=== PATIENT | male | born 1950 | race Caucasian/White ===

== ENCOUNTER → 2019-03-08 11:33 | Outpatient (CLI) | payer MEDICARE, OTHER, SELFPAY | PROVIDERS: Family Provider Family Medicine; PCP Family Medicine; Referring Provider Specialist; Visit Provider Specialist | DX: M79.652 Pain in left thigh (principal); Z96.642 Presence of left artificial hip joint | CPT/HCPCS: 87070; 87075; 87205 ==

== ENCOUNTER → 2019-03-22 08:00 | Outpatient (CLI) | payer MEDICARE, OTHER, SELFPAY ==
[2019-03-15 13:36] VITALS: BMI 29.6
== END ==
PROVIDERS: PCP Family Medicine; Referring Provider Surgery; Visit Provider Surgery
DX: Z01.89 Encounter for other specified special examinations (principal); E11.9 Type 2 diabetes mellitus without complications
CPT/HCPCS: 97802

== ENCOUNTER 2019-04-16 06:55 | Inpatient (IN) | payer MEDICARE, OTHER, SELFPAY ==
[2019-03-15 13:36] VITALS: BMI 29.6
[2019-03-26 11:20] VITALS: BP 140/66; PULSE 63; RESP 16; TEMP 36.3; O2SAT 98; BMI 30.1
[2019-03-26 12:17] LABS: Absolute Lymphocyte Count 2.73 X10^3/uL (0.83-4.51); Absolute Neutrophil Count 5.8 X10^3/uL (2.0-7.7); Basophil# 0.03 X10^3/uL; Basophil% 0.3 % (0-1); Eosinophil# 0.27 X10^3/uL; Eosinophils% 2.8 % (0-5); Hematocrit 40.7 % (40-54); Hemoglobin 13.1 g/dL (13.0-16.5); Lymphocyte # 2.73 X10^3/ul (4.0); Lymphocyte % 28.1 % (19-41); Mean Corp Hgb Conc 32.2 g/dL (32-36); Mean Corpuscular Hgb 28.2 pg (27.0-32.0); Mean Corpuscular Volume 87.7 fL (80-94); Monocyte# 0.83 X10^3/uL; Monocyte% 8.5 % (0-10); NRBC Flagged by Analyzer 0 % (0-5); Neutrophil # 5.83 X10^3/uL (2.7-7.7); Neutrophil % 59.9 % (47-70); Platelet Count 203 K/mm3 (150-450); RBC Distribution Width SD 41.2 fl (35.1-43.9); Red Blood Count 4.64 M/mm3 (4.6-6.2); White Blood Count 9.7 K/mm3 (4.4-11.0)
[2019-03-26 12:26] LABS: Hemoglobin A1c 7.7 % (4.2-6.3)
[2019-03-26 12:38] LABS: Anion Gap 7 (5-15); BUN 13 mg/dL (7-18); BUN/Creat Ratio 15.3 RATIO (10-20); Calcium,Total 9.8 mg/dL (8.5-10.1); Chloride 102 mmol/L (98-107); Creatinine, Serum 0.85 mg/dL (0.70-1.30); EST Glomerular Filtration Rate 95 mL/min (>60); Est Glom Filt Rate - Afr Amer 114 mL/min (>60); Estimated Creatinine Clearance 79.35 ml/min; Glucose 81 mg/dL (74-106); Potassium 3.8 mmol/L (3.5-5.1); Sodium Level 135 mmol/L (136-145)
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
[2019-04-16] VITALS (12 sets, daily range): BP systolic 87–153; BP diastolic 45–77; PULSE 54–90; RESP 16–18; TEMP 36.3–37.5; O2SAT 95–100; BMI 30.1
[2019-04-16 07:51] LABS: Bedside Glucose 301 mg/dL (70-110)
[2019-04-16] MEDS: Scopolamine 1mg/72hr Patch 1 PATCH TRANSDERM. (08:03)
[2019-04-16] MEDS: Acetaminophen 500 MG Tablet 1000 MG PO ×3 (08:03→21:44)
[2019-04-16] MEDS: Gabapentin 600 MG Tablet PO (08:04)
[2019-04-16] MEDS: Insulin Lispro 100 UNIT/ML INSULN.PEN SC (08:05)
[2019-04-16] MEDS: Vancomycin IV 1,000 MG/20 ML Vial 6000 MG OPERA.SITE (12:09)
--- NOTE | 2019-04-16 12:13 | PCM.OPRPT ---
Report of Operation Date of Procedure: 04/16/19 Pre-Operative Diagnosis: Infected left total hip replacement Post-Operative Diagnosis: Left total hip periprosthetic infection Surgery/Procedure Performed:: Posterior hip explant and placement of left antibiotic spacer Description of Surgical Findings:: Stable hip, appropriate leg lengths prosthetics technician: Chi Schneider Type of Anesthesia:: General Anesthesiologist: Denilson Lunsford Special Medications: Clindamycin, vancomycin and tobramycin in cement Specimen's removed: 3 separate specimens were sent to microbiology Estimated Blood Loss (mL): 300 mL Fluids Replaced: 2 L crystalloid Description of Procedure: Findings: Adequate reduction with stability of the hip and equal leg lengths measured intraoperatively. Components used: 1. Edin [place] 37.5, size 2 2. Edin X3 polyethylene liner, alpha code E 4. Edin double chromium 40 mm, +8 mm neck femoral head Brief history operative indications: 68-year-old male who presented with a sinus tract on his medial thigh. This was treated by the wound center which eventually healed. However he had subsequent developed hip pain. Infection work-up was consistent with a hip joint infection including fluid around the joint on imaging. At this time we elected to proceed with a antibiotic spacer. Risks and benefits were discussed with the patient which included but were not limited to blood loss, DVTs, PEs, infection, neurovascular damage, and dislocation. Procedure: On the date of procedure the patient's l hip was marked in the preoperative area. Patient was then taken back to the operating room where anesthesia assumed control of the C-spine and airway and administered anesthetic. Patient was transferred to the operating table and placed in the lateral decubitus position with the affected hip up. The patient was secured in the bed with the lateral positioners and leg lengths were checked. The l lower extremity was then prepped out in a sterile fashion using chlorhexidine while the surgeon scrubbed. Upon reentering the room the l lower extremity was draped in the standard orthopedic fashion and the incision was marked. A timeout was called and everyone agreed upon the side, the site, the procedure be performed, antibiotics given, and patient's identity. At this time incision was made through skin, subcutaneous tissue, and fat down to fascia. The fascia was then incised and a Charley retractor was placed. The soft tissue was then cleared from the posterior external rotators and the piriformis was identified. Posterior hip structures were taken down in a sleevelike fashion. At this time once we identified the joint a complete synovectomy was performed. Some of the synovium was sent for culture. We were able to then dislocate the joint. After dislocating the joint a bone tamp was used to dissociate the femoral head from the femur. Attention was then turned to the femur where the proximal femur was appropriately exposed using a vazquez retractor. At this time we used a bur as well as a flexible osteotome to break up the bone ingrowth interface. Once we are able to do this a extractor was placed on the femoral trunnion and it was backslapped out of the wound. This came out without significant bone loss. Membrane was removed from the canal and sent for culture. The canal was reamed and then broached to a size 2, 37.5 mm Benham stem. Our attention was then directed to the acetabulum and the anterior retractor was placed and a zelpi was used to retract the posterior capsule superiorly. All soft tissue debris was removed from around the acetabular rim. A 52 mm cup tome extractor system was used to break up the bone cement interface. Once this was done the acetabular component was removed from the wound. Membrane was removed from the acetabulum and sent for culture. At this time we touch the acetabulum with a 53 mm reamer to debride the interface. At this time the wound was copiously irrigated out with 6 L of normal saline under low-pressure lavage. Once this was done the trial femur was put into place. The trial acetabular component was selected. A millimeter acetabular shell size E. After this was done we trialed to get rough estimation of our leg length and stability. Once we had an idea of where we wanted to cement our stem the cement was mixed with the antibiotics on the back table. Once the cement was ready we pressurized the acetabulum and cemented the cup into place. We then turned our attention to the femur and cemented the femur into place around the proximal stem. Once the cemented cured we reduced the hip trialing with a +8 mm stem. This gave us adequate leg lengths and stable hip. Trial components were again dislocated with the help of my high school assistant football coach trunnion was cleared and the final implant was impacted into place. Finally the hip was reduced. Chlorhexidine solution was used to irrigate out the wound followed by copious amounts of normal saline. Posterior structures were not repairable. At this time the remainder the wound was closed in a layer aguillon fashion. Closure was then done using #1 Vicryl to close the fascia. A 2-0 Vicryl interrupted sutures were used to close the subcutaneous skin. Skin eh were used for final skin closure. A sterile dressing was placed. Patient was awakened by anesthesia and transferred to the [place]. Patient was then transferred to the PACU for recovery. Postoperative plan: Infectious disease will be consulted. Patient will be started on IV antibiotics for 6 weeks. He will be partial touchdown weightbearing for 2 weeks followed by partial weightbearing until the implants are removed and final hip replacement is placed. During the course of the procedure the physician high school assistant football coach played a vital role. His intimate knowledge of my steps in the procedure aided in safe and expedient completion of the procedure. The PA played a vital rolls in positioning particularly in obtaining the appropriate lateral decubitus positioning. The PA was also vital in the retraction of soft tissues during the exposure and especially the femoral work as this is a vital part of the procedure to prevent complications and fractures. The PA was also vital and protecting soft tissues during times of bony cuts and reaming. He also played a vital role in closure with my direct supervision. The PA was also important during reduction and dislocation of the joint and trials intraoperatively. - Complications No intraoperative complications - Admit VTE Documentation VTE Present on Admission: No VTE Mechan Device Prophylaxis: SCD's, Thigh High ALEXANDRA Hose VTE Pharm Prophylaxis ordered?: Yes
[2019-04-16] MEDS: Lactated Ringers 1,000 ML 125 ML IV ×4 (12:51→16:33)
[2019-04-16] MEDS: Lactated Ringers 1,000 ML 999 ML IV (12:52)
--- NOTE | 2019-04-16 12:56 | RAD_ITS ---
STUDY: X-RAY - PELVIS AND LEFT HIP REASON FOR EXAM: Male, 68 years old. Post op TECHNIQUE: 2 views of the pelvis and hip. COMPARISON: None. FINDINGS: The patient is status post left hip replacement. There is good alignment. Postoperative soft tissue changes. RAD/Hip Min 2 Views (Portable) IMPRESSION: Status post left hip replacement. The alignment. Postoperative soft tissue changes. Electronically Signed: Ryan Leonardo, at 13:28 EST , Service support ,
[2019-04-16 13:26] LABS: Bedside Glucose 122 mg/dL (70-110)
[2019-04-16 13:40] LABS: Bedside Glucose 117 mg/dL (70-110)
--- NOTE | 2019-04-16 14:31 | PCM.HP.ID ---
Reason for Consult: L hip PJI Consulted by: Dr. Raphael History of Present Illness: The patient is a 68 year old M with L hip replacement, presented with worsening pain, redness, swelling. At [facility] had CT done 03/05/19 which showed 6.5x4x3 abscess and likely joint involvement. Wound cx (+) group G strep. Referred to Dr. Raphael and Dr. Alcala as well as myself. Was started on duricef as an outpt while surgery was pending. Tolerated it well with no fever, no rash, no itching. L hip with increasing pain, taken to OR today 04/[address] Raphael for spacer placement. Feeling ok, in PACU now. Full ROS Performed and neg except as noted above. 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 PATIENT UNAWARE OF ANY OTHER ALLERGY. WASP STINGS Allergy (Severe, Uncoded 03/22/19 08:14) Anaphylaxis USES EPI PEN Home Medications: Ambulatory Orders Medication Instructions Recorded ascorbic acid (vitamin C) 1,000 mg 1 g PO BID tab 03/15/19 tablet atorvastatin 20 mg tablet 20 mg PO QHS 03/15/19 docusate sodium 100 mg capsule 100 mg PO PRN PRN cap 03/15/19 ibuprofen 200 mg capsule 200 mg PO Q6H PRN 03/15/19 metformin 500 mg tablet 500 mg PO BID tab 03/15/19 niacin 500 mg tablet 500 mg PO BID 03/15/19 tizanidine 4 mg capsule 4 mg PO PRN PRN cap 03/15/19 L.acidoph,Paracasei, B.lactis 1 ea PO DAILY 03/22/19 [Probiotic] Meloxicam 15 mg PO DAILY 03/22/19 Multivit-Min/FA/Lycopen/Lutein 1 ea PO DAILY 03/22/19 [Centrum Silver Men Tablet] [place]-3 Fatty Acids/Fish Oil [Fish 2 ea PO DAILY 03/22/19 Oil 1,000 mg Capsule] Ceftriaxone 2 gm IV Q24 41 Days #41 vial 04/16/19 Valsartan [Diovan] 160 mg PO DAILY 04/16/19 - Social History SMOKING STATUS:: Former smoker Vital Signs Temp Pulse Resp BP Pulse Ox 97.5 F L 82 18 138/68 H 100 04/16/19 14:18 04/16/19 14:18 04/16/19 14:18 04/16/19 14:18 04/16/19 14:18 Oxygen Flow Rate (L/min) 6 Oxygen Delivery Method Simple Mask Weight: 89.8 kg Body Mass Index (BMI) 30.1 Finger Stick Blood Glucose 120 reviewed. Wbc 10, Cr 0.8 - Other Studies Radiology: [] reviewed Other Studies: [] Route of nutrition/ use of supplements: [] Nutritional Intake: [] IV Site: [] Quiros Catheter: [] - Physical Exam General: Alert, Oriented x3, Cooperative, No apparent distress HEENT: Atraumatic, PERRLA, EOMI Neck: Supple, No Nodes Lungs: Clear to auscultation, Normal air movement Cardiovascular: Regular rate, Regular Rhythm Abdomen: Soft, Non Tender, Non-Distended Extremities: No edema Skin: Incision - L hip bandaged IV Site: Peripheral, without redness Neurological: Cranial nerves II-XII grossly intact - Assessment/Plan Antibiotics: [] Assessment/Plan: [] Group G strep L hip PJI - now s/p spacer placement 04/16/[address] Raphael. Reviewed [facility] labs and imaging. Wound cx 03/05/19 with group G strep. Will order picc, plan on 6 week course of ceftriaxone, stop date 05/28/19 with weekly bmp, cbc, and esr. Plan may change if other organisms are seen in surg cxs. Wrote rx for labs and abx. PCN allergy, but tolerated duricef without issue as an outpt. Will follow, thank you, d/w classification case manager.
[2019-04-16] MEDS: Morphine 2 MG/ML Syringe IV (16:36)
--- NOTE | 2019-04-16 16:44 | PCM.CONS.GEN ---
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 History of Present Illness: The patient is a 68 year old M with history of diabetes mellitus, hypertension and degenerative joint disease with history of multiple orthopedic surgeries is admitted after elective posterior hip explant and placement of left antibiotic spacer for infective left total hip replacement with an abscess and sinus tract. Patient had left hip replacement in 2008 in [facility] and then had left hip drainage of abscess in 07/01/2018 and 01/13/2019. At [facility], patient had CT in March 05, 2019 which showed 6.5 x 4 x 3 abscess with sinus tract. Patient seen by ID. Wound culture grew group G Streptococcus Patient on cefadroxil as an outpatient. [] Usually the blood pressure is 138/68- 1 =45/75 but was hypotensive 87/45 at 1452, low probably secondary to anesthetic effect. Patient had Ringer lactate 1 L bolus given in recovery room. 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 PATIENT UNAWARE OF ANY OTHER ALLERGY. WASP STINGS Allergy (Severe, Uncoded 03/22/19 08:14) Anaphylaxis USES EPI PEN Home Medications: Ambulatory Orders Medication Instructions Recorded ascorbic acid (vitamin C) 1,000 mg 1 g PO BID tab 03/15/19 tablet atorvastatin 20 mg tablet 20 mg PO QHS 03/15/19 docusate sodium 100 mg capsule 100 mg PO PRN PRN cap 03/15/19 ibuprofen 200 mg capsule 200 mg PO Q6H PRN 03/15/19 metformin 500 mg tablet 500 mg PO BID tab 03/15/19 niacin 500 mg tablet 500 mg PO BID 03/15/19 tizanidine 4 mg capsule 4 mg PO PRN PRN cap 03/15/19 L.acidoph,Paracasei, B.lactis 1 ea PO DAILY 03/22/19 [Probiotic] Meloxicam 15 mg PO DAILY 03/22/19 Multivit-Min/FA/Lycopen/Lutein 1 ea PO DAILY 03/22/19 [Centrum Silver Men Tablet] [place]-3 Fatty Acids/Fish Oil [Fish 2 ea PO DAILY 03/22/19 Oil 1,000 mg Capsule] Ceftriaxone 2 gm IV Q24 41 Days #41 vial 04/16/19 Valsartan [Diovan] 160 mg PO DAILY 04/16/19 Surgical History: Surgical History (Last Reviewed 03/17/19 @ 18:13 by Chavo Alcala MD) History of carpal tunnel surgery Z98.890 History of elbow surgery Z98.890 History of epidermal inclusion cyst excision Z98.890, Z87.2 2 CLEAN OUTS OF CYST ON LEFT LEG History of shoulder replacement Z96.619 History of total left hip replacement Z96.642 Smoking Status: Former smoker Tobacco Use: Non-smoker - *Family History Paternal Family History: Family History (Last Reviewed 03/17/19 @ 18:13 by Chavo Alcala MD) Other Arthritis High cholesterol Hypertension Thyroid disorder History Items: - - Degenerative arthritis and had hip surgeries. Review of Systems Constitutional: Reports: - - Lethargic. Denies: Chills, Fever, Weight Change HEENT: Denies: Head Aches, Sinus Congestion, Sinus Drainage Cardiovascular: Denies: Chest Pain, Palpitations Respiratory: Denies: Cough, Shortness of breath at rest, Sputum production Gastrointestinal: Denies: Abdominal Pain, Nausea, Vomiting Genitourinary: Denies: Dysuria Musculoskeletal: Reports: Joint Pain, Joint Tenderness, Muscle pain Skin: Denies: Rash, Wounds Neurological: Reports: Balance problems. Denies: Focal weakness, Numbness, Tingling Psychiatric: Denies: Anxiety, Depression, Homicidal Ideations, Suicidal Ideations Hematologic/ Lymphatic: Denies: Easy Bruising, Easy Bleeding - Physical Exam Vitals/I&O's: Vital Signs Temp Pulse Resp BP Pulse Ox 98.1 F 73 16 87/45 L 95 04/16/19 14:52 04/16/19 14:52 04/16/19 14:52 04/16/19 14:52 04/16/19 14:52 Oxygen Flow Rate (L/min) 6 Oxygen Delivery Method Room Air Weight: 197 lb 15.602 oz Body Mass Index (BMI) 30.1 Finger Stick Blood Glucose 120 Intake and Output for Last 24 Hours 04/14/19 04/15/19 04/16/19 23:59 23:59 23:59 Intake Total 3497.08 / 3497.08 Balance 3497.08 / 3497.08 General: Alert, Oriented x3, Cooperative HEENT: Atraumatic, PERRLA, EOMI, Normocephalic Oral: No Gingival or Mucosal Lesions/ Ulcerations, Dry Mucosa Neck: Supple, No JVD, Negative Carotid Bruits Lungs: Clear to auscultation, No rhonchi, No wheeze, No rales, Diminished Cardiovascular: Regular rate, Regular Rhythm, Normal S1, Normal S2, No murmurs Abdomen: Bowel Sounds Present, Soft, Non Tender Extremities: No edema, Capillary Refill Less than 3 Seconds Skin: No rashes, No breakdown Musculoskeletal: No Tenderness to Palpation of Joints or Extremities, Arthritic Changes, - - Left hip dressing is dry. Neurological: Cranial nerves II-XII grossly intact, Deep Tendon Reflexes 2+/4 and Symmetrical, Neuro grossly intact Psych/Mental Status: Normal Affect, Appropriate Microbiology Past 72 Hours 04/16/19 Unknown Tissue - Other Gram Stain - Final 04/16/19 Unknown Tissue - Other Gram Stain - Final Laboratory Results 04/16/19 07:37: POC Glucose 301 H 04/16/19 10:59: POC Glucose 117 H 04/16/19 13:04: POC Glucose 122 H Current Medications Acetaminophen (Tylenol) 1,000 mg PO Q8 [facility] Ascorbic Acid (Vitamin C) 1,000 mg PO BIDCM [facility] Aspirin (Aspirin, Baby) 81 mg PO BID [facility] Atorvastatin Calcium (Lipitor) 20 mg PO QHS [facility] Docusate Sodium (Colace) 100 mg PO BID PRN PRN PRN Reason: Constipation Enteral Nutritional Formula (Ensure Surgery) 237 ml PO TIDCM [facility] Famotidine (Pepcid) 20 mg PO DAILY [facility] Lactated Ringer's () 1,000 mls @ 125 mls/hr IV .Q8H [facility] Last Infusion: 04/16/19 16:20 Dose: Infused Documented by: Lactated Ringer's () 1,000 mls @ 125 mls/hr IV .Q8H [facility] Last Admin: 04/16/19 16:33 Dose: 125 mls/hr Documented by: Clindamycin Phosphate 600 mg/ (Dextrose) 54 mls @ 100 mls/hr IV Q6H [facility] Stop: 04/17/19 03:18 Ceftriaxone Sodium 2 gm/ (Sodium Chloride) 50 mls @ 100 mls/hr IV Q24 [facility] Last Admin: 04/16/19 16:30 Dose: 100 mls/hr Documented by: Insulin Human Lispro (Humalog Jeffreyikpen (Bk)) 1 - 6 unit SC Q4H PRN PRN; Protocol PRN Reason: BG>/= 180, SEE PROTOCOL Last Admin: 04/16/19 08:05 Dose: 4 units Documented by: Ketorolac Tromethamine (Toradol (Bkc)) 15 mg IV Q6H PRN PRN PRN Reason: Pain Score 1-5/10 Lactobacillus Acidophilus (Acidophilus) 1 tablet PO DAILY [facility] Meloxicam (Mobic) 7.5 mg PO BID [facility] Metformin HCl (Glucophage) 500 mg PO BIDCM [facility] Morphine Sulfate () 2 - 4 mg IV Q2H PRN PRN PRN Reason: Pain Score 4-10/10 Last Admin: 04/16/19 16:36 Dose: 2 mg Documented by: Niacin (Niaspan) 500 mg PO BID [facility] Mjact-3-Ryau Ethyl Esters (Lovaza) 2 gm PO DAILY [facility] Ondansetron HCl (Zofran) 4 mg IV Q8H PRN PRN PRN Reason: NAUSEA Oxycodone HCl (Oxyir) 5 - 10 mg PO Q4H PRN PRN PRN Reason: Pain Score 4-10/10 Promethazine HCl (Phenergan) 12.5 mg IM Q6H PRN PRN; Protocol PRN Reason: NAUSEA/VOMITING Senna/Docusate Sodium (Senokot-S, Cynthia-Colace) 2 tablet PO BID [facility] Sodium Chloride () 10 - 40 ml IV UD PRN PRN Reason: SALINE FLUSH Tizanidine HCl (Zanaflex) 4 mg PO TID PRN PRN PRN Reason: MUSCLE RELAXATION Valsartan (Diovan) 160 mg PO DAILY [facility] Assessment/Plan This is a 68-year-old gentleman with history of degenerative arthritis, admitted after elective posterior hip explant and placement of left antibiotic spacer for infective left total hip replacement with an abscess and sinus tract. 1. Infected left total hip replacement with abscess and sinus tract status post left hip antibiotic spacer and explant: [facility] ceft[facility]ax[facility] as per ID recommendation. Patient grew group G Streptococcus wound culture before. Tissue culture from surgery are sent and pending. Will follow the tissue culture. PICC line ordered. Plan for 6 weeks course of ceftriaxone, stop date 05/28/2019 as per ID. Pain control. On tizanidine. 2. Hypertension: Blood pressure has recovered 110/62. Hold valsartan today and resume from tomorrow with holding parameters. 3. Diabetes mellitus type 2: Patient is on metformin. Glucose is controlled 122, maximum 177. Continue Accu-Cheks AC measures and cover with blood sliding scale. 4. Dyslipidemia: Patient is on atorvastatin, niacin and omega-3 fatty acid at home. Continue. 5. Other comorbidities include history of degenerative arthritis, multiple orthopedic surgeries: Stable. PT and OT ordered. DVT prophylaxis: On aspirin 81 mg twice daily as per orthopedic surgery recommendation. Code Visit Inpatient E&M: 47756 Init Hosp L2
[2019-04-16] MEDS: Ascorbic Acid 500 MG Tablet 1000 MG PO (16:50)
[2019-04-16] MEDS: metFORMIN HCl 500 MG Tablet PO (16:51)
[2019-04-16] MEDS: Ensure Surgery 237 ML LIQUID PO (16:57)
[2019-04-16 17:00] LABS: Bedside Glucose 177 mg/dL (70-110)
[2019-04-16] MEDS: Ketorolac 15 MG/ML Vial IV (17:19)
[2019-04-16] MEDS: 0.9% Saline Lock 10 ML Syringe IV ×2 (17:19→21:46)
[2019-04-16 21:03] LABS: Hematocrit 28.4 % (40-54); Hemoglobin 9.3 g/dL (13.0-16.5)
[2019-04-16] MEDS: Aspirin 81 MG TAB.CHEW PO (21:44)
[2019-04-16] MEDS: Niacin SA 500 MG Tablet PO (21:44)
[2019-04-16] MEDS: Senna/Docusate Sodium 1 Tablet 2 TABLET PO (21:45)
[2019-04-16] MEDS: Atorvastatin Calcium 20 MG Tablet PO (21:45)
[2019-04-16] MEDS: oxyCODONE 5 MG Tablet PO (21:48)
[2019-04-17] MEDS: Lactated Ringers 1,000 ML 125 ML IV ×2 (01:57→11:00)
[2019-04-17 02:00] VITALS: BP 140/67; PULSE 73; RESP 16; TEMP 36.8; O2SAT 98
[2019-04-17] MEDS: oxyCODONE 5 MG Tablet PO ×4 (02:02→21:15)
[2019-04-17] MEDS: Acetaminophen 500 MG Tablet 1000 MG PO ×3 (06:45→21:15)
[2019-04-17 07:23] LABS: Hematocrit 29.2 % (40-54); Hemoglobin 9.5 g/dL (13.0-16.5); Mean Corp Hgb Conc 32.5 g/dL (32-36); Mean Corpuscular Hgb 29.1 pg (27.0-32.0); Mean Corpuscular Volume 89.6 fL (80-94); Mean Platelet Vol. 10.5 fl (6.2-12.0); Platelet Count 139 K/mm3 (150-450); RBC Distribution Width CV 12.8 % (11.6-14.6); Red Blood Count 3.26 M/mm3 (4.6-6.2); White Blood Count 8.2 K/mm3 (4.4-11.0)
[2019-04-17 08:11] LABS: Anion Gap 6 (5-15); BUN 15 mg/dL (7-18); BUN/Creat Ratio 15.3 RATIO (10-20); Calcium,Total 8.4 mg/dL (8.5-10.1); Chloride 100 mmol/L (98-107); Creatinine, Serum 0.98 mg/dL (0.70-1.30); EST Glomerular Filtration Rate 80 mL/min (>60); Est Glom Filt Rate - Afr Amer 97 mL/min (>60); Estimated Creatinine Clearance 68.83 ml/min; Glucose 150 mg/dL (74-106); Potassium 4.2 mmol/L (3.5-5.1); Sodium Level 135 mmol/L (136-145)
[2019-04-17] MEDS: Aspirin 81 MG TAB.CHEW PO ×2 (08:35→21:16)
[2019-04-17] MEDS: Ascorbic Acid 500 MG Tablet 1000 MG PO ×2 (08:35→17:10)
[2019-04-17] MEDS: metFORMIN HCl 500 MG Tablet PO ×2 (08:36→17:10)
[2019-04-17] MEDS: Omega-3 Acid Ethyl Esters 1 GM Capsule 2 GM PO (08:36)
[2019-04-17] MEDS: Famotidine 20 MG Tablet PO (08:37)
[2019-04-17] MEDS: Senna/Docusate Sodium 1 Tablet 2 TABLET PO ×2 (08:37→21:16)
[2019-04-17] MEDS: Ensure Surgery 237 ML LIQUID PO ×3 (08:39→17:09)
[2019-04-17 08:45] VITALS: BP 88/43; PULSE 74; RESP 18; TEMP 37.2; O2SAT 94
[2019-04-17] MEDS: Lactated Ringers 1,000 ML 999 ML IV (09:15)
--- NOTE | 2019-04-17 09:16 | PN.ORTHO_ITS ---
Subjective: Patient is doing well, no acute events overnight. He did have some fluctuations in blood pressure and blood pressure this morning was systolic of 88. His hemoglobin is stable from yesterday. He did experience some lightheadedness when getting up this morning. No fevers chills or night sweats otherwise. No chest pain or shortness of breath. Hip feels good. PICC line is been placed. Objective: Postop x-rays show appropriately placed antibiotic spacer in the left hip. - Physical Exam Vitals/I&O's: Vital Signs Temp Pulse Resp BP Pulse Ox 98.9 F 74 18 88/43 L 94 04/17/19 08:45 04/17/19 08:45 04/17/19 08:45 04/17/19 08:45 04/17/19 08:45 Oxygen Flow Rate (L/min) 6 Oxygen Delivery Method Room Air Weight: 197 lb 15.602 oz Body Mass Index (BMI) 30.1 Finger Stick Blood Glucose 120 Intake and Output for Last 24 Hours 04/15/19 04/16/19 04/17/19 23:59 23:59 23:59 Intake Total 4785.08 / 4785.08 1806.08 / 1806.08 Output Total 100 / 100 1750 / 1750 Balance 4685.08 / 4685.08 56.08 / 56.08 General: Alert, Oriented x3, Cooperative Extremities: - - Left lower extremity: Dressing is clean dry and intact Sensations intact to light touch saphenous, sural, superficial peroneal, deep peroneal, and tibial distributions Motors intact EHL, DF, PF calves are soft and supple Microbiology Past 72 Hours 04/16/19 Unknown Tissue - Other Gram Stain - Final 04/16/19 Unknown Tissue - Other Gram Stain - Final Laboratory Results 04/16/19 10:59: POC Glucose 117 H 04/16/19 13:04: POC Glucose 122 H 04/16/19 16:48: POC Glucose 177 H 04/16/19 20:42: Hgb 9.3 L, Hct 28.4 L 04/17/19 05:55: WBC 8.2, RBC 3.26 L, Hgb 9.5 L, Hct 29.2 L, MCV 89.6, MCH 29.1, MCHC 32.5, RDW Std Deviation 42.0, RDW Coeff of Kwame 12.8, Plt Count 139 L, MPV 10.5 04/17/19 05:55: Sodium 135 L, Potassium 4.2, Chloride 100, Carbon Dioxide 29.0, Anion Gap 6, BUN 15, Creatinine 0.98, Estim Creat Clear Calc 68.83, Est GFR (MDRD) Af Amer 97, Est GFR (MDRD) Non-Af 80, BUN/Creatinine Ratio 15.3, Glucose 150 H, Calcium 8.4 L Current Medications Acetaminophen (Tylenol) 1,000 mg PO Q8 [facility] Last Admin: 04/17/19 06:45 Dose: 1,000 mg Documented by: Ascorbic Acid (Vitamin C) 1,000 mg PO BIDCM [facility] Last Admin: 04/17/19 08:35 Dose: 1,000 mg Documented by: Aspirin (Aspirin, Baby) 81 mg PO BID [facility] Last Admin: 04/17/19 08:35 Dose: 81 mg Documented by: Atorvastatin Calcium (Lipitor) 20 mg PO QHS [facility] Last Admin: 04/16/19 21:45 Dose: 20 mg Documented by: Docusate Sodium (Colace) 100 mg PO BID PRN PRN PRN Reason: Constipation Enteral Nutritional Formula (Ensure Surgery) 237 ml PO TIDCM [facility] Last Admin: 04/17/19 08:39 Dose: 237 ml Documented by: Famotidine (Pepcid) 20 mg PO DAILY [facility] Last Admin: 04/17/19 08:37 Dose: 20 mg Documented by: Lactated Ringer's () 1,000 mls @ 125 mls/hr IV .Q8H [facility] Last Infusion: 04/17/19 02:30 Dose: 125 mls/hr Documented by: Ceftriaxone Sodium 2 gm/ (Sodium Chloride) 50 mls @ 100 mls/hr IV Q24 [facility] Last Infusion: 04/16/19 17:00 Dose: Infused Documented by: Lactated Ringer's () 1,000 mls @ 999 mls/hr IV .Q1H1M [facility] Stop: 04/17/19 09:55 Last Admin: 04/17/19 09:15 Dose: 999 mls/hr Documented by: Insulin Human Lispro (Humalog Kwikpen (Bkc)) 1 - 6 unit SC Q4H PRN PRN; Protocol PRN Reason: BG>/= 180, SEE PROTOCOL Last Admin: 04/16/19 08:05 Dose: 4 units Documented by: Ketorolac Tromethamine (Toradol (Bkc)) 15 mg IV Q6H PRN PRN PRN Reason: Pain Score 1-5/10 Last Admin: 04/16/19 17:19 Dose: 15 mg Documented by: Lactobacillus Acidophilus (Acidophilus) 1 tablet PO DAILY [facility] Last Admin: 04/17/19 08:36 Dose: 1 tablet Documented by: Losartan Potassium (Cozaar) 50 mg PO DAILY [facility] Last Admin: 04/17/19 08:44 Dose: Not Given Documented by: Meloxicam (Mobic) 7.5 mg PO BID [facility] ([facility]) [facility] Last Admin: 04/17/19 08:36 Dose: 500 mg Documented by: Morphine Sulfate () 2 - 4 mg IV Q2H PRN PRN PRN Reason: Pain Score 4-10/10 Last Admin: 04/16/19 16:36 Dose: 2 mg Documented by: Niacin (Niaspan) 500 mg PO BID [facility] Last Admin: 04/16/19 21:44 Dose: 500 mg Documented by: Tmpdx-0-Viul Ethyl Esters (Lovaza) 2 gm PO DAILY [facility] Last Admin: 04/17/19 08:36 Dose: 2 gm Documented by: Ondansetron HCl (Zofran) 4 mg IV Q8H PRN PRN PRN Reason: NAUSEA Oxycodone HCl (Oxyir) 5 - 10 mg PO Q4H PRN PRN PRN Reason: Pain Score 4-10/10 Last Admin: 04/17/19 06:45 Dose: 10 mg Documented by: Promethazine HCl (Phenergan) 12.5 mg IM Q6H PRN PRN; Protocol PRN Reason: NAUSEA/VOMITING Senna/Docusate Sodium (Senokot-S, Cynthia-Colace) 2 tablet PO BID [facility] Last Admin: 04/17/19 08:37 Dose: 2 tablet Documented by: Sodium Chloride () 10 - 40 ml IV UD PRN PRN Reason: SALINE FLUSH Last Admin: 04/16/19 21:46 Dose: 10 ml Documented by: Tizanidine HCl (Zanaflex) 4 mg PO TID PRN PRN PRN Reason: MUSCLE RELAXATION Medical Necessity - Tobacco Use Smoking Status: Former smoker Tobacco Use: Non-smoker Assessment/Plan Postop day 1 removal of left total hip replacement placement of antibiotic spacer 1. Pain control: Pain currently under control continue with current regimen 2. PJI: Previous cultures of leg wound or for group G strep. Patient is done well on cephalosporins. Plan is to continue on cephalosporins as long as there are no additional organisms noted on cultures. 3. DVT prophylaxis: Aspirin 4. Therapy: Toe-touch weightbearing. Hip precautions. 5. Wound: Medial thigh wound remained stable. No drainage. Well-healed at this time. 6. Encourage incentive spirometry 7. Hypotension: At this point patient's hemoglobin is stable and should not require transfusion. Going to bolus the patient. Recheck hemoglobin hematocrit tomorrow. Monitor symptoms throughout the day. 8. Anemia: Hemoglobin 9.5 this morning. Stable from yesterday. Will monitor symptoms. At this point should not require transfusion. Due to intraoperative blood loss. 9. Disposition: This will be dependent on patient's mobility and ant ibiotics/antifungal regimens. Anticipated discharge will be early in the week. Patient is concerned about ability to administer antibiotics at home as well as his mobility. At this time will need to consider potential discharge to alf facility or transitional care unit. [facility] Office:
--- NOTE | 2019-04-17 09:26 | PN_ITS ---
Reason for Visit: Left hip explant and antibiotic spacer, postop day 1 Objective: Patient blood pressure in the morning dropped to 88/43. On IV fluid Ringer lactate 1 L bolus ordered by Dr. Raphael. H&H is stable. Hemoglobin 9.3/28.4 yesterday night and today 9.5/29.2. Vitals/I&O's: Vital Signs Temp Pulse Resp BP Pulse Ox 98.9 F 74 18 88/43 L 94 04/17/19 08:45 04/17/19 08:45 04/17/19 08:45 04/17/19 08:45 04/17/19 08:45 Oxygen Flow Rate (L/min) 6 Oxygen Delivery Method Room Air Weight: 197 lb 15.602 oz Body Mass Index (BMI) 30.1 Finger Stick Blood Glucose 120 Intake and Output for Last 24 Hours 04/15/19 04/16/19 04/17/19 23:59 23:59 23:59 Intake Total 4785.08 / 4785.08 2651.91 / 2651.91 Output Total 100 / 100 1750 / 1750 Balance 4685.08 / 4685.08 901.91 / 901.91 General: Alert, Oriented x3, Cooperative HEENT: Atraumatic, PERRLA, EOMI, Normocephalic Neck: Supple, No JVD, Negative Carotid Bruits Lungs: Clear to auscultation, Normal air movement, No rhonchi, No wheeze, No rales, Diminished Cardiovascular: Regular rate, Regular Rhythm, Normal S1, Normal S2, No murmurs Abdomen: Bowel Sounds Present, Soft, Non Tender, Non-Distended Extremities: Capillary Refill Less than 3 Seconds, Edema Skin: No rashes, No breakdown Musculoskeletal: Arthritic Changes, Tenderness - Mild tenderness over operative site, - - Dressing is dry over left hip Neurological: Cranial nerves II-XII grossly intact, Deep Tendon Reflexes 2+/4 and Symmetrical, Neuro grossly intact Psych/Mental Status: Normal Affect, Appropriate Microbiology Past 72 Hours 04/16/19 Unknown Tissue - Other Gram Stain - Final 04/16/19 Unknown Tissue - Other Gram Stain - Final Laboratory Results 04/16/19 10:59: POC Glucose 117 H 04/16/19 13:04: POC Glucose 122 H 04/16/19 16:48: POC Glucose 177 H 04/16/19 20:42: Hgb 9.3 L, Hct 28.4 L 04/17/19 05:55: WBC 8.2, RBC 3.26 L, Hgb 9.5 L, Hct 29.2 L, MCV 89.6, MCH 29.1, MCHC 32.5, RDW Std Deviation 42.0, RDW Coeff of Kwame 12.8, Plt Count 139 L, MPV 10.5 04/17/19 05:55: Sodium 135 L, Potassium 4.2, Chloride 100, Carbon Dioxide 29.0, Anion Gap 6, BUN 15, Creatinine 0.98, Estim Creat Clear Calc 68.83, Est GFR (MDRD) Af Amer 97, Est GFR (MDRD) Non-Af 80, BUN/Creatinine Ratio 15.3, Glucose 150 H, Calcium 8.4 L Current Medications Acetaminophen (Tylenol) 1,000 mg PO Q8 [facility] Last Admin: 04/17/19 06:45 Dose: 1,000 mg Documented by: Ascorbic Acid (Vitamin C) 1,000 mg PO BIDCM [facility] Last Admin: 04/17/19 08:35 Dose: 1,000 mg Documented by: Aspirin (Aspirin, Baby) 81 mg PO BID [facility] Last Admin: 04/17/19 08:35 Dose: 81 mg Documented by: Atorvastatin Calcium (Lipitor) 20 mg PO QHS [facility] Last Admin: 04/16/19 21:45 Dose: 20 mg Documented by: Docusate Sodium (Colace) 100 mg PO BID PRN PRN PRN Reason: Constipation Enteral Nutritional Formula (Ensure Surgery) 237 ml PO TIDCM [facility] Last Admin: 04/17/19 08:39 Dose: 237 ml Documented by: Famotidine (Pepcid) 20 mg PO DAILY [facility] Last Admin: 04/17/19 08:37 Dose: 20 mg Documented by: Lactated Ringer's () 1,000 mls @ 125 mls/hr IV .Q8H [facility] Last Infusion: 04/17/19 09:16 Dose: 0 mls/hr Documented by: Ceftriaxone Sodium 2 gm/ (Sodium Chloride) 50 mls @ 100 mls/hr IV Q24 [facility] Last Infusion: 04/16/19 17:00 Dose: Infused Documented by: Lactated Ringer's () 1,000 mls @ 999 mls/hr IV .Q1H1M [facility] Stop: 04/17/19 09:55 Last Admin: 04/17/19 09:15 Dose: 999 mls/hr Documented by: Insulin Human Lispro (Humalog Kwikpen ([facility])) 1 - 6 unit SC Q4H PRN PRN; Protocol PRN Reason: BG>/= 180, SEE PROTOCOL Last Admin: 04/16/19 08:05 Dose: 4 units Documented by: Ketorolac Tromethamine (Toradol ([facility])) 15 mg IV Q6H PRN PRN PRN Reason: Pain Score 1-5/10 Last Admin: 04/16/19 17:19 Dose: 15 mg Documented by: Lactobacillus Acidophilus (Acidophilus) 1 tablet PO DAILY [facility] Last Admin: 04/17/19 08:36 Dose: 1 tablet Documented by: Losartan Potassium (Cozaar) 50 mg PO DAILY [facility] Last Admin: 04/17/19 08:44 Dose: Not Given Documented by: Meloxicam (Mobic) 7.5 mg PO BID [facility]) [facility] Last Admin: 04/17/19 08:36 Dose: 500 mg Documented by: Morphine Sulfate () 2 - 4 mg IV Q2H PRN PRN PRN Reason: Pain Score 4-10/10 Last Admin: 04/16/19 16:36 Dose: 2 mg Documented by: Niacin (Niaspan) 500 mg PO BID [facility] Last Admin: 04/16/19 21:44 Dose: 500 mg Documented by: [id number] Ethyl Esters (Lovaza) 2 gm PO DAILY [facility] Last Admin: 04/17/19 08:36 Dose: 2 gm Documented by: Ondansetron HCl (Zofran) 4 mg IV Q8H PRN PRN PRN Reason: NAUSEA Oxycodone HCl (Oxyir) 5 - 10 mg PO Q4H PRN PRN PRN Reason: Pain Score 4-10/10 Last Admin: 04/17/19 06:45 Dose: 10 mg Documented by: Promethazine HCl (Phenergan) 12.5 mg IM Q6H PRN PRN; Protocol PRN Reason: NAUSEA/VOMITING Senna/Docusate Sodium (Senokot-S, Cynthia-Colace) 2 tablet PO BID [facility] Last Admin: 04/17/19 08:37 Dose: 2 tablet Documented by: Sodium Chloride () 10 - 40 ml IV UD PRN PRN Reason: SALINE FLUSH Last Admin: 04/16/19 21:46 Dose: 10 ml Documented by: Tizanidine HCl (Zanaflex) 4 mg PO TID PRN PRN PRN Reason: MUSCLE RELAXATION STROKE Vital Signs/Narrative: Vital Signs Temp Pulse Resp BP Pulse Ox 04/17/19 08:45 98.9 F 74 18 88/43 L 94 Medical Necessity - Tobacco Use Smoking Status: Former smoker Tobacco Use: Non-smoker Assessment/Plan This is a 68-year-old gentleman with history of degenerative arthritis, admitted after elective posterior hip explant and placement of left antibiotic spacer for infective left total hip replacement with an abscess and sinus tract. 1. Infected left total hip replacement with abscess and sinus tract status post left hip antibiotic spacer and explant: Patient is being in [facility]. On IV ceftriaxone as per ID recommendation. Patient grew group G Streptococcus wound culture before. Tissue culture from surgery are sent and pending. Will follow the tissue culture. PICC line ordered. Plan for 6 weeks course of ceftriaxone, stop date 05/28/2019 as per ID. Pain control. On tizanidine. 04/17/2019: Gram stain of tissue culture from 04/16 shows no growth. Follow the culture. No fever or chills. Continue IV ceftriaxone. 2. Hypotension with history of hypertension: Blood pressure was low in the morning. 1 L of Ringer lactate was given. Blood pressure recovered. Orthostatic blood pressure was done and is stable, paradoxically blood pressure went up from 107/54 in sitting to 129/64 in standing probably wrong reading Hold valsartan. 3. Diabetes mellitus type 2: Patient is on metformin. Glucose is controlled 122, maximum 177. Continue Accu-Cheks AC measures and cover with blood sliding scale. Accu-Cheks are controlled. 4. Dyslipidemia: Patient is on atorvastatin, niacin and omega-3 fatty acid at home. Hold niacin as it can cause vasodilatation, flushing and mild hypotension 5. Other comorbidities include history of degenerative arthritis, multiple orthopedic surgeries: Stable. PT and OT ordered. DVT prophylaxis: On aspirin 81 mg twice daily as per orthopedic surgery recommendation. Code Visit Inpatient E&M: 30274 Subs Hosp L2
[2019-04-17 11:05] VITALS: BP 97/50; PULSE 73
[2019-04-17 11:44] VITALS: BP 107/54; BP 109/61; BP 129/64; PULSE 70; PULSE 76; PULSE 88
[2019-04-17] MEDS: Docusate Sodium 100 MG Capsule PO (14:13)
[2019-04-17 15:40] VITALS: BP 124/65; PULSE 88; RESP 18; TEMP 37.4; O2SAT 96
[2019-04-17] MEDS: 0.9% Saline Lock 10 ML Syringe IV (15:44)
[2019-04-17] MEDS: Ketorolac 15 MG/ML Vial IV (15:44)
--- NOTE | 2019-04-17 17:09 | CM.UR ---
Went to meet with patient to give SNF list. Patient is undecided and wants to discuss with . States he does have concerns about getting into his home as he has 4-5 steps to get in home. Does have a railing. Home is 1 floor otherwise. [place] Prior to Hip problems patient was independent with all ADLs. He is a mckay. DME: Walker, SBC, iceman, and grab bars. Mentioned that the grab bars are the suction cup ones. Instructed on the safety issues with the suction cup ones. States he is aware as they have come off in the past and he landed on his butt. Never been in a SNF before but did have [facility]HC. [facility] and [facility] doing his wound vac before. Vet is agreeable to home with HHC, if he is mobile enough. He thinks he may need a week or two in SNF then can go home and finish IVAB at home. but wants to discuss with the boss. Accepted list of facilities. States [facility] would be his first choice. LVM alerting them to possible referral. Chucky Engle, KANG, CCM.
[2019-04-17 21:00] VITALS: BP 141/81; PULSE 78; RESP 18; TEMP 36.9; O2SAT 98
[2019-04-17] MEDS: Niacin SA 500 MG Tablet PO (21:16)
[2019-04-17] MEDS: Atorvastatin Calcium 20 MG Tablet PO (21:16)
[2019-04-17] MEDS: MELATONIN 3 MG TABLET PO (23:33)
[2019-04-18 03:47] VITALS: BP 139/72; PULSE 68; RESP 18; TEMP 36.6; O2SAT 97
[2019-04-18] MEDS: Acetaminophen 500 MG Tablet 1000 MG PO ×3 (05:38→21:52)
[2019-04-18 06:42] LABS: Hematocrit 28.2 % (40-54); Hemoglobin 9.2 g/dL (13.0-16.5); Mean Corp Hgb Conc 32.6 g/dL (32-36); Mean Corpuscular Hgb 29.5 pg (27.0-32.0); Mean Corpuscular Volume 90.4 fL (80-94); Mean Platelet Vol. 10.9 fl (6.2-12.0); Platelet Count 133 K/mm3 (150-450); RBC Distribution Width SD 42.3 fl (35.1-43.9); Red Blood Count 3.12 M/mm3 (4.6-6.2); White Blood Count 7.4 K/mm3 (4.4-11.0)
[2019-04-18 09:27] VITALS: BP 135/70; PULSE 81; RESP 18; TEMP 37.1; O2SAT 99
[2019-04-18] MEDS: Aspirin 81 MG TAB.CHEW PO ×2 (09:32→21:52)
[2019-04-18] MEDS: metFORMIN HCl 500 MG Tablet PO ×2 (09:32→18:13)
[2019-04-18] MEDS: Losartan Potassium 50 MG Tablet PO (09:32)
[2019-04-18] MEDS: Ascorbic Acid 500 MG Tablet 1000 MG PO ×2 (09:32→18:13)
[2019-04-18] MEDS: oxyCODONE 5 MG Tablet PO (09:32)
[2019-04-18] MEDS: Docusate Sodium 100 MG Capsule PO (09:32)
[2019-04-18] MEDS: Omega-3 Acid Ethyl Esters 1 GM Capsule 2 GM PO (09:33)
[2019-04-18] MEDS: Famotidine 20 MG Tablet PO (09:33)
[2019-04-18] MEDS: Senna/Docusate Sodium 1 Tablet 2 TABLET PO ×2 (09:33→21:52)
[2019-04-18] MEDS: Ensure Surgery 237 ML LIQUID PO ×3 (09:34→18:13)
[2019-04-18] MEDS: Niacin SA 500 MG Tablet PO ×2 (09:34→21:52)
[2019-04-18] MEDS: 0.9% Saline Lock 10 ML Syringe IV ×2 (09:35→10:40)
[2019-04-18 10:41] VITALS: BP 119/60; PULSE 76
--- NOTE | 2019-04-18 12:19 | PN_ITS ---
Reason for Visit: Infected left total hip replacement. Status post explant and placement of antibiotic spacer Objective: Patient blood pressure is good. 139/72, 119/60. Yesterday orthostatic was not positive for hypotension. Does not have dizziness, near-syncope or syncope. No chest pain or pressure no shortness of breath. Vitals/I&O's: Vital Signs Temp Pulse Resp BP Pulse Ox 98.7 F 76 18 119/60 99 04/18/19 09:27 04/18/19 10:41 04/18/19 09:27 04/18/19 10:41 04/18/19 09:27 Oxygen Flow Rate (L/min) 6 Oxygen Delivery Method Room Air Weight: 197 lb 15.602 oz Body Mass Index (BMI) 30.1 Finger Stick Blood Glucose 120 Intake and Output for Last 24 Hours 04/16/19 04/17/19 04/18/19 23:59 23:59 23:59 Intake Total 4785.08 / 4785.08 5818.57 / 5818.57 1247.75 / 1247.75 Output Total 100 / 100 5275 / 5275 2250 / 2250 Balance 4685.08 / 4685.08 543.57 / 543.57 -1002.25 / -1002.25 General: Alert, Oriented x3, Cooperative HEENT: Atraumatic, PERRLA, EOMI, Normocephalic Neck: Supple, No JVD, Negative Carotid Bruits Lungs: Clear to auscultation, No rhonchi, No wheeze, No rales, Diminished Cardiovascular: Regular rate, Regular Rhythm, Normal S1, Normal S2, No murmurs Abdomen: Bowel Sounds Present, Soft, Non Tender, Non-Distended Extremities: No edema, Capillary Refill Less than 3 Seconds Skin: Ulcer/ Wound - Left hip surgical incision wound. Musculoskeletal: Arthritic Changes, Tenderness - Mild tenderness over operative area, left hip joint. Dressing is dry. Neurological: Cranial nerves II-XII grossly intact, Deep Tendon Reflexes 2+/4 and Symmetrical, Neuro grossly intact Psych/Mental Status: Normal Affect, Appropriate Microbiology Past 72 Hours 04/16/19 Unknown Tissue - Other Gram Stain - Final 04/16/19 Unknown Tissue - Other Wound Culture - Preliminary No growth-Final to follow 04/16/19 Unknown Tissue - Other Gram Stain - Final 04/16/19 Unknown Tissue - Other Wound Culture - Preliminary No growth-Final to follow 04/16/19 Unknown Tissue - Other Gram Stain - Final 04/16/19 Unknown Tissue - Other Wound Culture - Preliminary No growth-Final to follow Laboratory Results 04/18/19 05:31: WBC 7.4, RBC 3.12 L, Hgb 9.2 L, Hct 28.2 L, MCV 90.4, MCH 29.5, MCHC 32.6, RDW Std Deviation 42.3, RDW Coeff of Kwame 13.0, Plt Count 133 L, MPV 10.9 Current Medications Acetaminophen (Tylenol) 1,000 mg PO Q8 [facility] Last Admin: 04/18/19 05:38 Dose: 1,000 mg Documented by: Ascorbic Acid (Vitamin C) 1,000 mg PO BIDCM [facility] Last Admin: 04/18/19 09:32 Dose: 1,000 mg Documented by: Aspirin (Aspirin, Baby) 81 mg PO BID [facility] Last Admin: 04/18/19 09:32 Dose: 81 mg Documented by: Atorvastatin Calcium (Lipitor) 20 mg PO QHS [facility] Last Admin: 04/17/19 21:16 Dose: 20 mg Documented by: Docusate Sodium (Colace) 100 mg PO BID PRN PRN PRN Reason: Constipation Last Admin: 04/18/19 09:32 Dose: 100 mg Documented by: Enteral Nutritional Formula (Ensure Surgery) 237 ml PO TIDCM [facility] Last Admin: 04/18/19 12:18 Dose: 237 ml Documented by: Famotidine (Pepcid) 20 mg PO DAILY [facility] Last Admin: 04/18/19 09:33 Dose: 20 mg Documented by: Lactated Ringer's () 1,000 mls @ 125 mls/hr IV .Q8H [facility] Last Admin: 04/18/19 11:49 Dose: Not Given Documented by: Ceftriaxone Sodium 2 gm/ (Sodium Chloride) 50 mls @ 100 mls/hr IV Q24 [facility] Last Infusion: 04/18/19 10:10 Dose: Infused Documented by: Sodium Chloride () 250 mls @ 15 mls/hr IV .[id number] PRN PRN Reason: Saline Flush Last Infusion: 04/18/19 10:40 Dose: 0 mls/hr Documented by: Sodium Chloride () 250 mls @ 15 mls/hr IV .[id number] PRN PRN Reason: Additional IVPB Infusion Insulin Human Lispro (Humalog Kwikpen ([facility])) 1 - 6 unit SC Q4H PRN PRN; Protocol PRN Reason: BG>/= 180, SEE PROTOCOL Last Admin: 04/16/19 08:05 Dose: 4 units Documented by: Ketorolac Tromethamine (Toradol ([facility])) 15 mg IV Q6H PRN PRN PRN Reason: Pain Score 1-5/10 Last Admin: 04/17/19 15:44 Dose: 15 mg Documented by: Lactobacillus Acidophilus (Acidophilus) 1 tablet PO DAILY [facility] Last Admin: 04/18/19 09:33 Dose: 1 tablet Documented by: Losartan Potassium (Cozaar) 50 mg PO DAILY [facility] Last Admin: 04/18/19 09:32 Dose: 50 mg Documented by: Melatonin (Melatonin) 3 mg PO QHS [facility] Last Admin: 04/17/19 23:33 Dose: 3 mg Documented by: Meloxicam (Mobic) 7.5 mg PO BID [facility] Last Admin: 04/18/19 09:41 Dose: Not Given Documented by: [facility]) [facility] Last Admin: 04/18/19 09:32 Dose: 500 mg Documented by: Morphine Sulfate () 2 - 4 mg IV Q2H PRN PRN PRN Reason: Pain Score 4-10/10 Last Admin: 04/16/19 16:36 Dose: 2 mg Documented by: Niacin (Niaspan) 500 mg PO BID [facility] Last Admin: 04/18/19 09:34 Dose: 500 mg Documented by: Uterf-1-Lgep Ethyl Esters (Lovaza) 2 gm PO DAILY [facility] Last Admin: 04/18/19 09:33 Dose: 2 gm Documented by: Ondansetron HCl (Zofran) 4 mg IV Q8H PRN PRN PRN Reason: NAUSEA Oxycodone HCl (Oxyir) 5 mg PO Q4H PRN PRN PRN Reason: Pain Score 1-10/10 Last Admin: 04/18/19 09:32 Dose: 5 mg Documented by: Promethazine HCl (Phenergan) 12.5 mg IM Q6H PRN PRN; Protocol PRN Reason: NAUSEA/VOMITING Senna/Docusate Sodium (Senokot-S, Cynthia-Colace) 2 tablet PO BID [facility] Last Admin: 04/18/19 09:33 Dose: 2 tablet Documented by: Sodium Chloride () 10 - 40 ml IV UD PRN PRN Reason: SALINE FLUSH Last Admin: 04/18/19 10:40 Dose: 10 ml Documented by: Tizanidine HCl (Zanaflex) 4 mg PO TID PRN PRN PRN Reason: MUSCLE RELAXATION STROKE Vital Signs/Narrative: Vital Signs Temp Pulse Resp BP Pulse Ox 04/18/19 10:41 76 119/60 04/18/19 09:27 98.7 F 81 18 135/70 H 99 Medical Necessity - Tobacco Use Smoking Status: Former smoker Tobacco Use: Non-smoker Assessment/Plan This is a 68-year-old gentleman with history of degenerative arthritis, admitted after elective posterior hip explant and placement of left antibiotic spacer for infective left total hip replacement with an abscess and s inus tract. 1. 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 On IV ceftriaxone as per ID recommendation. Patient grew group G Streptococcus wound culture before. Tissue culture from surgery are sent and pending. Will follow the tissue culture. PICC line ordered. Plan for 6 weeks course of ceftriaxone, stop date 05/28/2019 as per ID. Pain control. On tizanidine. 04/17/2019: Gram stain of tissue culture from 04/16 shows no growth. Follow the culture. No fever or chills. Continue IV ceftriaxone. 04/18/2019: Wound culture does not show growth. Continue IV ceftriaxone. 2. Hypotension with history of hypertension: Blood pressure was low in the morning. 1 L of Ringer lactate was given. Blood pressure recovered. Orthostatic blood pressure was done and is stable, paradoxically blood pressure went up from 107/54 in sitting to 129/64 in standing probably wrong reading : Hypotension is resolved. Losartan 50 mg daily resumed with holding parameters. 3. Diabetes mellitus type 2: Patient is on metformin. Glucose is controlled 122, maximum 177. Continue Accu-Cheks AC measures and cover with blood sliding scale. Accu-Cheks are controlled. Glucose in BMP 150. 4. Dyslipidemia: Patient is on atorvastatin, niacin and omega-3 fatty acid at home. Hold niacin as it can cause vasodilatation, flushing and mild hypotension 5. Other comorbidities include history of degenerative arthritis, multiple orthopedic surgeries: Stable. PT and OT ordered. DVT prophylaxis: On aspirin 81 mg twice daily as per orthopedic surgery recommendation. Discharge planning. Will discuss with vocational case manager. Possible acute inpatient rehab Code Visit Inpatient E&M: 56648 Subs Hosp L2
--- NOTE | 2019-04-18 12:23 | PCM.PN.ORT ---
Subjective: Patient doing well no acute events overnight. Still some lightheadedness otherwise no chest pain or shortness of breath. Hip is comfortable. - Physical Exam Vitals/I&O's: Vital Signs Temp Pulse Resp BP Pulse Ox 98.7 F 76 18 119/60 99 04/18/19 09:27 04/18/19 10:41 04/18/19 09:27 04/18/19 10:41 04/18/19 09:27 Oxygen Flow Rate (L/min) 6 Oxygen Delivery Method Room Air Weight: 197 lb 15.602 oz Body Mass Index (BMI) 30.1 Finger Stick Blood Glucose 120 Intake and Output for Last 24 Hours 04/16/19 04/17/19 04/18/19 23:59 23:59 23:59 Intake Total 4785.08 / 4785.08 5818.57 / 5818.57 1247.75 / 1247.75 Output Total 100 / 100 5275 / 5275 2250 / 2250 Balance 4685.08 / 4685.08 543.57 / 543.57 -1002.25 / -1002.25 General: Alert, Oriented x3, Cooperative Extremities: - - Left lower extremity: Dressing is clean dry and intact Sensations intact to light touch saphenous, sural, superficial peroneal, deep peroneal, and tibial distributions Motors intact EHL, DF, PF calves are soft and supple Medial wound remains adequately healed. Microbiology Past 72 Hours 04/16/19 Unknown Tissue - Other Gram Stain - Final 04/16/19 Unknown Tissue - Other Wound Culture - Preliminary No growth-Final to follow 04/16/19 Unknown Tissue - Other Gram Stain - Final 04/16/19 Unknown Tissue - Other Wound Culture - Preliminary No growth-Final to follow 04/16/19 Unknown Tissue - Other Gram Stain - Final 04/16/19 Unknown Tissue - Other Wound Culture - Preliminary No growth-Final to follow Laboratory Results 04/18/19 05:31: WBC 7.4, RBC 3.12 L, Hgb 9.2 L, Hct 28.2 L, MCV 90.4, MCH 29.5, MCHC 32.6, RDW Std Deviation 42.3, RDW Coeff of Kwame 13.0, Plt Count 133 L, MPV 10.9 Current Medications Acetaminophen (Tylenol) 1,000 mg PO Q8 [facility] Last Admin: 04/18/19 05:38 Dose: 1,000 mg Documented by: Ascorbic Acid (Vitamin C) 1,[facility] Last Admin: 04/18/19 09:32 Dose: 1,000 mg Documented by: Aspirin (Aspirin, Baby) 81 mg PO BID [facility] Last Admin: 04/18/19 09:32 Dose: 81 mg Documented by: Atorvastatin Calcium (Lipitor) 20 mg PO QHS [facility] Last Admin: 04/17/19 21:16 Dose: 20 mg Documented by: Docusate Sodium (Colace) 100 mg PO BID PRN PRN PRN Reason: Constipation Last Admin: 04/18/19 09:32 Dose: 100 mg Documented by: Enteral Nutritional Formula (Ensure Surgery) 237 ml PO TIDCM [facility] Last Admin: 04/18/19 12:18 Dose: 237 ml Documented by: Famotidine (Pepcid) 20 mg PO DAILY [facility] Last Admin: 04/18/19 09:33 Dose: 20 mg Documented by: Lactated Ringer's () 1,000 mls @ 125 mls/hr IV .Q8H [facility] Last Admin: 04/18/19 11:49 Dose: Not Given Documented by: Ceftriaxone Sodium 2 gm/ (Sodium Chloride) 50 mls @ 100 mls/hr IV Q24 [facility] Last Infusion: 04/18/19 10:10 Dose: Infused Documented by: Sodium Chloride () 250 mls @ 15 mls/hr IV .[id number] PRN PRN Reason: Saline Flush Last Infusion: 04/18/19 10:40 Dose: 0 mls/hr Documented by: Sodium Chloride () 250 mls @ 15 mls/hr IV .[id number] PRN PRN Reason: Additional IVPB Infusion Insulin Human Lispro (Humalog Kwikpen ([facility])) 1 - 6 unit SC Q4H PRN PRN; Protocol PRN Reason: BG>/= 180, SEE PROTOCOL Last Admin: 04/16/19 08:05 Dose: 4 units Documented by: Ketorolac Tromethamine (Toradol ([facility])) 15 mg IV Q6H PRN PRN PRN Reason: Pain Score 1-5/10 Last Admin: 04/17/19 15:44 Dose: 15 mg Documented by: Lactobacillus Acidophilus (Acidophilus) 1 tablet PO DAILY [facility] Last Admin: 04/18/19 09:33 Dose: 1 tablet Documented by: Losartan Potassium (Cozaar) 50 mg PO DAILY [facility] Last Admin: 04/18/19 09:32 Dose: 50 mg Documented by: Melatonin (Melatonin) 3 mg PO QHS [facility] Last Admin: 04/17/19 23:33 Dose: 3 mg Documented by: Meloxicam (Mobic) 7.5 mg PO BID [facility] Last Admin: 04/18/19 09:41 Dose: Not Given Documented by: Metformin HCl (Glucophage) 500 mg [facility] Last Admin: 04/18/19 09:32 Dose: 500 mg Documented by: Morphine Sulfate () 2 - 4 mg IV Q2H PRN PRN PRN Reason: Pain Score 4-10/10 Last Admin: 04/16/19 16:36 Dose: 2 mg Documented by: Niacin (Niaspan) 500 mg PO BID [facility] Last Admin: 04/18/19 09:34 Dose: 500 mg Documented by: [id number] Ethyl Esters (Lovaza) 2 gm PO DAILY [facility] Last Admin: 04/18/19 09:33 Dose: 2 gm Documented by: Ondansetron HCl (Zofran) 4 mg IV Q8H PRN PRN PRN Reason: NAUSEA Oxycodone HCl (Oxyir) 5 mg PO Q4H PRN PRN PRN Reason: Pain Score 1-10/10 Last Admin: 04/18/19 09:32 Dose: 5 mg Documented by: Promethazine HCl (Phenergan) 12.5 mg IM Q6H PRN PRN; Protocol PRN Reason: NAUSEA/VOMITING Senna/Docusate Sodium (Senokot-S, Cynthia-Colace) 2 tablet PO BID [facility] Last Admin: 04/18/19 09:33 Dose: 2 tablet Documented by: Sodium Chloride () 10 - 40 ml IV UD PRN PRN Reason: SALINE FLUSH Last Admin: 04/18/19 10:40 Dose: 10 ml Documented by: Tizanidine HCl (Zanaflex) 4 mg PO TID PRN PRN PRN Reason: MUSCLE RELAXATION Medical Necessity - Tobacco Use Smoking Status: Former smoker Tobacco Use: Non-smoker Assessment/Plan Postop day 2 removal of left total hip replacement placement of antibiotic spacer 1. Pain control: Pain currently under control continue with current regimen. Pain medications may be adding to some of his lightheadedness. We discussed this today. We want to minimize use of these. 2. PJI: Previous cultures of leg wound or for group G strep. Patient is done well on cephalosporins. Plan is to continue on cephalosporins as long as there are no additional organisms noted on cultures. 3. DVT prophylaxis: Aspirin 4. Therapy: Toe-touch weightbearing. Hip precautions. 5. Wound: Medial thigh wound remained stable. No drainage. Well-healed at this time. 6. Encourage incentive spirometry 7. Hypotension: Stabilized. Scopolamine patch discontinued. 8. Anemia: Hemoglobin 9.2. Stable due to intraoperative blood loss 9. Disposition: This will be dependent on patient's mobility and antibiotics regimens. Anticipated discharge will be early in the week. Patient is concerned about ability to administer antibiotics at home as well as his mobility. At this time will need to consider potential discharge to fpc facility or transitional care unit. [facility] Office:
--- NOTE | 2019-04-18 12:27 | NURSING ---
scolpalamine patch removed from behind left ear- okay per Dr. Raphael
[2019-04-18 15:41] VITALS: BP 138/75; PULSE 76; RESP 18; TEMP 37.3; O2SAT 98
[2019-04-18] MEDS: tiZANidine HCl 2 MG Tablet 4 MG PO (18:15)
[2019-04-18 20:15] VITALS: BP 103/58; PULSE 74; RESP 18; TEMP 37.2; O2SAT 96
[2019-04-18] MEDS: Atorvastatin Calcium 20 MG Tablet PO (21:51)
[2019-04-18] MEDS: Meloxicam 7.5 MG Tablet PO (21:51)
[2019-04-18] MEDS: MELATONIN 3 MG TABLET PO (21:58)
[2019-04-19 02:15] VITALS: BP 134/72; PULSE 69; RESP 16; TEMP 36.8; O2SAT 97
[2019-04-19] MEDS: Acetaminophen 500 MG Tablet 1000 MG PO (05:38)
--- NOTE | 2019-04-19 07:01 | PN.ORTHO_ITS ---
Subjective: The patient was sitting in bedside chair upon examination. Patient denies any chest pain, shortness of breath, dizziness, lightheadedness, nausea or vomiting, or calf pain. Pain is controlled on medications. No adverse overnight events. Overall patient is doing well. We are currently waiting for placement to the transitional care unit or other prison facility. Case management is involved. Patient's pain is well controlled. Objective: Vital signs stable and afebrile. Patient is able to plantarflex and dorsiflex actively. Sensation is intact to light touch to saphenous, sural, superficial and deep peroneal, and tibial distribution. Dressing is clean dry and intact. Negative Homans bilaterally, negative signs and symptoms of DVT. - Physical Exam Vitals/I&O's: Vital Signs Temp Pulse Resp BP Pulse Ox 98.2 F 69 16 134/72 H 97 04/19/19 02:15 04/19/19 02:15 04/19/19 02:15 04/19/19 02:15 04/19/19 02:15 Oxygen Flow Rate (L/min) 6 Oxygen Delivery Method Room Air Weight: 89.8 kg Body Mass Index (BMI) 30.1 Finger Stick Blood Glucose 120 Intake and Output for Last 24 Hours 04/17/19 04/18/19 04/19/19 23:59 23:59 23:59 Intake Total 5818.57 / 5818.57 1247.75 / 1247.75 750 / 750 Output Total 5275 / 5275 4175 / 4175 1050 / 1050 Balance 543.57 / 543.57 -2927.25 / -2927.25 -300 / -300 General: Alert, Oriented x3, Cooperative, No apparent distress Microbiology Past 72 Hours 04/16/19 Unknown Tissue - Other Gram Stain - Final 04/16/19 Unknown Tissue - Other Wound Culture - Preliminary No growth-Final to follow 04/16/19 Unknown Tissue - Other Gram Stain - Final 04/16/19 Unknown Tissue - Other Wound Culture - Preliminary No growth-Final to follow 04/16/19 Unknown Tissue - Other Gram Stain - Final 04/16/19 Unknown Tissue - Other Wound Culture - Preliminary No growth-Final to follow Laboratory Results 04/19/19 05:40: WBC Pending, RBC Pending, Hgb Pending, Hct Pending, MCV Pending, MCH Pending, MCHC Pending, RDW Std Deviation Pending, RDW Coeff of Kwame Pending, Plt Count Pending Current Medications Acetaminophen (Tylenol) 1,000 mg PO Q8 [facility] Last Admin: 04/19/19 05:38 Dose: 1,000 mg Documented by: Ascorbic Acid (Vitamin C) 1,000 mg PO BIDCM [facility] Last Admin: 04/18/19 18:13 Dose: 1,000 mg Documented by: Aspirin (Aspirin, Baby) 81 mg PO BID [facility] Last Admin: 04/18/19 21:52 Dose: 81 mg Documented by: Atorvastatin Calcium (Lipitor) 20 mg PO QHS [facility] Last Admin: 04/18/19 21:51 Dose: 20 mg Documented by: Docusate Sodium (Colace) 100 mg PO BID PRN PRN PRN Reason: Constipation Last Admin: 04/18/19 09:32 Dose: 100 mg Documented by: Enteral Nutritional Formula (Ensure Surgery) 237 ml PO TIDCM [facility] Last Admin: 04/18/19 18:13 Dose: 237 ml Documented by: Famotidine (Pepcid) 20 mg PO DAILY [facility] Last Admin: 04/18/19 09:33 Dose: 20 mg Documented by: Lactated Ringer's () 1,000 mls @ 125 mls/hr IV .Q8H [facility] Last Admin: 04/19/19 05:37 Dose: Not Given Documented by: Ceftriaxone Sodium 2 gm/ (Sodium Chloride) 50 mls @ 100 mls/hr IV Q24 [facility] Last Infusion: 04/18/19 10:10 Dose: Infused Documented by: Sodium Chloride () 250 mls @ 15 mls/hr IV .[id number] PRN PRN Reason: Saline Flush Last Infusion: 04/18/19 10:40 Dose: 0 mls/hr Documented by: Sodium Chloride () 250 mls @ 15 mls/hr IV .[id number] PRN PRN Reason: Additional IVPB Infusion Insulin Human Lispro (Humalog Kwikpen ([facility])) 1 - 6 unit SC Q4H PRN PRN; Protocol PRN Reason: BG>/= 180, SEE PROTOCOL Last Admin: 04/16/19 08:05 Dose: 4 units Documented by: Ketorolac Tromethamine (Toradol ([facility])) 15 mg IV Q6H PRN PRN PRN Reason: Pain Score 1-5/10 Last Admin: 04/17/19 15:44 Dose: 15 mg Documented by: Lactobacillus Acidophilus (Acidophilus) 1 tablet PO DAILY [facility] Last Admin: 04/18/19 09:33 Dose: 1 tablet Documented by: Losartan Potassium (Cozaar) 50 mg PO DAILY [facility] Last Admin: 04/18/19 09:32 Dose: 50 mg Documented by: Melatonin (Melatonin) 3 mg PO QHS [facility] Last Admin: 04/18/19 21:58 Dose: 3 mg Documented by: Meloxicam (Mobic) 7.5 mg PO BID [facility] Last Admin: 04/18/19 21:51 Dose: 7.5 mg Documented by: [facility] Admin: 04/18/19 18:13 Dose: 500 mg Documented by: Morphine Sulfate () 2 - 4 mg IV Q2H PRN PRN PRN Reason: Pain Score 4-10/10 Last Admin: 04/16/19 16:36 Dose: 2 mg Documented by: Niacin (Niaspan) 500 mg PO BID [facility] Last Admin: 04/18/19 21:52 Dose: 500 mg Documented by: [id number]-8-Fdhd Ethyl Esters (Lovaza) 2 gm PO DAILY [facility] Last Admin: 04/18/19 09:33 Dose: 2 gm Documented by: Ondansetron HCl (Zofran) 4 mg IV Q8H PRN PRN PRN Reason: NAUSEA Oxycodone HCl (Oxyir) 5 mg PO Q4H PRN PRN PRN Reason: Pain Score 1-10/10 Last Admin: 04/18/19 09:32 Dose: 5 mg Documented by: Promethazine HCl (Phenergan) 12.5 mg IM Q6H PRN PRN; Protocol PRN Reason: NAUSEA/VOMITING Senna/Docusate Sodium (Senokot-S, Cynthia-Colace) 2 tablet PO BID [facility] Last Admin: 04/18/19 21:52 Dose: 2 tablet Documented by: Sodium Chloride () 10 - 40 ml IV UD PRN PRN Reason: SALINE FLUSH Last Admin: 04/18/19 10:40 Dose: 10 ml Documented by: Tizanidine HCl (Zanaflex) 4 mg PO TID PRN PRN PRN Reason: MUSCLE RELAXATION Last Admin: 04/18/19 18:15 Dose: 4 mg Documented by: Medical Necessity - Tobacco Use Smoking Status: Former smoker Tobacco Use: Non-smoker Assessment/Plan 1. S/P left hip explant and placement of antibiotic spacer posterior approach POD #3 2. Continue Pain Medications: Tylenol, meloxicam, and OxyIR. We are trying to limit the narcotics. 3. DVT Prophylaxis: Aspirin 81 mg twice daily for 4 weeks postoperatively 4. PT/OT: Toe-touch weightbearing, continue with posterior hip dislocation precautions 5. H & H: Currently pending, patient is asymptomatic and vitals are stable. 6. Encouraged Incentive Spirometry 7. Continue with antibiotics while following cultures: Infectious disease input is appreciated. Patient does have PICC line. Plan will be for 6 weeks IV antibiotics 8. Continue postoperative medical management per medicine 9. Disposition: Plan will be for possible discharge home today to the [facility] care unit at [facility]. This is dependent upon patient's mobility and antibiotic regimen. Patient is concerned about administering antibiotics at home as well as his mobility. Prescriptions will be attached to chart in case discharge is today. Referral is currently being worked on by case management for the TCU. Follow-up per postop instructions. I have reviewed the [place] Automated Rx Reporting System (OARRS) report for this patient for refill pattern and other prescriber involvement as part of the appropriate surveillance for the provision of acute and chronic controlled medications. The report was requested and reviewed on the date of this entry and was considered in the prescribing process.
[2019-04-19 07:05] LABS: Hematocrit 29.1 % (40-54); Hemoglobin 9.5 g/dL (13.0-16.5); Mean Corp Hgb Conc 32.6 g/dL (32-36); Mean Corpuscular Hgb 29.3 pg (27.0-32.0); Mean Corpuscular Volume 89.8 fL (80-94); Mean Platelet Vol. 10.8 fl (6.2-12.0); Platelet Count 146 K/mm3 (150-450); RBC Distribution Width CV 12.8 % (11.6-14.6); RBC Distribution Width SD 42.1 fl (35.1-43.9); Red Blood Count 3.24 M/mm3 (4.6-6.2); White Blood Count 6.8 K/mm3 (4.4-11.0)
--- NOTE | 2019-04-19 07:29 | DS.PCM_ITS ---
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 In December 2017 he was chipping wood when a piece of wood got into his inner thigh. He developed a hematoma with warmth and swelling. Over the year he noticed increased redness and swelling and was seen by his primary care physician. He initially had improvement with antibiotics but once antibiotics stopped the swelling returned as well as the pain. He was referred to a general surgeon in [place] in which he underwent an irrigation debridement of the inner thigh abscess. Patient has had 2 irrigation and debridements of the abscess. Patient was treated with a wound VAC after the irrigation and debridement. He was followed by the local infectious disease physician. Patient had a CT scan which did show a large collection of fluid around his femoral prosthesis in continuity with the draining sinus. After failing conser vative measures, the patient opted to proceed with a removal left total hip arthroplasty with placement of antibiotic spacer. The patient underwent the above-stated procedure on April 16, 2019. Patient did receive perioperative antibiotics. Intraoperatively was uneventful. For details please see dictated operative note. The patient was placed in thigh-high teds, bilateral SCDs, remained stable in recovery. Patient was admitted to the 3rd floor at [facility]. The patient's pain was managed with the use of IV and p.o. pain medications. Infectious disease was consulted for management of the antibiotics. Patient did receive a PICC line to get 6 weeks IV antibiotics. Patient participated in physical therapy. Patient has been toe-touch weightbearing on the left lower extremity with walker as well as following posterior hip dislocation precautions. Patient was discharged on postoperative day #3 to Transitional Care Unit. Patient was given medications stated below. Patient will follow up with [facility] per postop instructions for reassessment. Patient will also be followed by infectious disease for monitoring of the antibiotics. - Physical Exam Vitals/I&O's: Vital Signs Temp Pulse Resp BP Pulse Ox 98.2 F 69 16 134/72 H 97 04/19/19 02:15 04/19/19 02:15 04/19/19 02:15 04/19/19 02:15 04/19/19 02:15 Oxygen Flow Rate (L/min) 6 Oxygen Delivery Method Room Air Weight: 89.8 kg Body Mass Index (BMI) 30.1 Finger Stick Blood Glucose 120 Intake and Output for Last 24 Hours 04/17/19 04/18/19 04/19/19 23:59 23:59 23:59 Intake Total 5818.57 / 5818.57 1247.75 / 1247.75 750 / 750 Output Total 5275 / 5275 4175 / 4175 1050 / 1050 Balance 543.57 / 543.57 -2927.25 / -2927.25 -300 / -300 General: Alert, Oriented x3, Cooperative, No apparent distress Microbiology Past 72 Hours 04/16/19 Unknown Tissue - Other Gram Stain - Final 04/16/19 Unknown Tissue - Other Wound Culture - Preliminary No growth-Final to follow 04/16/19 Unknown Tissue - Other Gram Stain - Final 04/16/19 Unknown Tissue - Other Wound Culture - Preliminary No growth-Final to follow 04/16/19 Unknown Tissue - Other Gram Stain - Final 04/16/19 Unknown Tissue - Other Wound Culture - Preliminary No growth-Final to follow Laboratory Results 04/19/19 05:40: WBC 6.8, RBC 3.24 L, Hgb 9.5 L, Hct 29.1 L, MCV 89.8, MCH 29.3, MCHC 32.6, RDW Std Deviation 42.1, RDW Coeff of Kwame 12.8, Plt Count 146 L, MPV 10.8 Current Medications Acetaminophen (Tylenol) 1,000 mg PO Q8 [facility] Last Admin: 04/19/19 05:38 Dose: 1,000 mg Documented by: Ascorbic Acid (Vitamin C) 1,000 mg PO BIDCM [facility] Last Admin: 04/18/19 18:13 Dose: 1,000 mg Documented by: Aspirin (Aspirin, Baby) 81 mg PO BID [facility] Last Admin: 04/18/19 21:52 Dose: 81 mg Documented by: Atorvastatin Calcium (Lipitor) 20 mg PO QHS [facility] Last Admin: 04/18/19 21:51 Dose: 20 mg Documented by: Docusate Sodium (Colace) 100 mg PO BID PRN PRN PRN Reason: Constipation Last Admin: 04/18/19 09:32 Dose: 100 mg Documented by: Enteral Nutritional Formula (Ensure Surgery) 237 ml PO TIDCM [facility] Last Admin: 04/18/19 18:13 Dose: 237 ml Documented by: Famotidine (Pepcid) 20 mg PO DAILY [facility] Last Admin: 04/18/19 09:33 Dose: 20 mg Documented by: Lactated Ringer's () 1,000 mls @ 125 mls/hr IV .Q8H [facility] Last Admin: 04/19/19 05:37 Dose: Not Given Documented by: Ceftriaxone Sodium 2 gm/ (Sodium Chloride) 50 mls @ 100 mls/hr IV Q24 [facility] Last Infusion: 04/18/19 10:10 Dose: Infused Documented by: Sodium Chloride () 250 mls @ 15 mls/hr IV .[id number] PRN PRN Reason: Saline Flush Last Infusion: 04/18/19 10:40 Dose: 0 mls/hr Documented by: Sodium Chloride () 250 mls @ 15 mls/hr IV .[id number] PRN PRN Reason: Additional IVPB Infusion Insulin Human Lispro (Humalog Kwikpen ([facility])) 1 - 6 unit SC Q4H PRN PRN; Protocol PRN Reason: BG>/= 180, SEE PROTOCOL Last Admin: 04/16/19 08:05 Dose: 4 units Documented by: Ketorolac Tromethamine (Toradol ([facility])) 15 mg IV Q6H PRN PRN PRN Reason: Pain Score 1-5/10 Last Admin: 04/17/19 15:44 Dose: 15 mg Documented by: Lactobacillus Acidophilus (Acidophilus) 1 tablet PO DAILY [facility] Last Admin: 04/18/19 09:33 Dose: 1 tablet Documented by: Losartan Potassium (Cozaar) 50 mg PO DAILY [facility] Last Admin: 04/18/19 09:32 Dose: 50 mg Documented by: Melatonin (Melatonin) 3 mg PO QHS [facility] Last Admin: 04/18/19 21:58 Dose: 3 mg Documented by: Meloxicam (Mobic) 7.5 mg PO BID [facility] Last Admin: 04/18/19 21:51 Dose: 7.5 mg Documented by: [facility] Last Admin: 04/18/19 18:13 Dose: 500 mg Documented by: Morphine Sulfate () 2 - 4 mg IV Q2H PRN PRN PRN Reason: Pain Score 4-10/10 Last Admin: 04/16/19 16:36 Dose: 2 mg Documented by: Niacin (Niaspan) 500 mg PO BID [facility] Last Admin: 04/18/19 21:52 Dose: 500 mg Documented by: Lqivo-4-Ngrx Ethyl Esters (Lovaza) 2 gm PO DAILY [facility] Last Admin: 04/18/19 09:33 Dose: 2 gm Documented by: Ondansetron HCl (Zofran) 4 mg IV Q8H PRN PRN PRN Reason: NAUSEA Oxycodone HCl (Oxyir) 5 mg PO Q4H PRN PRN PRN Reason: Pain Score 1-10/10 Last Admin: 04/18/19 09:32 Dose: 5 mg Documented by: Promethazine HCl (Phenergan) 12.5 mg IM Q6H PRN PRN; Protocol PRN Reason: NAUSEA/VOMITING Senna/Docusate Sodium (Senokot-S, Cynthia-Colace) 2 tablet PO BID [facility] Last Admin: 04/18/19 21:52 Dose: 2 tablet Documented by: Sodium Chloride () 10 - 40 ml IV UD PRN PRN Reason: SALINE FLUSH Last Admin: 04/18/19 10:40 Dose: 10 ml Documented by: Tizanidine HCl (Zanaflex) 4 mg PO TID PRN PRN PRN Reason: MUSCLE RELAXATION Last Admin: 04/18/19 18:15 Dose: 4 mg Documented by: Home Medications: Medications to take at Discharge ascorbic acid (vitamin C) 1,000 mg tablet 1 g PO BID tab 03/15/19 atorvastatin 20 mg tablet 20 mg PO QHS 03/15/19 docusate sodium 100 mg capsule 100 mg PO PRN PRN cap 03/15/19 metformin 500 mg tablet 500 mg PO BID tab 03/15/19 niacin 500 mg tablet 500 mg PO BID 03/15/19 tizanidine 4 mg capsule 4 mg PO PRN PRN cap 03/15/19 L.acidoph,Paracasei, B.lactis [Probiotic] 1 ea PO DAILY 03/22/19 Multivit-Min/FA/Lycopen/Lutein [Centrum Silver Men Tablet] 1 ea PO DAILY 03/22/19 [place]-3 Fatty Acids/Fish Oil [Fish Oil 1,000 mg Capsule] 2 ea PO DAILY 03/22/19 Ceftriaxone 2 gm IV Q24 41 Days #41 vial 04/16/19 Valsartan [Diovan] 160 mg PO DAILY 04/16/19 Acetaminophen [Tylenol] 1,000 mg PO Q8 14 Days tab 04/19/19 Aspirin [Aspirin, Baby] 81 mg PO BID tab.chew 04/19/19 Ferrous Sulfate 325 mg PO DAILY@0800 #30 tab 04/19/19 Meloxicam [Mobic] 7.5 mg PO BID #60 tab 04/19/19 Oxycodone [Oxyir] 5 mg PO Q4H PRN PRN 5 Days #30 tab 04/19/19 Following Prescrptions Were Given to Patient: Ceftriaxone 2 gm IV Q24 41 Days #41 vial Prescription Printed Ferrous Sulfate 325 mg PO DAILY@0800 #30 tab Transmission Status: Received by [facility] [id number] Meloxicam [Mobic] 7.5 mg PO BID #60 tab Prescription Printed Oxycodone [Oxyir] 5 mg PO Q4H PRN PRN 5 Days #30 tab PRN Reason: Pain Score 1-10/10 Prescription Printed Primary Care Physician: Noel Rudd [Primary Care Provider] - Medical Necessity - Tobacco Use Smoking Status: Former smoker Tobacco Use: Non-smoker Meaningful Use Info Meaningful Use Diagnoses (Choose all that apply): None applicable
--- NOTE | 2019-04-19 07:33 | DCINST_ITS ---
Discharge Diet: 1800 Calorie Control Diet Discharge Activity: May Not Drive - while taking narcotic pain medications. May shower in (days): 1 - Dressing must be intact to skin, turn dressing away from water Ice area for (Minutes): 20 - Every 1-2 hours while awake Weight Bearing Status: Toe touch weight bearing - Left lower extremity with walker Elevate: Operative Extremity Additional Activity Instructions:: Wear elastic stockings for 2 weeks. DO NOT use alcohol with narcotic pain medication. DO NOT make important decisions while taking narcotic medication. If you have problems with taking your medication (rash, itching, nausea, etc.) call the office at once. Call your doctor if your incision/area has: Increased Pain/ Swelling, Increased Redness, Foul Smelling Discharge Call your doctor if you observe: Fever of 101 or Higher Remove Dressing in (days):: 2 - Okay to remove dressing on April 21, 2019 Additional Instructions: Follow orthopedic postop instructions Physical therapy: Toe-touch weightbearing with walker on the left lower extremity, continue with posterior hip dislocation precautions. Allergies/Adverse Reactions: Allergies Penicillins Allergy (Verified 04/16/19 07:44) CHILDHOOD ALLERGY PER PATIENT'S MOTHER. PATIENT UNAWARE OF ANY OTHER ALLERGY. WASP STINGS Allergy (Severe, Uncoded 03/22/19 08:14) Anaphylaxis USES EPI PEN Medications to take at Discharge ascorbic acid (vitamin C) 1,000 mg tablet 1 g PO BID tab 03/15/19 atorvastatin 20 mg tablet 20 mg PO QHS 03/15/19 docusate sodium 100 mg capsule 100 mg PO PRN PRN cap 03/15/19 metformin 500 mg tablet 500 mg PO BID tab 03/15/19 niacin 500 mg tablet 500 mg PO BID 03/15/19 tizanidine 4 mg capsule 4 mg PO PRN PRN cap 03/15/19 L.acidoph,Paracasei, B.lactis [Probiotic] 1 ea PO DAILY 03/22/19 Multivit-Min/FA/Lycopen/Lutein [Centrum Silver Men Tablet] 1 ea PO DAILY 03/22/19 [place]-3 Fatty Acids/Fish Oil [Fish Oil 1,000 mg Capsule] 2 ea PO DAILY 03/22/19 Ceftriaxone 2 gm IV Q24 41 Days #41 vial 04/16/19 Valsartan [Diovan] 160 mg PO DAILY 04/16/19 Acetaminophen [Tylenol] 1,000 mg PO Q8 14 Days tab 04/19/19 Aspirin [Aspirin, Baby] 81 mg PO BID tab.chew 04/19/19 Ferrous Sulfate 325 mg PO DAILY@0800 #30 tab 04/19/19 Meloxicam [Mobic] 7.5 mg PO BID #60 tab 04/19/19 Oxycodone [Oxyir] 5 mg PO Q4H PRN PRN 5 Days #30 tab 04/19/19 The following prescriptions were given: Ceftriaxone 2 gm IV Q24 41 Days #41 vial Prescription Printed Ferrous Sulfate 325 mg PO DAILY@0800 #30 tab Transmission Status: Received by [facility] [id number] Meloxicam [Mobic] 7.5 mg PO BID #60 tab Prescription Printed Oxycodone [Oxyir] 5 mg PO Q4H PRN PRN 5 Days #30 tab PRN Reason: Pain Score 1-10/10 Prescription Printed Primary Care Physician: Noel Rudd [Primary Care Provider] - Test Results: Test results from this visit will be discussed in further detail at your follow- up appointment, if applicable. Please Follow Up With: Mariano Estrella MD When: f/u 2 weeks Please Follow Up With: Mitesh Schneider PA-C When: 04/30/19 @ 9:00 am
[2019-04-19 08:45] VITALS: BP 134/72; PULSE 81; RESP 16; TEMP 36.7; O2SAT 99
[2019-04-19] MEDS: metFORMIN HCl 500 MG Tablet PO (09:02)
[2019-04-19] MEDS: Ensure Surgery 237 ML LIQUID PO ×2 (09:02→12:22)
[2019-04-19] MEDS: Aspirin 81 MG TAB.CHEW PO (09:03)
[2019-04-19] MEDS: Ascorbic Acid 500 MG Tablet 1000 MG PO (09:03)
[2019-04-19] MEDS: Losartan Potassium 50 MG Tablet PO (09:04)
[2019-04-19] MEDS: Omega-3 Acid Ethyl Esters 1 GM Capsule 2 GM PO (09:04)
[2019-04-19] MEDS: Senna/Docusate Sodium 1 Tablet 2 TABLET PO (09:05)
[2019-04-19] MEDS: Meloxicam 7.5 MG Tablet PO (09:05)
[2019-04-19] MEDS: Niacin SA 500 MG Tablet PO (09:05)
[2019-04-19] MEDS: Famotidine 20 MG Tablet PO (09:06)
--- NOTE | 2019-04-19 09:32 | CASEMGMT ---
Social Work Note SW received consult for possible TCU placement. SW received call from Marleny with TCU stating TCU is able to accept pt today. SW in to speak with pt. Pt's Rachael present in room. SW introduced self and role at [facility]. Pt is alert and orientated x3. Pt gave this worker permission to speak to him in front of his guest. Pt states I am a little spacey today. Pt confirms that his wishes to discharge to TCU. SW updated pt and Rachael that TCU is able to accept pt as long as pt is medically cleared. Pt states understanding. Plan: TCU today [facility] [employer] W[employer]ICER, [employer]
--- NOTE | 2019-04-19 10:09 | PCM.PN.HOSP ---
Reason for Visit: Left hip explant and antibiotic spacer placement Objective: Patient is hemodynamically stable to be discharged to TCU for subacute rehab. No chest pain or shortness of breath. Vitals/I&O's: Vital Signs Temp Pulse Resp BP Pulse Ox 98.1 F 81 16 134/72 H 99 04/19/19 08:45 04/19/19 08:45 04/19/19 08:45 04/19/19 08:45 04/19/19 08:45 Oxygen Flow Rate (L/min) 6 Oxygen Delivery Method Room Air Weight: 197 lb 15.602 oz Body Mass Index (BMI) 30.1 Finger Stick Blood Glucose 120 Intake and Output for Last 24 Hours 04/17/19 04/18/19 04/19/19 23:59 23:59 23:59 Intake Total 5818.57 / 5818.57 1247.75 / 1247.75 750 / 750 Output Total 5275 / 5275 4175 / 4175 1050 / 1050 Balance 543.57 / 543.57 -2927.25 / -2927.25 -300 / -300 General: Alert, Oriented x3, Cooperative HEENT: Atraumatic, PERRLA, EOMI, Normocephalic Neck: Supple, No JVD, Negative Carotid Bruits Lungs: Clear to auscultation, No rhonchi, No wheeze, No rales, Diminished Cardiovascular: Regular rate, Regular Rhythm, Normal S1, Normal S2, No murmurs Abdomen: Bowel Sounds Present, Soft, Non Tender Extremities: No edema, Capillary Refill Less than 3 Seconds Skin: No rashes, No breakdown Musculoskeletal: No Tenderness to Palpation of Joints or Extremities Neurological: Cranial nerves II-XII grossly intact Psych/Mental Status: Normal Affect, Appropriate Microbiology Past 72 Hours 04/16/19 Unknown Tissue - Other Gram Stain - Final 04/16/19 Unknown Tissue - Other Wound Culture - Preliminary No growth-Final to follow 04/16/19 Unknown Tissue - Other Gram Stain - Final 04/16/19 Unknown Tissue - Other Wound Culture - Preliminary No growth-Final to follow 04/16/19 Unknown Tissue - Other Gram Stain - Final 04/16/19 Unknown Tissue - Other Wound Culture - Preliminary No growth-Final to follow Laboratory Results 04/19/19 05:40: WBC 6.8, RBC 3.24 L, Hgb 9.5 L, Hct 29.1 L, MCV 89.8, MCH 29.3, MCHC 32.6, RDW Std Deviation 42.1, RDW Coeff of Kwame 12.8, Plt Count 146 L, MPV 10.8 Current Medications Acetaminophen (Tylenol) 1,000 mg PO Q8 [facility] Last Admin: 04/19/19 05:38 Dose: 1,000 mg Documented by: Ascorbic Acid (Vitamin C) 1,000 mg PO BIDCM [facility] Last Admin: 04/19/19 09:03 Dose: 1,000 mg Documented by: Aspirin (Aspirin, Baby) 81 mg PO BID [facility] Last Admin: 04/19/19 09:03 Dose: 81 mg Documented by: Atorvastatin Calcium (Lipitor) 20 mg PO QHS [facility] Last Admin: 04/18/19 21:51 Dose: 20 mg Documented by: Docusate Sodium (Colace) 100 mg PO BID PRN PRN PRN Reason: Constipation Last Admin: 04/18/19 09:32 Dose: 100 mg Documented by: Enteral Nutritional Formula (Ensure Surgery) 237 ml PO TIDCM [facility] Last Admin: 04/19/19 09:02 Dose: 237 ml Documented by: Famotidine (Pepcid) 20 mg PO DAILY [facility] Last Admin: 04/19/19 09:06 Dose: 20 mg Documented by: Lactated Ringer's () 1,000 mls @ 125 mls/hr IV .Q8H [facility] Last Admin: 04/19/19 05:37 Dose: Not Given Documented by: Ceftriaxone Sodium 2 gm/ (Sodium Chloride) 50 mls @ 100 mls/hr IV Q24 [facility] Last Infusion: 04/18/19 10:10 Dose: Infused Documented by: Sodium Chloride () 250 mls @ 15 mls/hr IV .[id number] PRN PRN Reason: Saline Flush Last Infusion: 04/18/19 10:40 Dose: 0 mls/hr Documented by: Sodium Chloride () 250 mls @ 15 mls/hr IV .[id number] PRN PRN Reason: Additional IVPB Infusion Insulin Human Lispro (Humalog Kwikpen (Bkc)) 1 - 6 unit SC Q4H PRN PRN; Protocol PRN Reason: BG>/= 180, SEE PROTOCOL Last Admin: 04/16/19 08:05 Dose: 4 units Documented by: Ketorolac Tromethamine (Toradol (Bkc)) 15 mg IV Q6H PRN PRN PRN Reason: Pain Score 1-5/10 Last Admin: 04/17/19 15:44 Dose: 15 mg Documented by: Lactobacillus Acidophilus (Acidophilus) 1 tablet PO DAILY [facility] Last Admin: 04/19/19 09:03 Dose: 1 tablet Documented by: Losartan Potassium (Cozaar) 50 mg PO DAILY [facility] Last Admin: 04/19/19 09:04 Dose: 50 mg Documented by: Melatonin (Melatonin) 3 mg PO QHS [facility] Last Admin: 04/18/19 21:58 Dose: 3 mg Documented by: Meloxicam (Mobic) 7.5 mg PO BID [facility] Last Admin: 04/19/19 09:05 Dose: 7.5 mg Documented by: [facility] Last Admin: 04/19/19 09:02 Dose: 500 mg Documented by: Morphine Sulfate () 2 - 4 mg IV Q2H PRN PRN PRN Reason: Pain Score 4-10/10 Last Admin: 04/16/19 16:36 Dose: 2 mg Documented by: Niacin (Niaspan) 500 mg PO BID [facility] Last Admin: 04/19/19 09:05 Dose: 500 mg Documented by: [id number] Ethyl Esters (Lovaza) 2 gm PO DAILY [facility] Last Admin: 04/19/19 09:04 Dose: 2 gm Documented by: Ondansetron HCl (Zofran) 4 mg IV Q8H PRN PRN PRN Reason: NAUSEA Oxycodone HCl (Oxyir) 5 mg PO Q4H PRN PRN PRN Reason: Pain Score 1-10/10 Last Admin: 04/18/19 09:32 Dose: 5 mg Documented by: Polyethylene Glycol (Miralax) 17 gm PO DAILY [facility] Promethazine HCl (Phenergan) 12.5 mg IM Q6H PRN PRN; Protocol PRN Reason: NAUSEA/VOMITING Senna/Docusate Sodium (Senokot-S, Cynthia-Colace) 2 tablet PO BID [facility] Last Admin: 04/19/19 09:05 Dose: 2 tablet Documented by: Sodium Chloride () 10 - 40 ml IV UD PRN PRN Reason: SALINE FLUSH Last Admin: 04/18/19 10:40 Dose: 10 ml Documented by: Tizanidine HCl (Zanaflex) 4 mg PO TID PRN PRN PRN Reason: MUSCLE RELAXATION Last Admin: 04/18/19 18:15 Dose: 4 mg Documented by: STROKE Vital Signs/Narrative: Vital Signs Temp Pulse Resp BP Pulse Ox 04/19/19 08:45 98.1 F 81 16 134/72 H 99 Medical Necessity - Tobacco Use Smoking Status: Former smoker Tobacco Use: Non-smoker Assessment/Plan This is a 68-year-old gentleman with history of degenerative arthritis, admitted after elective posterior hip explant and placement of left antibiotic spacer for infective left total hip replacement with an abscess and sinus tract. 1. Infected left total hip replacement with abscess and sinus tract status post left hip antibiotic spacer and explant: Patient is being in MedSurg. On IV ceftriaxone as per ID recommendation. Patient grew group G Streptococcus wound culture before. Tissue culture from surgery are sent and pending. Will follow the tissue culture. PICC line ordered. Plan for 6 weeks course of ceftriaxone, stop date 05/28/2019 as per ID. Pain control. On tizanidine. 04/17/2019: Gram stain of tissue culture from 04/16 shows no growth. Follow the culture. No fever or chills. Continue IV ceftriaxone. 04/18/2019: Wound culture does not show growth. Continue IV ceftriaxone. 04/19: Continue antibiotics. 2. Acute anemia secondary to postop blood loss with hypotension with history of hypertension: Blood pressure was low in the morning. 1 L of Ringer lactate was given. Blood pressure recovered. Orthostatic blood pressure was done and is stable, paradoxically blood pressure went up from 107/54 in sitting to 129/64 in standing probably wrong reading 04/18: Hypotension is resolved. Losartan 50 mg daily resumed with holding parameters. 04/19: Blood pressure is stable. H&H is stable between 9 to 10 g%. Patient did not require blood transfusion. Patient is being discharged on ferrous sulfate 325 mg daily. Resume valsartan 3. Diabetes mellitus type 2: Patient is on metformin. Glucose is controlled 122, maximum 177. Continue Accu-Cheks AC measures and cover with blood sliding scale. Accu-Cheks are controlled. Glucose in BMP 150. 4. Dyslipidemia: Patient is on atorvastatin, niacin and omega-3 fatty acid at home. Hold niacin as it can cause vasodilatation, flushing and mild hypotension 5. Other comorbidities include history of degenerative arthritis, multiple orthopedic surgeries: Stable. PT and OT ordered. DVT prophylaxis: On aspirin 81 mg twice daily as per orthopedic surgery recommendation. Discharge planning. Patient getting discharged to TCU. Orthopedics service placed on discharge instruction in summary. Hemodynamically stable to discharge. Microbiology Past 72 Hours 04/16/19 Unknown Tissue - Other Gram Stain - Final 04/16/19 Unknown Tissue - Other Wound Culture - Preliminary No growth-Final to follow 04/16/19 Unknown Tissue - Other Gram Stain - Final 04/16/19 Unknown Tissue - Other Wound Culture - Preliminary No growth-Final to follow 04/16/19 Unknown Tissue - Other Gram Stain - Final 04/16/19 Unknown Tissue - Other Wound Culture - Preliminary No growth-Final to follow Laboratory Results 04/19/19 05:40: WBC 6.8, RBC 3.24 L, Hgb 9.5 L, Hct 29.1 L, MCV 89.8, MCH 29.3, MCHC 32.6, RDW Std Deviation 42.1, RDW Coeff of Kwame 12.8, Plt Count 146 L, MPV 10.8 Code Visit Inpatient E&M: 68411 Subs Hosp L2
[2019-04-19] MEDS: 0.9% Saline Lock 10 ML Syringe IV (10:23)
[2019-04-19] MEDS: Polyethylene Glycol 3350 17 GM PACKET PO (10:23)
--- NOTE | 2019-04-19 11:32 | PCM.PN.ID ---
Subjective: Feeling well, hip sore, no fever, no n/v/d. - Physical Exam Vitals/I&O's: Vital Signs Temp Pulse Resp BP Pulse Ox 98.1 F 81 16 134/72 H 99 04/19/19 08:45 04/19/19 08:45 04/19/19 08:45 04/19/19 08:45 04/19/19 08:45 Oxygen Flow Rate (L/min) 6 Oxygen Delivery Method Room Air Weight: 89.8 kg Body Mass Index (BMI) 30.1 Finger Stick Blood Glucose 120 Intake and Output for Last 24 Hours 04/17/19 04/18/19 04/19/19 23:59 23:59 23:59 Intake Total 5818.57 / 5818.57 1247.75 / 1247.75 750 / 750 Output Total 5275 / 5275 4175 / 4175 1050 / 1050 Balance 543.57 / 543.57 -2927.25 / -2927.25 -300 / -300 General: Alert, No apparent distress Lungs: Clear to auscultation, Normal air movement Cardiovascular: Regular rate, Regular Rhythm Abdomen: Soft, Non Tender, Non-Distended Skin: Incision - L hip Microbiology Past 72 Hours 04/16/19 Unknown Tissue - Other Gram Stain - Final 04/16/19 Unknown Tissue - Other Wound Culture - Final No growth aerobically. 04/16/19 Unknown Tissue - Other Gram Stain - Final 04/16/19 Unknown Tissue - Other Wound Culture - Final No growth aerobically. 04/16/19 Unknown Tissue - Other Gram Stain - Final 04/16/19 Unknown Tissue - Other Wound Culture - Final No growth aerobically. Laboratory Results 04/19/19 05:40: WBC 6.8, RBC 3.24 L, Hgb 9.5 L, Hct 29.1 L, MCV 89.8, MCH 29.3, MCHC 32.6, RDW Std Deviation 42.1, RDW Coeff of Kwame 12.8, Plt Count 146 L, MPV 10.8 Current Medications Acetaminophen (Tylenol) 1,000 mg PO Q8 [facility] Last Admin: 04/19/19 05:38 Dose: 1,000 mg Documented by: Ascorbic Acid (Vitamin C) 1,000 mg PO BIDCM [facility] Last Admin: 04/19/19 09:03 Dose: 1,000 mg Documented by: Aspirin (Aspirin, Baby) 81 mg PO BID [facility] Last Admin: 04/19/19 09:03 Dose: 81 mg Documented by: Atorvastatin Calcium (Lipitor) 20 mg PO QHS [facility] Last Admin: 04/18/19 21:51 Dose: 20 mg Documented by: Docusate Sodium (Colace) 100 mg PO BID PRN PRN PRN Reason: Constipation Last Admin: 04/18/19 09:32 Dose: 100 mg Documented by: Enteral Nutritional Formula (Ensure Surgery) 237 ml PO TIDCM [facility] Last Admin: 04/19/19 09:02 Dose: 237 ml Documented by: Famotidine (Pepcid) 20 mg PO DAILY [facility] Last Admin: 04/19/19 09:06 Dose: 20 mg Documented by: Lactated Ringer's () 1,000 mls @ 125 mls/hr IV .Q8H [facility] Last Admin: 04/19/19 05:37 Dose: Not Given Documented by: Ceftriaxone Sodium 2 gm/ (Sodium Chloride) 50 mls @ 100 mls/hr IV Q24 [facility] Last Admin: 04/19/19 10:23 Dose: 100 mls/hr Documented by: Sodium Chloride () 250 mls @ 15 mls/hr IV .[id number] PRN PRN Reason: Saline Flush Last Infusion: 04/18/19 10:40 Dose: 0 mls/hr Documented by: Sodium Chloride () 250 mls @ 15 mls/hr IV .[id number] PRN PRN Reason: Additional IVPB Infusion Insulin Human Lispro (Humalog Kwikpen (Bk)) 1 - 6 unit SC Q4H PRN PRN; Protocol PRN Reason: BG>/= 180, SEE PROTOCOL Last Admin: 04/16/19 08:05 Dose: 4 units Documented by: Ketorolac Tromethamine (Toradol (Bkc)) 15 mg IV Q6H PRN PRN PRN Reason: Pain Score 1-5/10 Last Admin: 04/17/19 15:44 Dose: 15 mg Documented by: Lactobacillus Acidophilus (Acidophilus) 1 tablet PO DAILY [facility] Last Admin: 04/19/19 09:03 Dose: 1 tablet Documented by: Losartan Potassium (Cozaar) 50 mg PO DAILY [facility] Last Admin: 04/19/19 09:04 Dose: 50 mg Documented by: Melatonin (Melatonin) 3 mg PO QHS [facility] Last Admin: 04/18/19 21:58 Dose: 3 mg Documented by: Meloxicam (Mobic) 7.5 mg PO BID [facility] Last Admin: 04/19/19 09:05 Dose: 7.5 mg Documented by: [facility] Last Admin: 04/19/19 09:02 Dose: 500 mg Documented by: Morphine Sulfate () 2 - 4 mg IV Q2H PRN PRN PRN Reason: Pain Score 4-10/10 Last Admin: 04/16/19 16:36 Dose: 2 mg Documented by: Niacin (Niaspan) 500 mg PO BID [facility] Last Admin: 04/19/19 09:05 Dose: 500 mg Documented by: [id number] Ethyl Esters (Lovaza) 2 gm PO DAILY [facility] Last Admin: 04/19/19 09:04 Dose: 2 gm Documented by: Ondansetron HCl (Zofran) 4 mg IV Q8H PRN PRN PRN Reason: NAUSEA Oxycodone HCl (Oxyir) 5 mg PO Q4H PRN PRN PRN Reason: Pain Score 1-10/10 Last Admin: 04/18/19 09:32 Dose: 5 mg Documented by: Polyethylene Glycol (Miralax) 17 gm PO DAILY [facility] Last Admin: 04/19/19 10:23 Dose: 17 gm Documented by: Promethazine HCl (Phenergan) 12.5 mg IM Q6H PRN PRN; Protocol PRN Reason: NAUSEA/VOMITING Senna/Docusate Sodium (Senokot-S, Cynthia-Colace) 2 tablet PO BID [facility] Last Admin: 04/19/19 09:05 Dose: 2 tablet Documented by: Sodium Chloride () 10 - 40 ml IV UD PRN PRN Reason: SALINE FLUSH Last Admin: 04/19/19 10:23 Dose: 10 ml Documented by: Tizanidine HCl (Zanaflex) 4 mg PO TID PRN PRN PRN Reason: MUSCLE RELAXATION Last Admin: 04/18/19 18:15 Dose: 4 mg Documented by: Medical Necessity - Tobacco Use Smoking Status: Former smoker Tobacco Use: Non-smoker Route of nutrition/ use of supplements: [] Nutritional Intake: [] IV Site: [] Quiros Catheter: [] - Assessment/Plan Antibiotics: [] Assessment/Plan: [] Group G strep L hip PJI - now s/p spacer placement 04/16/[address] Raphael. Wound cx 03/05/19 with group G strep. Surg cx here are neg. Picc is in, plan on 6 week course of ceftriaxone, stop date 05/28/19 with weekly bmp, cbc, and esr. Will follow, d/w renal case manager.
== END 2019-04-19 13:40 | disposition skilled nursing facility (03) | DRG 482 ==
LOC: ACINP 06:56 → MS3 13:42
PROVIDERS: Internal Medicine; Admitting Provider Specialist; Family Provider Family Medicine; PCP Family Medicine; Referring Provider Specialist; Visit Provider Specialist
PROC: 0SRB0EZ Replacement of Left Hip Joint with Articulating Spacer, Open Approach (ICD-10-PCS; CPT 27134; principal; 2019-04-16 09:05)
DX: T84.52XA Infection and inflammatory reaction due to internal left hip prosthesis, initial encounter (principal); I10 Essential (primary) hypertension; E11.9 Type 2 diabetes mellitus without complications; E78.00 Pure hypercholesterolemia, unspecified; Z87.891 Personal history of nicotine dependence; Z79.84 Long term (current) use of oral hypoglycemic drugs; Z79.899 Other long term (current) drug therapy
CPT/HCPCS: 36415; 36569; 73502; 80048; 82962; 83036; 85014; 85018; 85025; 85027; 87015; 87070; 87075; 87081; 87102; 87116; 87205; 87206; 97116; 97163; 97167; 97530; 97535; 99251; C1776; J7050; J7120; A4216; G0463; J0696; J2405; J3260

== ENCOUNTER 2019-04-19 13:45 | Inpatient (IN) | payer MEDICARE, OTHER, SELFPAY ==
[2019-04-16 14:52] VITALS: BMI 30.1
[2019-04-19 14:04] VITALS: BP 146/72; PULSE 76; RESP 18; TEMP 37.3; O2SAT 92
[2019-04-19 14:05] VITALS: BMI 29.8
[2019-04-19 14:16] VITALS: BMI 29.9
[2019-04-19] MEDS: Ascorbic Acid 500 MG Tablet 1000 MG PO (17:19)
[2019-04-19] MEDS: metFORMIN HCl 500 MG Tablet PO (17:19)
[2019-04-19] MEDS: Meloxicam 7.5 MG Tablet PO (17:19)
[2019-04-19] MEDS: Aspirin 81 MG TAB.CHEW PO (17:19)
[2019-04-19] MEDS: Niacin SA 500 MG Tablet PO (17:19)
--- NOTE | 2019-04-19 19:48 | HP.PCM_ITS ---
Problem List (1) Debility Status: Acute (2) Infected prosthesis of left hip Status: Acute (3) Hyperlipidemia Status: Chronic (4) Muscle spasm Status: Chronic (5) Hypertension Status: Chronic (6) Diabetes mellitus type 2 Status: Chronic History of Present Illness Date of Admission: 04/19/19 Chief Complaint: Here for rehabilitation, strengthening, intravenous antibiotics, prior to discharge home with . The patient is a 68 year old Male with below past medical history with followin Left total hip replacement with Dr. Travis Palacios at [facility]. December 2017 Wood injury to left thigh, hematoma. 07/01/2018 Incision & Drainage left thigh abscess, followed by antibiotics. 01/03/2019 Incision & Drainage left thigh abscess, wound VAC. CT left hip showed fluid around femoral prosthesis with draining sinus. Patient with fevers, chills, malaise, left hip pain. Wound culture grew Group G strep. 04/16/2019 Dr. Raphael performed left posterior hip explant and placement left antibiotic spacer. PICC line left upper extremity. Surgical cultures negative to date. Dr. Estrella recommended 6 weeks of IV Ceftriaxone for Group G strep infection thru 05/28/2019. 04/19/2019 Admit to TCU with debility, here for rehabilitation, strengthening, intravenous antibiotics, prior to discharge home with . 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 PATIENT UNAWARE OF ANY OTHER ALLERGY. WASP STINGS Allergy (Severe, Uncoded 03/22/19 08:14) Anaphylaxis USES EPI PEN Home Medications: Ambulatory Orders Medication Instructions Recorded ascorbic acid (vitamin C) 1,000 mg 1 g PO BID tab 03/15/19 tablet atorvastatin 20 mg tablet 20 mg PO QHS 03/15/19 docusate sodium 100 mg capsule 100 mg PO PRN PRN cap 03/15/19 metformin 500 mg tablet 500 mg PO BID tab 03/15/19 niacin 500 mg tablet 500 mg PO BID 03/15/19 tizanidine 4 mg capsule 4 mg PO PRN PRN cap 03/15/19 L.acidoph,Paracasei, B.lactis 1 ea PO DAILY 03/22/19 [Probiotic] Multivit-Min/FA/Lycopen/Lutein 1 ea PO DAILY 03/22/19 [Centrum Silver Men Tablet] [place]-3 Fatty Acids/Fish Oil [Fish 2 ea PO DAILY 03/22/19 Oil 1,000 mg Capsule] Valsartan [Diovan] 160 mg PO DAILY 04/16/19 Acetaminophen [Tylenol] 1,000 mg PO Q8 04/19/19 Aspirin [Aspirin, Baby] 81 mg PO BID 04/19/19 Ceftriaxone 2 gm IV Q24 04/19/19 Ferrous Sulfate 325 mg PO DAILY@0800 04/19/19 Meloxicam [Mobic] 7.5 mg PO BID 04/19/19 Oxycodone [Oxyir] 5 mg PO Q4H PRN PRN 5 Days #30 tab 04/19/19 Surgical History: Surgical History (Last Reviewed 03/17/19 @ 18:13 by Chavo Alcala MD) History of carpal tunnel surgery Z98.890 History of elbow surgery Z98.890 History of epidermal inclusion cyst excision Z98.890, Z87.2 2 CLEAN OUTS OF CYST ON LEFT LEG History of shoulder replacement Z96.619 History of total left hip replacement Z96.642 Surgical History: adenoidectomy, total hip arthroplasty - Left., tonsillectomy, - - Left knee meniscus surgery, left elbow 1/2 Jose Chandra surgery, left total shoulder replacement, carpal tunnel surgery, left posterior hip explant with placement left hip antibiotic spacer. Psychiatric History: No pertinent psych hx Lives: Spouse/ Significant Other Smoking Status: Former smoker Tobacco Use: Cigarettes Alcohol: None Drugs: None - *Family History Paternal Family History: Family History (Last Reviewed 03/17/19 @ 18:13 by Chavo Alcala MD) Other Arthritis High cholesterol Hypertension Thyroid disorder History Items: - - Degenerative arthritis and had hip surgeries. Review of Systems Constitutional: Denies: Chills, Fever, Weight Change HEENT: Denies: Head Aches, Sinus Congestion, Sinus Drainage Cardiovascular: Denies: Chest Pain, Palpitations Respiratory: Denies: Cough, Shortness of breath at rest, Sputum production Gastrointestinal: Denies: Abdominal Pain, Nausea, Vomiting Genitourinary: Denies: Dysuria Musculoskeletal: Denies: Joint Pain, Joint Tenderness Skin: Denies: Rash, Wounds Neurological: Denies: Numbness, Tingling, Focal weakness Psychiatric: Denies: Anxiety, Depression, Homicidal Ideations, Suicidal Ideations Hematologic/ Lymphatic: Denies: Easy Bruising, Easy Bleeding VTE Information - Inpt Only VTE Present on Admission: No VTE Mechan Device Prophylaxis: Knee High ALEXANDRA Hose VTE Pharm Prophylaxis ordered?: Yes Patient Problems: Active and Suspected Problems (Last Reviewed 03/17/19 @ 18:13 by Chavo Alcala MD) Debility (Acute) Infected prosthesis of left hip (Acute) - Physical Exam Vitals/I&O's: Vital Signs Temp Pulse Resp BP Pulse Ox 99.2 F H 76 18 146/72 H 92 04/19/19 14:04 04/19/19 14:04 04/19/19 14:04 04/19/19 14:04 04/19/19 14:04 Oxygen Delivery Method Room Air Weight: 89.1 kg Body Mass Index (BMI) 29.8 Finger Stick Blood Glucose 120 Intake and Output for Last 24 Hours 04/17/19 04/18/19 04/19/19 23:59 23:59 23:59 Intake Total 240 / 240 Balance 240 / 240 General: Alert, Oriented x3, Cooperative HEENT: Atraumatic, PERRLA, EOMI, Normocephalic Neck: Supple, No JVD, Negative Carotid Bruits Lungs: Clear to auscultation, Normal air movement Cardiovascular: Regular rate, No murmurs Abdomen: Bowel Sounds Present, Soft, Non Tender Extremities: No edema, Capillary Refill Less than 3 Seconds, - - Left upper extremity PICC line. Skin: No rashes, No breakdown Musculoskeletal: No Tenderness to Palpation of Joints or Extremities Neurological: Cranial nerves II-XII grossly intact Psych/Mental Status: Normal Affect, Appropriate Current Medications Acetaminophen (Tylenol) 1,000 mg PO Q8 [facility] Ascorbic Acid (Vitamin C) 1,000 mg PO BID [facility] Last Admin: 04/19/19 17:19 Dose: 1,000 mg Documented by: Aspirin (Aspirin, Baby) [facility] Stop: 05/17/19 08:01 Last Admin: 04/19/19 17:19 Dose: 81 mg Documented by: Atorvastatin Calcium (Lipitor) 20 mg PO QHS [facility] Docusate Sodium (Colace) 100 mg PO BID PRN PRN PRN Reason: Constipation Ferrous Sulfate (Ferrous Sulfate) 325 mg PO DAILY@0800 [facility] Heparin Sodium (Beef Lung) () 50 units IV UD PRN PRN Reason: PICC Line Heparin Flush Heparin Sodium (Beef Lung) () 50 units IV UD PRN PRN Reason: PICC Line Heparin Flush Ceftriaxone Sodium 2 gm/ (Sodium Chloride) 50 mls @ 100 mls/hr IV Q24 [facility] Stop: 05/28/19 11:00 Lactobacillus Acidophilus (Acidophilus) 1 tablet PO DAILY [facility] Melatonin (Melatonin) 10 mg PO QHS [facility] Meloxicam (Mobic) 7.5 mg PO BID [facility] Last Admin: 04/19/19 17:19 Dose: 7.5 mg Documented by: Metformin HCl (Glucophage) [facility] Last Admin: 04/19/19 17:19 Dose: 500 mg Documented by: Multivitamins/Minerals (Multivitamin With Minerals (Bkc)) 1 [facility] Niacin (Niaspan) 500 mg PO BID [facility] Last Admin: 04/19/19 17:19 Dose: 500 mg Documented by: [id number] Ethyl Esters (Lovaza) 2 gm PO DAILY [facility] Oxycodone HCl (Oxyir) 5 mg PO Q4H PRN PRN PRN Reason: Pain Score 1-10/10 Sodium Chloride () 10 - 40 ml IV UD PRN PRN Reason: Open End PICC Flush Sodium Chloride (0.9% Nacl (Sterile) Posiflush) 10 - 40 ml IV UD PRN PRN Reason: Port access or dressing change Sodium Chloride () 10 - 40 ml IV UD PRN PRN Reason: Open End PICC Flush Sodium Chloride (0.9% Nacl (Sterile) Posiflush) 10 - 40 ml IV UD PRN PRN Reason: Port access or dressing change Tizanidine HCl (Zanaflex) 4 mg PO TID PRN PRN PRN Reason: MUSCLE RELAXATION Tuberculin PPD (Tubersol, Aplisol, Ppd) 5 tu ID X1 ONE Stop: 04/20/19 10:01 Tuberculin PPD (Tubersol, Aplisol, Ppd) 5 tu ID X1 ONE Stop: 04/27/19 10:01 Valsartan (Diovan) 160 mg PO DAILY [facility] Assessment/Plan All Active Problems (Last Reviewed 03/17/19 @ 18:13 by Chavo Alcala MD) Debility (Acute) Infected prosthesis of left hip (Acute) 68 year old male with below past medical history hospitalized for left prosthetic hip infection, underwent left posterior hip explant with placement of antibiotic spacer 04/16/[address] Raphael, admitted to TCU with debility, here for rehabilitation, strengthening, intravenous antibiotics, prior to discharge home with . * Debility - PT/OT. * Pain - Tylenol 1000MG Q8H, Oxycodone 5MG Q4H PRN pain (1-10). * Bowel - Miralax 17GM daily, Senna/colace 2 tablets BID, Dulcolax 10MG daily PRN. * Adult immunization - Administer Prevnar 13, Pneumovax 23, Fluzone as appropriate. * DVT prophylaxis - Aspirin 81MG BID thru 05/17/2019. * Vitamin C deficiency - Vitamin C 1000MG BID. * Hyperlipidemia - Atorvastatin 20MG QHS, Niaspan 500MG BID, Lovaza 2GM daily. * Infected left prosthetic hip status post explant with antibiotic spacer placement - Ceftriaxone 2GM IV Q24H thru 05/28/2019, Dr. Estrella, Dr. Raphael following. * Iron deficiency - Ferrous Sulfate 325MG daily. * GI prophylaxis - Lactobacillus 1 tablet daily. * Insomnia - Melatonin 10MG QHS. * Osteoarthritis - Meloxicam 7.5MG twice daily. * Diabetes Mellitus II - Metformin 500MG BID, monitor blood sugars. * Nutrition - MVI daily. * Muscle spasm - Tizanidine 4MG TID PRN. * Hypertension - Valsartan 160MG daily.
[2019-04-19] MEDS: Atorvastatin Calcium 20 MG Tablet PO (22:12)
[2019-04-19] MEDS: Acetaminophen 500 MG Tablet 1000 MG PO (22:12)
[2019-04-19] MEDS: MELATONIN 10 MG TABLET PO (22:22)
[2019-04-19] MEDS: 0.9% Saline Lock 10 ML Syringe IV (22:23)
[2019-04-20] MEDS: Acetaminophen 500 MG Tablet 1000 MG PO ×3 (05:29→22:32)
[2019-04-20] MEDS: Omega-3 Acid Ethyl Esters 1 GM Capsule 2 GM PO (05:29)
[2019-04-20] MEDS: Ascorbic Acid 500 MG Tablet 1000 MG PO ×2 (05:29→16:47)
[2019-04-20] MEDS: Niacin SA 500 MG Tablet PO ×2 (05:29→16:46)
[2019-04-20] MEDS: Meloxicam 7.5 MG Tablet PO ×2 (05:29→16:46)
[2019-04-20] MEDS: Senna/Docusate Sodium 1 Tablet 2 TABLET PO ×2 (05:33→16:46)
[2019-04-20] MEDS: Polyethylene Glycol 3350 17 GM PACKET PO (05:34)
[2019-04-20 05:43] LABS: Absolute Lymphocyte Count 1.69 X10^3/uL (0.83-4.51); Absolute Neutrophil Count 3.3 X10^3/uL (2.0-7.7); Basophil# 0.01 X10^3/uL; Basophil% 0.2 % (0-1); Eosinophil# 0.27 X10^3/uL; Eosinophils% 4.6 % (0-5); Hematocrit 27.6 % (40-54); Lymphocyte # 1.69 X10^3/ul (4.0); Lymphocyte % 29.1 % (19-41); Mean Corp Hgb Conc 32.6 g/dL (32-36); Mean Platelet Vol. 10.2 fl (6.2-12.0); Monocyte# 0.51 X10^3/uL; Monocyte% 8.8 % (0-10); NRBC Flagged by Analyzer 0 % (0-5); Neutrophil # 3.31 X10^3/uL (2.7-7.7); Platelet Count 152 K/mm3 (150-450); RBC Distribution Width CV 13.2 % (11.6-14.6); RBC Distribution Width SD 42.7 fl (35.1-43.9); White Blood Count 5.8 K/mm3 (4.4-11.0)
--- NOTE | 2019-04-20 05:50 | NURSING ---
Pt requesting information about possible D/C today or within the next couple of days. Pt stating he has been in other nursing homes and he just does not want to be here. Pt stating numerous times he is not a people person and their is to many people here. This nurse asked pt if there was anything that staff could do to help his stay be more welcoming. Pt denied stating that the staff is wonderful here he just wants to go home to his own house. This nurse informed pt that the social research assistant could be contacted. Pt stated he would like the social research assistant to come see him today. Pt thanked this numerous times. Pt resting in bed, polar care on and call light in reach.
[2019-04-20 05:52] LABS: Anion Gap 6 (5-15); BUN 13 mg/dL (7-18); BUN/Creat Ratio 15.8 RATIO (10-20); Chloride 99 mmol/L (98-107); Creatinine, Serum 0.82 mg/dL (0.70-1.30); EST Glomerular Filtration Rate 99 mL/min (>60); Est Glom Filt Rate - Afr Amer 119 mL/min (>60); Estimated Creatinine Clearance 82.26 ml/min; Glucose 175 mg/dL (74-106); Potassium 4.2 mmol/L (3.5-5.1); Sodium Level 135 mmol/L (136-145)
[2019-04-20 06:02] LABS: Erythrocyte Sedimentation Rate 32 mm/hr (0-20)
[2019-04-20 06:11] LABS: Bedside Glucose 125 mg/dL (70-110)
[2019-04-20] MEDS: Aspirin 81 MG TAB.CHEW PO ×2 (07:51→16:47)
[2019-04-20] MEDS: Ferrous Sulfate 325 MG Tablet PO (07:51)
[2019-04-20] MEDS: Multivitamins,Ther W-Minerals Tablet 1 TABLET PO (07:51)
[2019-04-20] MEDS: metFORMIN HCl 500 MG Tablet PO ×2 (07:51→16:46)
--- NOTE | 2019-04-20 10:47 | PCM.PN.ID ---
Patient Problems: Active and Suspected Problems (Last Reviewed 03/17/19 @ 18:13 by Chavo Alcala MD) Debility (Acute) Infected prosthesis of left hip (Acute) Subjective: Feeling well, working with PT, wants to go home. No fever. - Physical Exam Vitals/I&O's: Vital Signs Temp Pulse Resp BP Pulse Ox 99.2 F H 76 18 146/72 H 92 04/19/19 14:04 04/19/19 14:04 04/19/19 14:04 04/19/19 14:04 04/19/19 14:04 Oxygen Delivery Method Room Air Weight: 88.932 kg Body Mass Index (BMI) 29.8 Finger Stick Blood Glucose 120 Intake and Output for Last 24 Hours 04/18/19 04/19/19 04/20/19 23:59 23:59 23:59 Intake Total 240 / 240 120 / 120 Balance 240 / 240 120 / 120 General: Alert, Cooperative, No apparent distress Lungs: Clear to auscultation, Normal air movement Cardiovascular: Regular rate, Regular Rhythm Abdomen: Soft, Non Tender, Non-Distended Skin: Incision - L hip Laboratory Results 04/20/19 05:25: WBC 5.8, RBC 3.10 L, Hgb 9.0 L, Hct 27.6 L, MCV 89.0, MCH 29.0, MCHC 32.6, RDW Std Deviation 42.7, RDW Coeff of Kwame 13.2, Plt Count 152, MPV 10.2, Immature Gran % (Auto) 0.300, Neut % (Auto) 57.0, Lymph % (Auto) 29.1, [place] % (Auto) 8.8, Eos % (Auto) 4.6, Baso % (Auto) 0.2, Absolute Neuts (auto) 3.3, Absolute Lymphs (auto) 1.69, Nucleated RBC % 0, ESR 32 H 04/20/19 05:25: Sodium 135 L, Potassium 4.2, Chloride 99, Carbon Dioxide 30.0, Anion Gap 6, BUN 13, Creatinine 0.82, Estim Creat Clear Calc 82.26, Est GFR (MDRD) Af Amer 119, Est GFR (MDRD) Non-Af 99, BUN/Creatinine Ratio 15.8, Glucose 175 H, Calcium 9.0 04/20/19 06:06: POC Glucose 125 H Current Medications Acetaminophen (Tylenol) 1,000 mg PO Q8 REPLACED BY [facility] Last Admin: 04/20/19 05:29 Dose: 1,000 mg Documented by: Ascorbic Acid (Vitamin C) 1,000 mg PO BID REPLACED BY [facility] Last Admin: 04/20/19 05:29 Dose: 1,000 mg Documented by: Aspirin (Aspirin, Baby) [facility] Stop: 05/17/19 08:01 Last Admin: 04/20/19 07:51 Dose: 81 mg Documented by: Atorvastatin Calcium (Lipitor) 20 mg PO QHS REPLACED BY [facility] Last Admin: 04/19/19 22:12 Dose: 20 mg Documented by: Bisacodyl (Dulcolax) 10 mg PO DAILY PRN PRN Reason: Constipation Ferrous Sulfate (Ferrous Sulfate) 325 mg PO DAILY@0800 REPLACED BY [facility] Last Admin: 04/20/19 07:51 Dose: 325 mg Documented by: Heparin Sodium (Beef Lung) () 50 units IV UD PRN PRN Reason: PICC Line Heparin Flush Heparin Sodium (Beef Lung) () 50 units IV UD PRN PRN Reason: PICC Line Heparin Flush Ceftriaxone Sodium 2 gm/ (Sodium Chloride) 50 mls @ 100 mls/hr IV Q24 REPLACED BY [facility] Stop: 05/28/19 11:00 Lactobacillus Acidophilus (Acidophilus) 1 tablet PO DAILY REPLACED BY [facility] Last Admin: 04/20/19 05:29 Dose: 1 tablet Documented by: Melatonin (Melatonin) 10 mg PO QHS REPLACED BY [facility] Last Admin: 04/19/19 22:22 Dose: 10 mg Documented by: Meloxicam (Mobic) 7.5 mg PO BID REPLACED BY [facility] Last Admin: 04/20/19 05:29 Dose: 7.5 mg Documented by: Metformin HCl (Glucophage) [facility] Last Admin: 04/20/19 07:51 Dose: 500 mg Documented by: Multivitamins/Minerals (Multivitamin With Minerals (Bkc)) 1 tablet PO [facility]ILY[facility] Last Admin: 04/20/19 07:51 Dose: 1 tablet Documented by: Niacin (Niaspan) 500 mg PO BID REPLACED BY [facility] Last Admin: 04/20/19 05:29 Dose: 500 mg Documented by: [id number] Ethyl Esters (Lovaza) 2 gm PO DAILY REPLACED BY [facility] Last Admin: 04/20/19 05:29 Dose: 2 gm Documented by: Oxycodone HCl (Oxyir) 5 mg PO Q4H PRN PRN PRN Reason: Pain Score 1-10/10 Polyethylene Glycol (Miralax) 17 gm PO DAILY REPLACED BY [facility] Last Admin: 04/20/19 05:34 Dose: 17 gm Documented by: Senna/Docusate Sodium (Senokot-S, Cynthia-Colace) 2 tablet PO BID REPLACED BY [facility] Last Admin: 04/20/19 05:33 Dose: 2 tablet Documented by: Sodium Chloride () 10 - 40 ml IV UD PRN PRN Reason: Open End PICC Flush Last Admin: 04/19/19 22:23 Dose: 10 ml Documented by: Sodium Chloride (0.9% Nacl (Sterile) Posiflush) 10 - 40 ml IV UD PRN PRN Reason: Port access or dressing change Sodium Chloride () 10 - 40 ml IV UD PRN PRN Reason: Open End PICC Flush Sodium Chloride (0.9% Nacl (Sterile) Posiflush) 10 - 40 ml IV UD PRN PRN Reason: Port access or dressing change Tizanidine HCl (Zanaflex) 4 mg PO TID PRN PRN PRN Reason: MUSCLE RELAXATION Tuberculin PPD (Tubersol, Aplisol, Ppd) 5 tu ID X1 ONE Stop: 04/27/19 10:01 Valsartan (Diovan) 160 mg PO DAILY REPLACED BY [facility] Last Admin: 04/20/19 05:29 Dose: 160 mg Documented by: Medical Necessity - Tobacco Use Smoking Status: Former smoker Tobacco Use: Cigarettes Route of nutrition/ use of supplements: [] Nutritional Intake: [] IV Site: [] Quiros Catheter: [] - Assessment/Plan Antibiotics: [] Assessment/Plan: [] Active and Suspected Problems (Last Reviewed 03/17/19 @ 18:13 by Chavo Alcala MD) Debility (Acute) 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 Raphael. Wound cx 03/05/19 with group G strep. Surg cx here are neg. Picc is in, plan on 6 week course of ceftriaxone, stop date 05/28/19 with weekly bmp, cbc, and esr. He is ok to go home on iv abx if he is safe to return home and is able to get his medication. Wrote rx. ID followup with me in 2 weeks if he leaves. Will follow, d/w gearcase assembler.
--- NOTE | 2019-04-20 12:02 | CASEMGMT ---
Social Work Met with pt about DC plans. Pt requesting to DC home 04/21. Expalined NOT not to cover IV ATB with [facility]. Pt on IV ATB Q24 agreeable to receive transfusion 04/21-05/27 with [facility] infusion center- will drive, or [facility] van- resources given to pt. Contacted infusion center to discuss payment options through insurance, explained primary would cover 80% and patient would self-pay/secondary insurance to cover 20%. Pt referred to [facility] for PT. Pt requesting FWW and w/c, explained insurance, pt will decide which he wants. Plan: DC 04/21, IV ATB [facility]:04/21-05/27, OP therapy: [facility] in [place], DME: FWW or w/c Daniella Shaffer, social work internal audit senior manager Merry Figueredo, [employer] ARCHITECT [employer] LEADER
[2019-04-20 14:27] VITALS: BP 153/78; PULSE 74; RESP 18; TEMP 36.7; O2SAT 97
--- NOTE | 2019-04-20 14:48 | PHA.CONS_ITS ---
<DelmyClaribel - Last Filed: 04/20/19 14:48> Progress Note - Pharmacy Subjective: TCU Admission Objective: Allergies Penicillins Allergy (Verified 04/16/19 07:44) CHILDHOOD ALLERGY PER PATIENT'S MOTHER. PATIENT UNAWARE OF ANY OTHER ALLERGY. WASP STINGS Allergy (Severe, Uncoded 03/22/19 08:14) Anaphylaxis USES EPI PEN Current Medications Generic Name Dose Route Start Last Admin Trade Name Freq PRN Reason Stop Dose Admin Acetaminophen 1,000 mg 04/19/19 22:00 04/20/19 14:00 Tylenol PO 1,000 mg Q8 FADI Administration Ascorbic Acid 1,000 mg 04/19/19 18:00 04/20/19 05:29 Vitamin C PO 1,000 mg BID FADI Administration Aspirin 81 mg 04/19/19 17:00 04/20/19 07:51 Aspirin, Baby PO 05/17/19 08:01 81 mg BIDCM FADI Administration Atorvastatin Calcium 20 mg 04/19/19 22:00 04/19/19 22:12 Lipitor PO 20 mg QHS FADI Administration Bisacodyl 10 mg 04/19/19 20:05 Dulcolax PO DAILY PRN Constipation Ferrous Sulfate 325 mg 04/20/19 08:00 04/20/19 07:51 Ferrous Sulfate PO 325 mg DAILY@0800 FADI Administration Heparin Sodium (Beef Lung) 50 units 04/19/19 14:23 IV UD PRN PICC Line Heparin Flush Heparin Sodium (Beef Lung) 50 units 04/19/19 17:31 IV UD PRN PICC Line Heparin Flush Ceftriaxone Sodium 2 gm/ 50 mls @ 100 mls/hr 04/20/19 10:00 04/20/19 10:53 Sodium Chloride IV 05/28/19 11:00 100 mls/hr Q24 FADI Administration Lactobacillus Acidophilus 1 tablet 04/20/19 06:00 04/20/19 05:29 Acidophilus PO 1 tablet DAILY FADI Administration Melatonin 10 mg 04/19/19 22:00 04/19/19 22:22 Melatonin PO 10 mg QHS FADI Administration Meloxicam 7.5 mg 04/19/19 18:00 04/20/19 05:29 Mobic PO 7.5 mg BID FADI Administration Metformin HCl 500 mg 04/19/19 17:00 04/20/19 07:51 Glucophage PO 500 mg BIDCM FADI Administration Multivitamins/Minerals 1 tablet 04/20/19 08:00 04/20/19 07:51 Multivitamin With Minerals (Bkc) PO 1 tablet DAILYCM FADI Administration Niacin 500 mg 04/19/19 18:00 04/20/19 05:29 Niaspan PO 500 mg BID FADI Administration Jiosa-8-Hlvd Ethyl Esters 2 gm 04/20/19 06:00 04/20/19 05:29 Lovaza PO 2 gm DAILY FADI Administration Oxycodone HCl 5 mg 04/19/19 14:11 Oxyir PO Q4H PRN PRN Pain Score 1-10 Polyethylene Glycol 17 gm 04/20/19 06:00 04/20/19 05:34 Miralax PO 17 gm DAILY FADI Administration Senna/Docusate Sodium 2 tablet 04/20/19 06:00 04/20/19 05:33 Senokot-S, Cynthia-Colace PO 2 tablet BID FADI Administration Sodium Chloride 10 - 40 ml 04/19/19 14:23 04/19/19 22:23 IV 10 ml UD PRN Administration Open End PICC Flush Sodium Chloride 10 - 40 ml 04/19/19 14:23 0.9% Nacl (Sterile) Posiflush IV UD PRN Port access or dressing change Sodium Chloride 10 - 40 ml 04/19/19 17:31 IV UD PRN Open End PICC Flush Sodium Chloride 10 - 40 ml 04/19/19 17:31 0.9% Nacl (Sterile) Posiflush IV UD PRN Port access or dressing change Tizanidine HCl 4 mg 04/19/19 15:22 Zanaflex PO TID PRN PRN MUSCLE RELAXATION Tuberculin PPD 5 tu 04/27/19 10:00 Tubersol, Aplisol, Ppd ID 04/27/19 10:01 X1 ONE Valsartan 160 mg 04/20/19 06:00 04/20/19 05:29 Diovan PO 160 mg DAILY FADI Administration Problem List (Last Reviewed 03/17/19 @ 18:13 by Chavo Alcala MD) Debility (Acute) Infected prosthesis of left hip (Acute) Hyperlipidemia (Chronic) Muscle spasm (Chronic) Vital Signs Temp Pulse Resp BP Pulse Ox 98.0 F 74 18 153/78 H 97 04/20/19 14:27 04/20/19 14:27 04/20/19 14:27 04/20/19 14:27 04/20/19 14:27 Oxygen Delivery Method Room Air Weight: 88.932 kg Body Mass Index (BMI) 29.8 Finger Stick Blood Glucose 120 Sodium 135 mmol/L (136-145) L 04/20/19 05:25 Potassium 4.2 mmol/L (3.5-5.1) 04/20/19 05:25 Chloride 99 mmol/L (98-107) 04/20/19 05:25 Carbon Dioxide 30.0 mmol/L (21.0-32.0) 04/20/19 05:25 Anion Gap 6 (5-15) 04/20/19 05:25 BUN 13 mg/dL (7-18) 04/20/19 05:25 Creatinine 0.82 mg/dL (0.70-1.30) 04/20/19 05:25 Est GFR (MDRD) Af Amer 119 mL/min (>60) 04/20/19 05:25 Est GFR (MDRD) Non-Af 99 mL/min (>60) 04/20/19 05:25 BUN/Creatinine Ratio 15.8 RATIO (10-20) 04/20/19 05:25 Glucose 175 mg/dL (74-106) H 04/20/19 05:25 Assessment/Plan: 1. Pain: acetaminophen 1000mg PO Q8H and oxycodone 5mg PO Q4H PRN pain (1- 1010). Please continue to monitor for increased pain and PRN usage. 2. Infected L prosthetic hip s/p explant with antibiotic spacer: ceftriaxone 2g IV Q24 thru 05/28/2019. Please continue to monitor for S/S of infection and diarrhea. 3. DVT prophylaxis: aspirin 81mg PO BIDCM thru 05/17/2019. Please continue to monitor for S/S of bleeding/DVT. *4. Hyperlipidemia: atorvastatin 20mg PO QHS, niacin 500mg PO BID, Lovaza 2gm PO daily. I did not see a lipid panel in the patient's chart. Please consider ordering one now and then annually as clinically appropriate. Thanks. Please continue to monitor for muscle pain. 5. Diabetes mellitus type II: metformin 500mg PO BIDCM. Please continue to monitor renal function, S/S of hypo/hyperglycemia and blood glucose readings. Recent hemoglobin A1c in chart. 6. Iron deficiency: ferrous sulfate 325mg PO daily. Please continue to monitor hemoglobin and for dark, tarry stools. 7. Osteoarthritis: meloxicam 7.5mg PO BID. Please continue to monitor renal function and for S/S of GI bleeding. 8. Hypertension: valsartan 160mg PO daily. Please continue to monitor blood pressure and renal function. 9. Muscle spasm: tizanidine 4mg PO TID PRN muscle relaxation. Please continue to monitor for muscle spasms 10. GI prophylaxis: lactobacillus 1T PO daily. Please continue to monitor. 11. Vitamin C deficiency/overall nutrition: ascorbic acid 1000mg PO BID and multivitamin 1T PO DAILYCM. Please continue to monitor. Psychotropic Medications: 1. Insomnia: melatonin 10mg PO QHS. Please continue to monitor for excessive drowsiness or confusion. Unnecessary Medications: None Bowel Regimen: Miralax 17gm PO daily, senna/docusate 2T PO BID, bisacodyl 10mg PO daily PRN constipation. Please continue to monitor for constipation and PRN usage. Date of Note:: 04/20/19 - Provider Comments Provider responsibility: Provider responsible to enter orders to implement recommendations <Ayaan Kaplan Chi - Last Filed: 04/20/19 20:13> Progress Note - Pharmacy Subjective: [] Objective: Allergies Penicillins Allergy (Verified 04/16/19 07:44) CHILDHOOD ALLERGY PER PATIENT'S MOTHER. PATIENT UNAWARE OF ANY OTHER ALLERGY. WASP STINGS Allergy (Severe, Uncoded 03/22/19 08:14) Anaphylaxis USES EPI PEN Current Medications Generic Name Dose Route Start Last Admin Trade Name Freq PRN Reason Stop Dose Admin Acetaminophen 1,000 mg 04/19/19 22:00 04/20/19 14:00 Tylenol PO 1,000 mg Q8 FADI Administration Ascorbic Acid 1,000 mg 04/19/19 18:00 04/20/19 16:47 Vitamin C PO 1,000 mg BID FADI Administration Aspirin 81 mg 04/19/19 17:00 04/20/19 16:47 Aspirin, Baby PO 05/17/19 08:01 81 mg BIDCM FADI Administration Atorvastatin Calcium 20 mg 04/19/19 22:00 04/19/19 22:12 Lipitor PO 20 mg QHS FADI Administration Bisacodyl 10 mg 04/19/19 20:05 Dulcolax PO DAILY PRN Constipation Ferrous Sulfate 325 mg 04/20/19 08:00 04/20/19 07:51 Ferrous Sulfate PO 325 mg DAILY@0800 FADI Administration Heparin Sodium (Beef Lung) 50 units 04/19/19 14:23 IV UD PRN PICC Line Heparin Flush Heparin Sodium (Beef Lung) 50 units 04/19/19 17:31 IV UD PRN PICC Line Heparin Flush Ceftriaxone Sodium 2 gm/ 50 mls @ 100 mls/hr 04/20/19 10:00 04/20/19 15:51 Sodium Chloride IV 05/28/19 11:00 Infused Q24 FADI Infusion Lactobacillus Acidophilus 1 tablet 04/20/19 06:00 04/20/19 05:29 Acidophilus PO 1 tablet DAILY FADI Administration Melatonin 10 mg 04/19/19 22:00 04/19/19 22:22 Melatonin PO 10 mg QHS FADI Administration Meloxicam 7.5 mg 04/19/19 18:00 04/20/19 16:46 Mobic PO 7.5 mg BID FADI Administration Metformin HCl 500 mg 04/19/19 17:00 04/20/19 16:46 Glucophage PO 500 mg BIDCM [facility] Administration Multivitamins/Minerals 1 tablet 04/20/19 08:00 04/20/19 07:51 Multivitamin With Minerals (Bkc) PO 1 tablet DAILYCM [facility] Administration Niacin 500 mg 04/19/19 18:00 04/20/19 16:46 Niaspan PO 500 mg BID FADI Administration Pqbty-7-Wcul Ethyl Esters 2 gm 04/20/19 06:00 04/20/19 05:29 Lovaza PO 2 gm DAILY FADI Administration Oxycodone HCl 5 mg 04/19/19 14:11 Oxyir PO Q4H PRN PRN Pain Score 1-10/10 Polyethylene Glycol 17 gm 04/20/19 06:00 04/20/19 05:34 Miralax PO 17 gm DAILY FADI Administration Senna/Docusate Sodium 2 tablet 04/20/19 06:00 04/20/19 16:46 Senokot-S, Cynthia-Colace PO 2 tablet BID FADI Administration Sodium Chloride 10 - 40 ml 04/19/19 14:23 04/19/19 22:23 IV 10 ml UD PRN Administration Open End PICC Flush Sodium Chloride 10 - 40 ml 04/19/19 14:23 0.9% Nacl (Sterile) Posiflush IV UD PRN Port access or dressing change Sodium Chloride 10 - 40 ml 04/19/19 17:31 IV UD PRN Open End PICC Flush Sodium Chloride 10 - 40 ml 04/19/19 17:31 0.9% Nacl (Sterile) Posiflush IV UD PRN Port access or dressing change Tizanidine HCl 4 mg 04/19/19 15:22 Zanaflex PO TID PRN PRN MUSCLE RELAXATION Tuberculin PPD 5 tu 04/27/19 10:00 Tubersol, Aplisol, Ppd ID 04/27/19 10:01 X1 ONE Valsartan 160 mg 04/20/19 06:00 04/20/19 05:29 Diovan PO 160 mg DAILY FADI Administration Problem List (Last Reviewed 03/17/19 @ 18:13 by Chavo Alcala MD) Debility (Acute) Infected prosthesis of left hip (Acute) Hyperlipidemia (Chronic) Muscle spasm (Chronic) Vital Signs Temp Pulse Resp BP Pulse Ox 98.0 F 74 18 153/78 H 97 04/20/19 14:27 04/20/19 14:27 04/20/19 14:27 04/20/19 14:27 04/20/19 14:27 Oxygen Delivery Method Room Air Weight: 88.932 kg Body Mass Index (BMI) 29.8 Finger Stick Blood Glucose 120 Sodium 135 mmol/L (136-145) L 04/20/19 05:25 Potassium 4.2 mmol/L (3.5-5.1) 04/20/19 05:25 Chloride 99 mmol/L (98-107) 04/20/19 05:25 Carbon Dioxide 30.0 mmol/L (21.0-32.0) 04/20/19 05:25 Anion Gap 6 (5-15) 04/20/19 05:25 BUN 13 mg/dL (7-18) 04/20/19 05:25 Creatinine 0.82 mg/dL (0.70-1.30) 04/20/19 05:25 Est GFR (MDRD) Af Amer 119 mL/min (>60) 04/20/19 05:25 Est GFR (MDRD) Non-Af 99 mL/min (>60) 04/20/19 05:25 BUN/Creatinine Ratio 15.8 RATIO (10-20) 04/20/19 05:25 Glucose 175 mg/dL (74-106) H 04/20/19 05:25 Assessment/Plan: Psychotropic Medications: Unnecessary Medications: Bowel Regimen: - Provider Comments Provider responsibility: Provider responsible to enter orders to implement recommendations Provider Comments to Recommendations by Pharmacy: Agree
--- NOTE | 2019-04-20 14:48 | CHAPLAIN ---
Type of Pastoral Visit _x__ Initial Visit ___ Follow-up Visit ___ On-call Visit ___ General Patient Visit ___ Spiritual Assessment ___ Family Conference ___ Bereavement ___ Rapid Response ___ Code Blue ___ Other (describe below) Pastoral Care Referral From _x__ Patient ___ Family ___ Nurse ___ Physician ___ Implementation Lead ___ Platen Grinder ___ Other (describe below) Sacrament/Intervention _x__ Active listening ___ Anointing ___ Congregation ___ Bereavement ___ Communion _x__ Yesi exploration ___ _x__ Life review _x__ Prayer ___ Reconciliation ___ Sacrament of Sick _x__ Supportive presence ___ Wedding ___ Other (describe below) Pastoral Comments patient was eager to have well logging captain mud analysis sit with him and to talk; at times the patient was tearful; pt is making decision about going home or staying longer; pt desires to be home and to be in comfortable setting as being in hospital is very different for me and I like being alone and away from people; pt says he wants to make the right decision for his recovery and in concern for his who would be his caregiver; pt states he is a person of yesi but does not attend sikhism; pt says his support includes , some cousins, and some neighbors; pt welcomes prayer and would welcome future visits for spiritual and emotional support if he stays
--- NOTE | 2019-04-20 16:03 | CASEMGMT ---
Social Work Reviewed and agreed with social work dietetic intern documentation on this date. Merry Figueredo, CLINICAL REHABILITATION COORDINATOR GOLF COURSE MECHANIC
--- NOTE | 2019-04-20 16:27 | CASEMGMT ---
Social Work Pt had a change in condition and has chosen to stay, will continue to follow. Daniella Shaffer, social work international manager Merry Figueredo, SENIOR RISK ANALYST KIDNEY PULLER
[2019-04-20] MEDS: MELATONIN 10 MG TABLET PO (22:32)
[2019-04-20] MEDS: Atorvastatin Calcium 20 MG Tablet PO (22:32)
--- NOTE | 2019-04-20 22:32 | NURSING ---
PT VERY UPSET THAT THIS RN ATTEMPTED TO GIVE HIM MEDICATIONS AT 2215. STATED HE HADN'T SLEPT FOR 4-5 NIGHTS AND HE HAD JUST FELL ASLEEP WHEN YOU WOKE ME UP. RESIDENT STATES THAT THIS RN DID NOT NEED TO WAKE HIM UP FOR A SLEEPING PILL. THIS RN PROCEEDED TO REVIEW THE OTHER MEDICATIONS THIS PT RECEIVES Q TO WHICH HE REPLIED I WOULD SKIP THOSE FOR SLEEP. THIS RN APOLOGIZED AND EXPLAINED THAT STAFF WERE NEEDED ELSEWHERE EARLIER AND WE ARE HERE TO GIVE MEDICATIONS AT THIS TIME. RESIDENT REPEATEDLY STATED THIS IS THE LAST NIGHT THIS IS GOING TO HAPPEN TO ME. I'LL GET THIS SCHEDULE STRAIGHTENED OUT TOMORROW. THANKED RESIDENT FOR HIS PATIENCE BEFORE AND AFTER ADMINISTERING MEDICATIONS.
[2019-04-21] MEDS: Polyethylene Glycol 3350 17 GM PACKET PO (05:48)
[2019-04-21] MEDS: Acetaminophen 500 MG Tablet 1000 MG PO ×3 (05:49→17:41)
[2019-04-21] MEDS: Niacin SA 500 MG Tablet PO ×2 (05:49→17:42)
[2019-04-21] MEDS: Ascorbic Acid 500 MG Tablet 1000 MG PO ×2 (05:50→17:41)
[2019-04-21] MEDS: Meloxicam 7.5 MG Tablet PO ×2 (05:50→17:41)
[2019-04-21] MEDS: Senna/Docusate Sodium 1 Tablet 2 TABLET PO ×2 (05:50→17:41)
[2019-04-21] MEDS: Omega-3 Acid Ethyl Esters 1 GM Capsule 2 GM PO (05:51)
[2019-04-21 06:11] LABS: Bedside Glucose 241 mg/dL (70-110)
[2019-04-21] MEDS: Multivitamins,Ther W-Minerals Tablet 1 TABLET PO (08:01)
[2019-04-21] MEDS: metFORMIN HCl 500 MG Tablet PO ×2 (08:01→17:41)
[2019-04-21] MEDS: Aspirin 81 MG TAB.CHEW PO ×2 (08:01→17:41)
[2019-04-21] MEDS: Ferrous Sulfate 325 MG Tablet PO (08:01)
--- NOTE | 2019-04-21 09:59 | CASEMGMT ---
Social Work IDT met with patient and for care plan meeting. Discussed patient's progress in therapy. Pt is min assist for LE bathing, CGA for LE dressing with adaptive equipment to maintain TTWBS. Pt is seated at SBA for UE ADLs and grooming, CGA for transfers, walking 20 ft FWW CGA, completed 2-3 steps with 2 HR at mod assist. Pt is on regular, no concentrated sweets diet with ensure at night. Pt is on IV ATBs Q24 until 05/27. Explained Medicare benefit. Will continue to follow. MIHAELA WilliamsonW
[2019-04-21 16:31] VITALS: BP 158/75; PULSE 70; RESP 18; TEMP 36.2; O2SAT 97
--- NOTE | 2019-04-21 16:31 | NURSING ---
surgical dressing removed per Dr. Raphael's postop instructions today. left SENIOR REPORT DEVELOPER eh in place per discharge instructions to not place any tape on skin. there was a scant amount of green drainage on surgical mepilex. site is without redness, swelling, warmth
[2019-04-21] MEDS: Atorvastatin Calcium 20 MG Tablet PO (17:41)
[2019-04-21] MEDS: oxyCODONE 5 MG Tablet PO (23:57)
[2019-04-22 05:06] LABS: Bedside Glucose 169 mg/dL (70-110)
[2019-04-22] MEDS: Acetaminophen 500 MG Tablet 1000 MG PO ×3 (05:10→18:42)
[2019-04-22] MEDS: Polyethylene Glycol 3350 17 GM PACKET PO (05:16)
[2019-04-22] MEDS: Omega-3 Acid Ethyl Esters 1 GM Capsule 2 GM PO (05:18)
[2019-04-22] MEDS: Meloxicam 7.5 MG Tablet PO ×2 (05:18→17:26)
[2019-04-22] MEDS: Niacin SA 500 MG Tablet PO ×2 (05:18→17:27)
[2019-04-22] MEDS: Senna/Docusate Sodium 1 Tablet 2 TABLET PO ×2 (05:18→17:28)
[2019-04-22] MEDS: Ascorbic Acid 500 MG Tablet 1000 MG PO ×2 (05:18→17:28)
[2019-04-22] MEDS: Aspirin 81 MG TAB.CHEW PO ×2 (07:52→17:25)
[2019-04-22] MEDS: metFORMIN HCl 500 MG Tablet PO ×2 (07:52→17:26)
[2019-04-22] MEDS: Multivitamins,Ther W-Minerals Tablet 1 TABLET PO (07:52)
[2019-04-22] MEDS: Ferrous Sulfate 325 MG Tablet PO (07:52)
[2019-04-22 14:17] VITALS: BP 147/62; PULSE 70; RESP 16; TEMP 36.5; O2SAT 99
--- NOTE | 2019-04-22 14:48 | CHAPLAIN ---
Type of Pastoral Visit ___ Initial Visit _x__ Follow-up Visit ___ On-call Visit ___ General Patient Visit ___ Spiritual Assessment ___ Family Conference ___ Bereavement ___ Rapid Response ___ Code Blue ___ Other (describe below) Pastoral Care Referral From _x__ Patient ___ Family ___ Nurse ___ Physician ___ Costume Mistress ___ Outsole Molder ___ Other (describe below) Sacrament/Intervention _x__ Active listening ___ Anointing ___ Religion ___ Bereavement ___ Communion ___ Yesi exploration ___ _x__ Life review _x__ Prayer ___ Reconciliation ___ Sacrament of Sick _x__ Supportive presence ___ Wedding ___ Other (describe below) Pastoral Comments spouse is with patient; pt is expressive of appreciation; pt is thankful to be staying at [facility] for care; pt invites this sheet metal erector for future visits and support
[2019-04-22] MEDS: Atorvastatin Calcium 20 MG Tablet PO (18:42)
[2019-04-22] MEDS: oxyCODONE 5 MG Tablet PO (18:46)
[2019-04-22] MEDS: 0.9% Saline Lock 10 ML Syringe IV (21:08)
[2019-04-23] MEDS: Omega-3 Acid Ethyl Esters 1 GM Capsule 2 GM PO (04:45)
[2019-04-23] MEDS: Niacin SA 500 MG Tablet PO ×2 (04:46→16:54)
[2019-04-23] MEDS: Meloxicam 7.5 MG Tablet PO ×2 (04:46→16:54)
[2019-04-23] MEDS: Ascorbic Acid 500 MG Tablet 1000 MG PO ×2 (04:46→16:55)
[2019-04-23] MEDS: Senna/Docusate Sodium 1 Tablet 2 TABLET PO ×2 (04:46→16:55)
[2019-04-23 06:16] LABS: Bedside Glucose 213 mg/dL (70-110)
[2019-04-23] MEDS: Aspirin 81 MG TAB.CHEW PO ×2 (08:43→16:54)
[2019-04-23] MEDS: metFORMIN HCl 500 MG Tablet PO ×2 (08:43→16:53)
[2019-04-23] MEDS: Multivitamins,Ther W-Minerals Tablet 1 TABLET PO (08:43)
[2019-04-23] MEDS: Ferrous Sulfate 325 MG Tablet PO (08:43)
[2019-04-23] MEDS: 0.9% Saline Lock 10 ML Syringe IV (11:12)
[2019-04-23] MEDS: Acetaminophen 500 MG Tablet 1000 MG PO (11:27)
[2019-04-23 16:00] VITALS: BP 134/75; PULSE 66; RESP 20; TEMP 37.2; O2SAT 95
[2019-04-23] MEDS: Atorvastatin Calcium 20 MG Tablet PO (20:08)
[2019-04-23] MEDS: oxyCODONE 5 MG Tablet PO (20:14)
--- NOTE | 2019-04-24 05:17 | NURSING ---
Pt requested early glucose check this morning at 515
[2019-04-24 05:25] LABS: Bedside Glucose 169 mg/dL (70-110)
[2019-04-24] MEDS: Senna/Docusate Sodium 1 Tablet 2 TABLET PO (05:52)
[2019-04-24] MEDS: Meloxicam 7.5 MG Tablet PO ×2 (05:53→16:59)
[2019-04-24] MEDS: Ascorbic Acid 500 MG Tablet 1000 MG PO ×2 (05:53→17:00)
[2019-04-24] MEDS: Niacin SA 500 MG Tablet PO ×2 (05:53→17:00)
[2019-04-24] MEDS: Omega-3 Acid Ethyl Esters 1 GM Capsule 2 GM PO (05:53)
[2019-04-24] MEDS: Multivitamins,Ther W-Minerals Tablet 1 TABLET PO (08:40)
[2019-04-24] MEDS: Aspirin 81 MG TAB.CHEW PO ×2 (08:40→16:59)
[2019-04-24] MEDS: metFORMIN HCl 500 MG Tablet PO ×2 (08:40→16:59)
[2019-04-24] MEDS: Ferrous Sulfate 325 MG Tablet PO (08:40)
[2019-04-24] MEDS: 0.9% Saline Lock 10 ML Syringe IV ×2 (10:59→19:53)
[2019-04-24] MEDS: Acetaminophen 500 MG Tablet 1000 MG PO ×2 (13:04→19:52)
[2019-04-24 14:43] VITALS: BP 147/65; PULSE 69; RESP 20; TEMP 36.8; O2SAT 98
[2019-04-24] MEDS: Senna/Docusate Sodium 1 Tablet PO (17:00)
[2019-04-24] MEDS: Atorvastatin Calcium 20 MG Tablet PO (19:51)
[2019-04-25 05:21] LABS: Bedside Glucose 172 mg/dL (70-110)
[2019-04-25] MEDS: Omega-3 Acid Ethyl Esters 1 GM Capsule 2 GM PO (05:56)
[2019-04-25] MEDS: Niacin SA 500 MG Tablet PO ×2 (05:56→17:10)
[2019-04-25] MEDS: Ascorbic Acid 500 MG Tablet 1000 MG PO ×2 (05:57→17:10)
[2019-04-25] MEDS: Meloxicam 7.5 MG Tablet PO ×2 (05:57→17:10)
[2019-04-25] MEDS: Senna/Docusate Sodium 1 Tablet PO ×2 (05:57→17:10)
[2019-04-25] MEDS: Multivitamins,Ther W-Minerals Tablet 1 TABLET PO (08:22)
[2019-04-25] MEDS: Aspirin 81 MG TAB.CHEW PO ×2 (08:23→17:10)
[2019-04-25] MEDS: metFORMIN HCl 500 MG Tablet PO ×2 (08:23→17:10)
[2019-04-25] MEDS: Ferrous Sulfate 325 MG Tablet PO (08:23)
[2019-04-25] MEDS: 0.9% Saline Lock 10 ML Syringe IV ×3 (11:32→19:35)
[2019-04-25] MEDS: Acetaminophen 500 MG Tablet 1000 MG PO (12:32)
[2019-04-25 15:16] VITALS: BP 119/62; PULSE 77; RESP 18; TEMP 36.9; O2SAT 96
[2019-04-25] MEDS: oxyCODONE 5 MG Tablet PO (17:16)
[2019-04-25] MEDS: Atorvastatin Calcium 20 MG Tablet PO (19:33)
[2019-04-26] MEDS: Omega-3 Acid Ethyl Esters 1 GM Capsule 2 GM PO (05:50)
[2019-04-26] MEDS: Meloxicam 7.5 MG Tablet PO ×2 (05:50→17:27)
[2019-04-26] MEDS: Niacin SA 500 MG Tablet PO ×2 (05:50→17:26)
[2019-04-26] MEDS: Senna/Docusate Sodium 1 Tablet PO ×2 (05:50→17:27)
[2019-04-26] MEDS: Ascorbic Acid 500 MG Tablet 1000 MG PO ×2 (05:50→17:27)
[2019-04-26 06:00] LABS: Bedside Glucose 161 mg/dL (70-110)
[2019-04-26] MEDS: Acetaminophen 500 MG Tablet 1000 MG PO (08:44)
[2019-04-26] MEDS: Aspirin 81 MG TAB.CHEW PO ×2 (08:44→17:27)
[2019-04-26] MEDS: metFORMIN HCl 500 MG Tablet PO ×2 (08:44→17:27)
[2019-04-26] MEDS: Multivitamins,Ther W-Minerals Tablet 1 TABLET PO (08:44)
[2019-04-26] MEDS: Ferrous Sulfate 325 MG Tablet PO (10:50)
[2019-04-26] MEDS: 0.9% Saline Lock 10 ML Syringe IV ×2 (10:51→20:15)
[2019-04-26 14:27] VITALS: BP 128/63; PULSE 68; RESP 16; TEMP 36.6; O2SAT 98
--- NOTE | 2019-04-26 15:55 | CASEMGMT ---
Social Work Reviewed and agreed with social work internet database specialist documentation on this date. Merry Figueredo, SPOOL TENDER ASSISTANT PRESS OPERATOR OFFSET
[2019-04-26] MEDS: oxyCODONE 5 MG Tablet PO (17:32)
[2019-04-26] MEDS: Atorvastatin Calcium 20 MG Tablet PO (19:51)
[2019-04-27 04:45] LABS: Bedside Glucose 179 mg/dL (70-110)
[2019-04-27] MEDS: Acetaminophen 500 MG Tablet 1000 MG PO ×2 (04:48→20:04)
[2019-04-27] MEDS: Omega-3 Acid Ethyl Esters 1 GM Capsule 2 GM PO (04:59)
[2019-04-27] MEDS: Ascorbic Acid 500 MG Tablet 1000 MG PO ×2 (05:00→16:58)
[2019-04-27] MEDS: Meloxicam 7.5 MG Tablet PO ×2 (05:00→16:59)
[2019-04-27] MEDS: Niacin SA 500 MG Tablet PO ×2 (05:00→16:59)
[2019-04-27] MEDS: Senna/Docusate Sodium 1 Tablet PO ×2 (05:01→16:59)
[2019-04-27 05:56] LABS: Erythrocyte Sedimentation Rate 19 mm/hr (0-20)
[2019-04-27 05:57] LABS: Absolute Lymphocyte Count 2.01 X10^3/uL (0.83-4.51); Absolute Neutrophil Count 3.4 X10^3/uL (2.0-7.7); Basophil# 0.03 X10^3/uL; Basophil% 0.4 % (0-1); Eosinophil# 0.66 X10^3/uL; Eosinophils% 9.8 % (0-5); Hematocrit 32.2 % (40-54); Hemoglobin 10.5 g/dL (13.0-16.5); Lymphocyte # 2.01 X10^3/ul (4.0); Lymphocyte % 29.8 % (19-41); Mean Corp Hgb Conc 32.6 g/dL (32-36); Mean Platelet Vol. 9.6 fl (6.2-12.0); Monocyte# 0.61 X10^3/uL; Monocyte% 9.1 % (0-10); NRBC Flagged by Analyzer 0 % (0-5); Neutrophil # 3.38 X10^3/uL (2.7-7.7); Neutrophil % 50.2 % (47-70); Platelet Count 267 K/mm3 (150-450); RBC Distribution Width SD 46.2 fl (35.1-43.9); White Blood Count 6.7 K/mm3 (4.4-11.0)
[2019-04-27 06:02] LABS: Anion Gap 9 (5-15); BUN 17 mg/dL (7-18); BUN/Creat Ratio 18.5 RATIO (10-20); Calcium,Total 8.9 mg/dL (8.5-10.1); Chloride 97 mmol/L (98-107); Creatinine, Serum 0.92 mg/dL (0.70-1.30); EST Glomerular Filtration Rate 87 mL/min (>60); Est Glom Filt Rate - Afr Amer 105 mL/min (>60); Estimated Creatinine Clearance 73.32 ml/min; Glucose 214 mg/dL (74-106); Potassium 4.5 mmol/L (3.5-5.1); Sodium Level 132 mmol/L (136-145)
[2019-04-27] MEDS: Ferrous Sulfate 325 MG Tablet PO (09:17)
[2019-04-27] MEDS: metFORMIN HCl 500 MG Tablet PO ×2 (09:17→16:59)
[2019-04-27] MEDS: Aspirin 81 MG TAB.CHEW PO ×2 (09:18→16:59)
[2019-04-27] MEDS: Multivitamins,Ther W-Minerals Tablet 1 TABLET PO (09:18)
[2019-04-27] MEDS: 0.9% Saline Lock 10 ML Syringe IV ×2 (09:28→19:56)
--- NOTE | 2019-04-27 09:55 | CASEMGMT ---
Social Work Reviewed and agreed with social work internal communications writer documentation on this date. Merry Figueredo, CUSTOMER SERVICE MANAGER GOLD LAYER
[2019-04-27] MEDS: Tuberculin,Purif.prot.deriv. 50 TU/ML Vial 5 ML ID (10:35)
[2019-04-27 14:44] VITALS: BP 138/77; PULSE 79; RESP 16; TEMP 36.7; O2SAT 97
[2019-04-27] MEDS: Atorvastatin Calcium 20 MG Tablet PO (16:58)
[2019-04-27] MEDS: oxyCODONE 5 MG Tablet PO (20:05)
[2019-04-27 23:00] LABS: Bedside Glucose 191 mg/dL (70-110)
--- NOTE | 2019-04-27 23:07 | NURSING ---
Addendum entered by Julia Anand 04/28/19 06:17: Pt stating to feel a little better this AM. stating he thinks he got food poisoning from eating chicken wings that were sitting out on his counter for a couple of hours yesterday. Still stating to feel a little nauseas. Vitals stable. Pt refusing all AM meds. Requesting yanet jesus and saltine crackers. Assisted to bed with call light in reach. Original Note: 2214 pt called out stating to be nauseas. 2xl yellow emesis and 2xl liquid bowel movements. Dr. Kaplan updated. New order for enteric panel and NS 1L x1 running at 75ml/hr. 2229 aide yelling for assistance stating pt thought he was going to pass out. Nurse promptly to room. Pt diaphoretic, nauseas, unable to respond to questions. PLASTIC BATTERY ASSEMBLER called at 2234. Dr. Dolan and dope house operator helper to . Pt A&Ox4 stating to feel lightheaded. Fluids started and pt assisted back to bed with assistance x3. Pt still diaphoretic but stating to feel better.
[2019-04-27] MEDS: 0.9% Normal Saline 1,000 ML 75 ML IV (23:14)
[2019-04-28 06:16] VITALS: BP 124/58; PULSE 88; RESP 19; TEMP 36.4; O2SAT 97
[2019-04-28 06:16] LABS: Bedside Glucose 225 mg/dL (70-110)
--- NOTE | 2019-04-28 06:43 | MDS.RN ---
Information for the mds was obtained from review of the clinical record, interview of resident, staff, and direct observation of resident's care.
[2019-04-28] MEDS: 0.9% Saline Lock 10 ML Syringe IV (10:37)
--- NOTE | 2019-04-28 12:24 | NURSING ---
Resident remains in contact isolation pending lab result. All care provided in room.
--- NOTE | 2019-04-28 12:49 | NURSING ---
Received call from lab that patient is positive for norovirus. Dr Kaplan made aware.
[2019-04-28 13:49] VITALS: BP 100/61; PULSE 75; RESP 16; TEMP 37.7; O2SAT 90
[2019-04-28] MEDS: Acetaminophen 500 MG Tablet 1000 MG PO ×2 (15:39→21:05)
[2019-04-28 15:50] VITALS: TEMP 37.9
[2019-04-28 17:21] VITALS: TEMP 37.5; O2SAT 98
--- NOTE | 2019-04-28 17:22 | NURSING ---
RESIDENT REFUSED EVENING MEDS. IV FLUIDS INFUSING AT 75CC/HR. DENIES NEEDS AT THIS TIME.
--- NOTE | 2019-04-28 17:29 | NURSING ---
DR. BETANCUR REVIEWED BLOOD SUGARS. NO N.O.
[2019-04-28 20:55] VITALS: TEMP 36.6
[2019-04-29] MEDS: 0.9% Normal Saline 1,000 ML 75 ML IV ×2 (01:58→15:41)
[2019-04-29 06:35] LABS: Bedside Glucose 160 mg/dL (70-110)
[2019-04-29 07:37] VITALS: BP 143/70; TEMP 36
--- NOTE | 2019-04-29 08:29 | NURSING ---
Pt refused all 8am medications this morning d/t nausea, RN aware
[2019-04-29] MEDS: Acetaminophen 500 MG Tablet 1000 MG PO (10:42)
[2019-04-29] MEDS: 0.9% Saline Lock 10 ML Syringe IV (10:43)
--- NOTE | 2019-04-29 12:21 | NURSING ---
spoke with clinical asst to Dr Raphael regarding staple removal date was to be done at appt 04/30 but cancelled d/t norovirus. rescheduled appt on may 15, she will call back to see if appt needs to be sooner or TCU staff can remove eh here. awaiting return call.
[2019-04-29 14:38] VITALS: BP 118/76; PULSE 70; RESP 16; TEMP 36.7; O2SAT 96
--- NOTE | 2019-04-29 23:49 | NURSING ---
Pt remains in special contact isolation during shift d/t norovirus. All care provided in room.
[2019-04-30] MEDS: 0.9% Normal Saline 1,000 ML 75 ML IV (06:00)
[2019-04-30 06:20] LABS: Bedside Glucose 153 mg/dL (70-110)
--- NOTE | 2019-04-30 08:16 | NURSING ---
pt remains in special contact isolation for norovirus. all care/treatments provided in pt room
[2019-04-30] MEDS: Acetaminophen 500 MG Tablet 1000 MG PO (11:47)
--- NOTE | 2019-04-30 14:01 | CASEMGMT ---
Social Work Pt requested to speak with SW over some concerns and possibly DC early. Provided active listening to pt while he was expressing his concerns. Pts overall frustration was with infection control protocols. Educated pt to hospital and unit policies, specifically PPE is to protect pt from not getting any further contamination. Answered other questions and addressed concerns, pt agreeable to remain throughout IVs. SW offered to provide continued active listening. Provided pt with Infection Control nurse card so pt could call if he wanted to address any other concerns on this topic. Pt pleasant and appreciative of SW visit at end of conversation. Daniella Shaffer, social work legal internship Merry Figueredo, MANUFACTURING PROJECT MANAGER MENHADEN VESSEL PILOT
[2019-04-30 15:39] VITALS: BP 158/76; PULSE 68; RESP 20; TEMP 36.9; O2SAT 97
--- NOTE | 2019-04-30 17:08 | NURSING ---
DR. BETANCUR UPDATED THAT R' STILL REFUSING MOST MEDICATIONS.
[2019-04-30] MEDS: Atorvastatin Calcium 20 MG Tablet PO (17:41)
[2019-04-30] MEDS: 0.9% Saline Lock 10 ML Syringe IV (21:44)
--- NOTE | 2019-04-30 23:11 | NURSING ---
Pt remains in special contact isolation during shift d/t norovirus. All care provided in room.
[2019-05-01] MEDS: Ascorbic Acid 500 MG Tablet 1000 MG PO ×2 (05:31→17:54)
[2019-05-01 05:46] LABS: Bedside Glucose 142 mg/dL (70-110)
--- NOTE | 2019-05-01 08:29 | NURSING ---
Pt remains in special contact isolation during shift d/t norovirus. All care provided in room.
[2019-05-01 13:56] VITALS: BP 130/65; PULSE 70; RESP 18; TEMP 36.4; O2SAT 98
[2019-05-01] MEDS: Atorvastatin Calcium 20 MG Tablet PO (17:54)
[2019-05-02 06:25] LABS: Bedside Glucose 170 mg/dL (70-110)
[2019-05-02] MEDS: Ascorbic Acid 500 MG Tablet 1000 MG PO ×2 (06:55→17:22)
[2019-05-02] MEDS: Omega-3 Acid Ethyl Esters 1 GM Capsule 2 GM PO (06:56)
[2019-05-02] MEDS: Aspirin 81 MG TAB.CHEW PO ×2 (08:33→17:22)
[2019-05-02] MEDS: metFORMIN HCl 500 MG Tablet PO ×2 (08:34→17:21)
[2019-05-02] MEDS: 0.9% Saline Lock 10 ML Syringe IV (10:46)
[2019-05-02 14:25] VITALS: BP 116/59; PULSE 69; RESP 16; TEMP 36.7; O2SAT 98
[2019-05-02] MEDS: Atorvastatin Calcium 20 MG Tablet PO (17:22)
--- NOTE | 2019-05-02 22:37 | NURSING ---
This RN heard patient calling out, this RN went into patients room and found patient sitting at edge of bed with dried blood on left forearm below PICC line. This RN assisted patient back into bed to assess PICC line. Patient stated that he was sitting up to use the urinal and started to feel like his arm was wet, when he looked down he saw blood on his arm. Patient denied getting his arm caught on anything where PICC line was. This RN cleaned off old blood on forearm. During visual assessment of PICC line, dark red blood use noted under PICC line dressing, lunen was intact, no active bleeding was found. This RN called MS Hernandez RN to come and assist with assessment of PICC line and new dressing change. See his documentation as well. Will continue to monitor new dressing applied.
[2019-05-03] MEDS: Omega-3 Acid Ethyl Esters 1 GM Capsule 2 GM PO (06:03)
[2019-05-03] MEDS: Ascorbic Acid 500 MG Tablet 1000 MG PO ×2 (06:03→17:07)
[2019-05-03] MEDS: 0.9% Saline Lock 10 ML Syringe IV ×2 (06:05→10:51)
[2019-05-03 06:20] LABS: Bedside Glucose 129 mg/dL (70-110)
[2019-05-03] MEDS: metFORMIN HCl 500 MG Tablet PO ×2 (09:24→17:07)
[2019-05-03] MEDS: Ferrous Sulfate 325 MG Tablet PO (09:24)
[2019-05-03] MEDS: Multivitamins,Ther W-Minerals Tablet 1 TABLET PO (09:24)
[2019-05-03] MEDS: Aspirin 81 MG TAB.CHEW PO ×2 (09:24→17:08)
--- NOTE | 2019-05-03 10:14 | NURSING ---
Addendum entered by Britta Roman 05/03/19 10:30: Wilma RN returned call, she would like us to leave drsg in place and place pressure over the area with 4x4 and tape but still be able to visualize site. If that not effective, then give her a call back. Original Note: PICC drsg noted to have blood under it around CHG. Updated CONSTRUCTION SUPERVISOR at this time. will call back.
--- NOTE | 2019-05-03 11:10 | NURSING ---
4x4 pressure dressing applied to PICC line at this time per recommendations.
--- NOTE | 2019-05-03 12:26 | NURSING ---
Spoke with ortho office, archana to remove eh on TCU.
--- NOTE | 2019-05-03 14:58 | PN.ID_ITS ---
Patient Problems: Active and Suspected Problems (Last Reviewed 03/17/19 @ 18:[address] Chavo Alcala MD) Debility (Acute) Infected prosthesis of left hip (Acute) Subjective: Diarrhea nearly resolved, no fever, no abd pain, eh still in place. Working with PT/OT. - Physical Exam Vitals/I&O's: Vital Signs Temp Pulse Resp BP Pulse Ox 98.1 F 69 16 116/59 L 98 05/02/19 14:25 05/02/19 14:25 05/02/19 14:25 05/02/19 14:25 05/02/19 14:25 Oxygen Delivery Method Room Air Weight: 89.584 kg Body Mass Index (BMI) 29.8 Finger Stick Blood Glucose 120 Intake and Output for Last 24 Hours 05/01/19 05/02/19 05/03/19 23:59 23:59 23:59 Intake Total 650 / 650 530 / 530 530 / 530 Output Total 250 / 250 250 / 250 Balance 400 / 400 530 / 530 280 / 280 General: Alert, Cooperative, No apparent distress Lungs: Clear to auscultation, Normal air movement Cardiovascular: Regular rate, Regular Rhythm Abdomen: Soft, Non Tender, Non-Distended Skin: No rashes Laboratory Results 05/03/19 06:10: POC Glucose 129 H Current Medications Acetaminophen (Tylenol) 1,000 mg PO Q8H PRN PRN PRN Reason: Pain Score 1-10/10 Last Admin: 04/30/19 11:47 Dose: 1,000 mg Documented by: Ascorbic Acid (Vitamin C) 1,000 mg PO BID [facility] Last Admin: 05/03/19 06:03 Dose: 1,000 mg Documented by: Aspirin ([facility], Baby) [facility] Stop: 05/17/19 08:01 Last Admin: 05/03/19 09:24 Dose: 81 mg Documented by: Atorvastatin Calcium (Lipitor) 20 mg PO DAILY@1900 [facility] Last Admin: 05/02/19 17:22 Dose: 20 mg Documented by: Bisacodyl (Dulcolax) 10 mg PO DAILY PRN PRN Reason: Constipation Ferrous Sulfate (Ferrous Sulfate) 325 mg PO DAILY@0800 [facility] Last Admin: 05/03/19 09:24 Dose: 325 mg Documented by: Heparin Sodium (Beef Lung) () 50 units IV UD PRN PRN Reason: PICC Line Heparin Flush Heparin Sodium (Beef Lung) () 50 units IV UD PRN PRN Reason: PICC Line Heparin Flush Ceftriaxone Sodium 2 gm/ (Sodium Chloride) 50 mls @ 100 mls/hr IV Q24 [facility] Stop: 05/28/19 11:00 Last Infusion: 05/03/19 12:02 Dose: Infused Documented by: Sodium Chloride () 250 mls @ 15 mls/hr IV .[id number] PRN PRN Reason: Saline Flush Last Infusion: 04/28/19 21:36 Dose: Infused Documented by: Sodium Chloride () 250 mls @ 15 mls/hr IV .[id number] PRN PRN Reason: Additional IVPB Infusion Lactobacillus Acidophilus (Acidophilus) 1 tablet PO DAILY [facility] Last Admin: 05/03/19 06:03 Dose: 1 tablet Documented by: Melatonin (Melatonin) 10 mg PO DAILY@1900 PRN PRN Reason: INSOMNIA Meloxicam (Mobic) 7.5 mg PO BID [facility] Last Admin: 05/03/19 06:04 Dose: Not Given Documented by: Metformin HCl (Glucophage) [facility] Last Admin: 05/03/19 09:24 Dose: 500 mg Documented by: Multivitamins/Minerals (Multivitamin With Minerals (Bkc)) 1 [facility] Last Admin: 05/03/19 09:24 Dose: 1 tablet Documented by: Niacin (Niaspan) 500 mg PO BID [facility] Last Admin: 05/03/19 06:04 Dose: Not Given Documented by: [id number]-9-Qrop Ethyl Esters (Lovaza) 2 gm PO DAILY [facility] Last Admin: 05/03/19 06:03 Dose: 2 gm Documented by: Oxycodone HCl (Oxyir) 5 mg PO Q4H PRN PRN PRN Reason: Pain Score 1-10/10 Last Admin: 04/27/19 20:05 Dose: 5 mg Documented by: Polyethylene Glycol (Miralax) 17 gm PO DAILY [facility] Last Admin: 05/03/19 06:04 Dose: Not Given Documented by: Senna/Docusate Sodium (Senokot-S, Cynthia-Colace) 1 tablet PO BID [facility] Last Admin: 05/03/19 06:04 Dose: Not Given Documented by: Sodium Chloride () 10 - 40 ml IV UD PRN PRN Reason: Open End PICC Flush Last Admin: 05/03/19 10:51 Dose: 20 ml Documented by: Sodium Chloride (0.9% Nacl (Sterile) Posiflush) 10 - 40 ml IV UD PRN PRN Reason: Port access or dressing change Sodium Chloride () 10 - 40 ml IV UD PRN PRN Reason: Open End PICC Flush Last Admin: 04/25/19 11:32 Dose: 10 ml Documented by: Sodium Chloride (0.9% Nacl (Sterile) Posiflush) 10 - 40 ml IV UD PRN PRN Reason: Port access or dressing change Tizanidine HCl (Zanaflex) 4 mg PO TID PRN PRN PRN Reason: MUSCLE RELAXATION Tuberculin PPD (Tubersol, Aplisol, Ppd) 5 tu ID X1 ONE Stop: 05/04/19 10:01 Valsartan (Diovan) 160 mg PO DAILY [facility] Last Admin: 05/03/19 06:03 Dose: 160 mg Documented by: Medical Necessity - Tobacco Use Smoking Status: Former smoker Tobacco Use: Cigarettes Route of nutrition/ use of supplements: [] Nutritional Intake: [] IV Site: [] Quiros Catheter: [] - Assessment/Plan Antibiotics: [] Assessment/Plan: [] Active and Suspected Problems (Last Reviewed 03/17/19 @ 18:13 by Chavo Alcala MD) Debility (Acute) 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 Raphael. Wound cx 03/05/19 with group G strep. Surg cx here are neg. Picc is in, plan on 6 week course of ceftriaxone, stop date 05/28/19 with weekly bmp, cbc, and esr. He is ok to go home on iv abx if he is safe to return home and is able to get his medication. ID followup with me in 2 weeks if he leaves. Norovirus - diarrhea nearly resolved. Will follow
--- NOTE | 2019-05-03 16:24 | NURSING ---
pharmacy called and stated that they are interchanging meds, pt on valsartan which is nonformulary, interchanging to losartin 50mg daily. dr brothers updated.
--- NOTE | 2019-05-03 16:30 | CASEMGMT ---
Social Work Pt requesting to meet with [facility]. Pt stating doctor has released pt to self-administer Q24 IV ATB, so pt requesting to DC home with 05/07/2019. Educated pt to potential costs and Medicare coverage with different IV infusion options, pt requesting [facility] to check on what IVs would cost for pt to self administer. Pt requesting w/c and states he will be having a ramp assembled at home. Pt agreeable to [facility] PT/OT, pt requesting [facility], [facility] called but [facility] does not do IV, they referred pt to [facility]. Gave pt [facility] resources. SWI called [facility] to see IV insurance coverage. Will continue to follow. Daniella Shaffer, social work manager intern MIHAELA WilliamsonW
[2019-05-03 16:39] VITALS: BP 135/68; PULSE 76; RESP 20; TEMP 37.1; O2SAT 97
[2019-05-03] MEDS: Niacin SA 500 MG Tablet PO (17:07)
[2019-05-03] MEDS: Atorvastatin Calcium 20 MG Tablet PO (19:58)
[2019-05-04 06:10] LABS: Anion Gap 4 (5-15); BUN 13 mg/dL (7-18); BUN/Creat Ratio 15.9 RATIO (10-20); Chloride 105 mmol/L (98-107); Creatinine, Serum 0.82 mg/dL (0.70-1.30); EST Glomerular Filtration Rate 99 mL/min (>60); Est Glom Filt Rate - Afr Amer 120 mL/min (>60); Estimated Creatinine Clearance 82.26 ml/min; Glucose 135 mg/dL (74-106); Potassium 4.2 mmol/L (3.5-5.1); Sodium Level 138 mmol/L (136-145)
[2019-05-04 06:13] LABS: Absolute Lymphocyte Count 1.66 X10^3/uL (0.83-4.51); Absolute Neutrophil Count 3.4 X10^3/uL (2.0-7.7); Basophil# 0.02 X10^3/uL; Basophil% 0.3 % (0-1); Eosinophil# 0.32 X10^3/uL; Eosinophils% 5.3 % (0-5); Hematocrit 30.5 % (40-54); Hemoglobin 9.8 g/dL (13.0-16.5); Lymphocyte # 1.66 X10^3/ul (4.0); Lymphocyte % 27.6 % (19-41); Mean Corp Hgb Conc 32.1 g/dL (32-36); Mean Corpuscular Hgb 29.5 pg (27.0-32.0); Mean Corpuscular Volume 91.9 fL (80-94); Monocyte# 0.55 X10^3/uL; Monocyte% 9.1 % (0-10); NRBC Flagged by Analyzer 0 % (0-5); Neutrophil # 3.43 X10^3/uL (2.7-7.7); Platelet Count 203 K/mm3 (150-450); RBC Distribution Width CV 15.1 % (11.6-14.6); RBC Distribution Width SD 50.1 fl (35.1-43.9); Red Blood Count 3.32 M/mm3 (4.6-6.2)
[2019-05-04 06:14] LABS: Erythrocyte Sedimentation Rate 8 mm/hr (0-20)
[2019-05-04 06:30] LABS: Bedside Glucose 135 mg/dL (70-110)
[2019-05-04] MEDS: Ascorbic Acid 500 MG Tablet 1000 MG PO ×2 (06:38→17:44)
[2019-05-04] MEDS: Losartan Potassium 50 MG Tablet PO (06:39)
[2019-05-04] MEDS: Omega-3 Acid Ethyl Esters 1 GM Capsule 2 GM PO (06:39)
--- NOTE | 2019-05-04 07:25 | NURSING ---
all nursing care provided in room d/t pt remains in special contact isolation.
[2019-05-04] MEDS: Ferrous Sulfate 325 MG Tablet PO (08:42)
[2019-05-04] MEDS: Aspirin 81 MG TAB.CHEW PO ×2 (08:42→17:50)
[2019-05-04] MEDS: Multivitamins,Ther W-Minerals Tablet 1 TABLET PO (08:42)
[2019-05-04] MEDS: metFORMIN HCl 500 MG Tablet PO ×2 (08:42→17:42)
--- NOTE | 2019-05-04 08:43 | NURSING ---
pt remains in special contact isolation, all care/treatment provided in room
[2019-05-04] MEDS: 0.9% Saline Lock 10 ML Syringe IV ×2 (10:59→19:44)
--- NOTE | 2019-05-04 14:50 | CASEMGMT ---
Social Work Met with pt about DC plans. Pt requesting DC home with 05/08/2019. Educated pt that cost to pt per week would be $407.13 for self administration of IVs at home-as per [facility]. Pt agreeable to this pena but wanted to call and make sure she was agreeable to this pena as well, agreeable. Pt requested [place] [facility]-PT/OT/SN. Referral made, SN services to begin 05/09/2019. [facility] called [facility] to obtain IV ATB for pt to start 05/09/2019. Pt to have IVs run on TCU before DC. Pt requesting w/c, referred to [facility], script faxed. Pt appreciative of services provided and DC planning and praised staff for quality care. Plan: DC 05/08/2019, [place] [facility]-PT/OT/SN, needs w/c-[facility]. Daniella Shaffer, social work regulatory affairs intern Colten Figueredo, SLEDGER SOFTWARE SUPPORT TECHNICIAN
[2019-05-04 14:53] VITALS: BP 135/87; PULSE 77; RESP 16; TEMP 36.6; O2SAT 97
--- NOTE | 2019-05-04 17:26 | CASEMGMT ---
Social Work Reviewed and agreed with social work email marketing intern documentation on this date. Merry Figueredo, CONCRETE PRODUCTS DISPATCHER CHARTER PILOT
[2019-05-04] MEDS: Niacin SA 500 MG Tablet PO (17:43)
[2019-05-04] MEDS: Meloxicam 7.5 MG Tablet PO (17:44)
[2019-05-04] MEDS: Senna/Docusate Sodium 1 Tablet PO (17:44)
[2019-05-04] MEDS: Tuberculin,Purif.prot.deriv. 50 TU/ML Vial 5 ML ID (17:50)
--- NOTE | 2019-05-04 20:16 | DCINST_ITS ---
- Discharge Diagnoses Current Active Problems: Current Active and Chronic Problems (Last Reviewed 03/17/19 @ 18:[address] Chavo Alcala MD) Debility (Acute) Infected prosthesis of left hip (Acute) Hyperlipidemia (Chronic) Muscle spasm (Chronic) You will use the following diet at home:: No restrictions, Regular Your food should be the consistency of: Regular Your liquids should be the consistency of: Regular/Thin Discharge Activity: Return to Normal Activity, May Shower, Use Walker Call your doctor if you observe: Fever of 101 or Higher, Inability to urinate, Inability to have a bowel movement, Shortness of breath, Chest pain, Uncontrolled pain Allergies/Adverse Reactions: Allergies Penicillins Allergy (Verified 04/16/19 07:44) CHILDHOOD ALLERGY PER PATIENT'S MOTHER. PATIENT UNAWARE OF ANY OTHER ALLERGY. WASP STINGS Allergy (Severe, Uncoded 03/22/19 08:14) Anaphylaxis USES EPI PEN Medications to take at Discharge ascorbic acid (vitamin C) 1,000 mg tablet 1 g PO BID tab 03/15/19 atorvastatin 20 mg tablet 20 mg PO QHS 03/15/19 metformin 500 mg tablet 500 mg PO BID tab 03/15/19 niacin 500 mg tablet 500 mg PO BID 03/15/19 tizanidine 4 mg capsule 4 mg PO PRN PRN cap 03/15/19 L.acidoph,Paracasei, B.lactis [Probiotic] 1 ea PO DAILY 03/22/19 Multivit-Min/FA/Lycopen/Lutein [Centrum Silver Men Tablet] 1 ea PO DAILY 03/22/19 [place]-3 Fatty Acids/Fish Oil [Fish Oil 1,000 mg Capsule] 2 ea PO DAILY 03/22/19 Valsartan [Diovan] 160 mg PO DAILY 04/16/19 Acetaminophen [Tylenol] 1,000 mg PO Q8 04/19/19 Aspirin [Aspirin, Baby] 81 mg PO BID 04/19/19 Ceftriaxone 2 gm IV Q24 04/19/19 Meloxicam [Mobic] 7.5 mg PO BID 04/19/19 0.9 % NaCl (Sterile) Posiflush [0.9% NaCl (Sterile) Posiflush] 10 - 40 ml IV UD PRN disp.syrin 05/04/19 0.9 % NaCl (Sterile) Posiflush [0.9% NaCl (Sterile) Posiflush] 10 - 40 ml IV UD PRN disp.syrin 05/04/19 0.9% Saline Lock 10 - 40 ml IV UD PRN syringe 05/04/19 0.9% Saline Lock 10 - 40 ml IV UD PRN syringe 05/04/19 Ceftriaxone 2 gm IV Q24 vial 05/04/19 Ferrous Sulfate 325 mg PO DAILY@0800 #30 tab 05/04/19 Heparin Pf Lock 10 units/ml 50 units IV UD PRN syringe 05/04/19 Heparin Pf Lock 10 units/ml 50 units IV UD PRN syringe 05/04/19 The following prescriptions were given: Ferrous Sulfate 325 mg PO DAILY@0800 #30 tab Transmission Status: Pending to [id number] Primary Care Physician: Noel Rudd [Primary Care Provider] - Please follow up with your Primary Care Physician in: 1 week. Test Results: Test results from this visit will be discussed in further detail at your follow- up appointment, if applicable. Please Follow Up With: elba Rodriguez When: 2 weeks. Please Follow Up With: Mariano Estrella MD When: 2 weeks. Proposed Discharge Date: 05/08/19
--- NOTE | 2019-05-04 20:18 | DS.PCM_ITS ---
Discharge Date and Diagnosis - Problem List Patient Problems: Active and Suspected Problems (Last Reviewed 03/17/19 @ 18:[address] Chavo Alcala MD) Debility (Acute) Infected prosthesis of left hip (Acute) Date of Admission: 04/19/19 Date of Discharge: 05/08/19 - Primary Discharge Diagnosis Active and Suspected Problems (Last Reviewed 03/17/19 @ 18:[address] Chavo Alcala MD) Debility (Acute) Infected prosthesis of left hip (Acute) - Secondary Discharge Diagnosis Chronic Problems (Last Reviewed 03/17/19 @ 18:[address] 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) nonhealing infected hematoma ulcer draining abscess History of left hip replacement (Chronic) Hospital Course and Treatment Imaging Results: 04/20/19 11:46 Diet: Regular Diet Is pt able to select menu?: Yes Diet Comments: No concentrated sweets Labs (Last 48 Hours) 05/03/19 05/04/19 05/04/19 06:10 05:31 05:35 WBC 6.0 RBC 3.32 L Hgb 9.8 L Hct 30.5 L MCV 91.9 MCH 29.5 MCHC 32.1 RDW Std Deviation 50.1 H RDW Coeff of Kwame 15.1 H Plt Count 203 MPV 10.0 Immature Gran % (Auto) 0.700 Neut % (Auto) 57.0 Lymph % (Auto) 27.6 Meagher % (Auto) 9.1 Eos % (Auto) 5.3 H Baso % (Auto) 0.3 Absolute Neuts (auto) 3.4 Absolute Lymphs (auto) 1.66 Nucleated RBC % 0 ESR 8 Sodium Potassium Chloride Carbon Dioxide Anion Gap BUN Creatinine Estim Creat Clear Calc Est GFR (MDRD) Af Amer Est GFR (MDRD) Non-Af BUN/Creatinine Ratio Glucose Calcium POC Glucose 129 H 135 H 05/04/19 05:35 WBC RBC Hgb Hct MCV MCH MCHC RDW Std Deviation RDW Coeff of Kwame Plt Count MPV Immature Gran % (Auto) Neut % (Auto) Lymph % (Auto) Meagher % (Auto) Eos % (Auto) Baso % (Auto) Absolute Neuts (auto) Absolute Lymphs (auto) Nucleated RBC % ESR Sodium 138 Potassium 4.2 Chloride 105 Carbon Dioxide 29.0 Anion Gap 4 L BUN 13 Creatinine 0.82 Estim Creat Clear Calc 82.26 Est GFR (MDRD) Af Amer 120 Est GFR (MDRD) Non-Af 99 BUN/Creatinine Ratio 15.9 Glucose 135 H Calcium 9.0 POC Glucose Operations: None Procedures: None Summary of Care Provided: The patient is a 68 year old Male with below past medical history hospitalized for left prosthetic hip infection, underwent left posterior hip explant with placement of antibiotic spacer 04/16/[address] Raphael, admitted to TCU with debility, here for rehabilitation, strengthening, intravenous antibiotics, prior to discharge home with . Resident opted to finish intravenous antibiotics at home thru 05/28/2019. Aspirin 81MG twice daily thru 05/14/2019 for DVT prophylaxis, then Aspirin 81MG daily for CV prophylaxis. Discharge home with , [facility] for PT/OT/SN, [facility]. Patient Problems: Active and Suspected Problems (Last Reviewed 03/17/19 @ 18:[address] Chavo Alcala MD) Debility (Acute) Infected prosthesis of left hip (Acute) - Physical Exam Vitals/I&O's: Vital Signs Temp Pulse Resp BP Pulse Ox 97.9 F 77 16 135/87 H 97 05/04/19 14:53 05/04/19 14:53 05/04/19 14:53 05/04/19 14:53 05/04/19 14:53 Oxygen Delivery Method Room Air Weight: 86.806 kg Body Mass Index (BMI) 29.8 Finger Stick Blood Glucose 120 Intake and Output for Last 24 Hours 05/02/19 05/03/19 05/04/19 23:59 23:59 23:59 Intake Total 530 / 530 890 / 890 1379 / 1379 Output Total 250 / 250 400 / 400 Balance 530 / 530 640 / 640 979 / 979 Laboratory Results 05/04/19 05:31: POC Glucose 135 H 05/04/19 05:35: WBC 6.0, RBC 3.32 L, Hgb 9.8 L, Hct 30.5 L, MCV 91.9, MCH 29.5, MCHC 32.1, RDW Std Deviation 50.1 H, RDW Coeff of Kwame 15.1 H, Plt Count 203, MPV 10.0, Immature Gran % (Auto) 0.700, Neut % (Auto) 57.0, Lymph % (Auto) 27.6, Meagher % (Auto) 9.1, Eos % (Auto) 5.3 H, Baso % (Auto) 0.3, Absolute Neuts (auto) 3.4, Absolute Lymphs (auto) 1.66, Nucleated RBC % 0, ESR 8 05/04/19 05:35: Sodium 138, Potassium 4.2, Chloride 105, Carbon Dioxide 29.0, Anion Gap 4 L, BUN 13, Creatinine 0.82, Estim Creat Clear Calc 82.26, Est GFR (MDRD) Af Amer 120, Est GFR (MDRD) Non-Af 99, BUN/Creatinine Ratio 15.9, Glucose 135 H, Calcium 9.0 Current Medications Acetaminophen (Tylenol) 1,000 mg PO Q8H PRN PRN PRN Reason: Pain Score 1-10/10 Last Admin: 04/30/19 11:47 Dose: 1,000 mg Documented by: Ascorbic Acid (Vitamin C) 1,000 mg PO BID [facility] Last Admin: 05/04/19 17:44 Dose: 1,000 mg Documented by: Aspir[facility], [facility]) [facility] Stop: 05/17/19 08:01 Last Admin: 05/04/19 17:50 Dose: 81 mg Documented by: Atorvastatin Calcium (Lipitor) 20 mg PO DAILY@1900 [facility] Last Admin: 05/04/19 19:45 Dose: Not Given Documented by: Bisacodyl (Dulcolax) 10 mg PO DAILY PRN PRN Reason: Constipation Ferrous Sulfate (Ferrous Sulfate) 325 mg PO DAILY@0800 [facility] Last Admin: 05/04/19 08:42 Dose: 325 mg Documented by: Heparin Sodium (Beef Lung) () 50 units IV UD PRN PRN Reason: PICC Line Heparin Flush Heparin Sodium (Beef Lung) () 50 units IV UD PRN PRN Reason: PICC Line Heparin Flush Ceftriaxone Sodium 2 gm/ (Sodium Chloride) 50 mls @ 100 mls/hr IV Q24 [facility] Stop: 05/28/19 11:00 Last Infusion: 05/04/19 11:30 Dose: Infused Documented by: Sodium Chloride () 250 mls @ 15 mls/hr IV .[id number] PRN PRN Reason: Saline Flush Last Infusion: 05/04/19 11:35 Dose: 0 mls/hr Documented by: Sodium Chloride () 250 mls @ 15 mls/hr IV .[id number] PRN PRN Reason: Additional IVPB Infusion Lactobacillus Acidophilus (Acidophilus) 1 tablet PO DAILY [facility] Last Admin: 05/04/19 06:39 Dose: 1 tablet Documented by: Losartan Potassium (Cozaar) 50 mg PO DAILY [facility] Last Admin: 05/04/19 06:39 Dose: 50 mg Documented by: Melatonin (Melatonin) 10 mg PO DAILY@1900 PRN PRN Reason: INSOMNIA Meloxicam (Mobic) 7.5 mg PO BID [facility] Last Admin: 05/04/19 17:44 Dose: 7.5 mg Documented by: Metformin [facility] (Glucophage) [facility] Last Admin: 05/04/19 17:42 Dose: 500 mg Documented by: Multivitamins/Minerals (Multivitamin With Minerals (Bkc)) [facility] Last Admin: 05/04/19 08:42 Dose: 1 tablet Documented by: Niacin (Niaspan) 500 mg PO BID [facility] Last Admin: 05/04/19 17:43 Dose: 500 mg Documented by: [id number] Ethyl Esters (Lovaza) 2 gm PO DAILY [facility] Last Admin: 05/04/19 06:39 Dose: 2 gm Documented by: Oxycodone HCl (Oxyir) 5 mg PO Q4H PRN PRN PRN Reason: Pain Score 1-10/10 Last Admin: 04/27/19 20:05 Dose: 5 mg Documented by: Polyethylene Glycol (Miralax) 17 gm PO DAILY [facility] Last Admin: 05/04/19 06:40 Dose: Not Given Documented by: Senna/Docusate Sodium (Senokot-S, Cynthia-Colace) 1 tablet PO BID [facility] Last Admin: 05/04/19 17:44 Dose: 1 tablet Documented by: Sodium Chloride () 10 - 40 ml IV UD PRN PRN Reason: Open End PICC Flush Last Admin: 05/04/19 19:44 Dose: 10 ml Documented by: Sodium Chloride (0.9% Nacl (Sterile) Posiflush) 10 - 40 ml IV UD PRN PRN Reason: Port access or dressing change Sodium Chloride () 10 - 40 ml IV UD PRN PRN Reason: Open End PICC Flush Last Admin: 04/25/19 11:32 Dose: 10 ml Documented by: Sodium Chloride (0.9% Nacl (Sterile) Posiflush) 10 - 40 ml IV UD PRN PRN Reason: Port access or dressing change Tizanidine HCl (Zanaflex) 4 mg PO TID PRN PRN PRN Reason: MUSCLE RELAXATION Discharge Diet: No Restrictions Discharge Activity: Return to Normal Activity, May Shower, Use Walker Call your doctor if you observe: Fever of 101 or Higher, Inability to urinate, Inability to have a bowel movement, Shortness of breath, Chest pain, Uncontrolled pain Home Medications: Medications to take at Discharge ascorbic acid (vitamin C) 1,000 mg tablet 1 g PO BID tab 03/15/19 atorvastatin 20 mg tablet 20 mg PO QHS 03/15/19 metformin 500 mg tablet 500 mg PO BID tab 03/15/19 niacin 500 mg tablet 500 mg PO BID 03/15/19 tizanidine 4 mg capsule 4 mg PO PRN PRN cap 03/15/19 L.acidoph,Paracasei, B.lactis [Probiotic] 1 ea PO DAILY 03/22/19 Multivit-Min/FA/Lycopen/Lutein [Centrum Silver Men Tablet] 1 ea PO DAILY 03/22/19 [place]-3 Fatty Acids/Fish Oil [Fish Oil 1,000 mg Capsule] 2 ea PO DAILY 03/22/19 Valsartan [Diovan] 160 mg PO DAILY 04/16/19 Acetaminophen [Tylenol] 1,000 mg PO Q8 04/19/19 Aspirin [Aspirin, Baby] 81 mg PO BID 04/19/19 Ceftriaxone 2 gm IV Q24 04/19/19 Meloxicam [Mobic] 7.5 mg PO BID 04/19/19 0.9 % NaCl (Sterile) Posiflush [0.9% NaCl (Sterile) Posiflush] 10 - 40 ml IV UD PRN disp.syrin 05/04/19 0.9 % NaCl (Sterile) Posiflush [0.9% NaCl (Sterile) Posiflush] 10 - 40 ml IV UD PRN disp.syrin 05/04/19 0.9% Saline Lock 10 - 40 ml IV UD PRN syringe 05/04/19 0.9% Saline Lock 10 - 40 ml IV UD PRN syringe 05/04/19 Ceftriaxone 2 gm IV Q24 vial 05/04/19 Ferrous Sulfate 325 mg PO DAILY@0800 #30 tab 05/04/19 Heparin Pf Lock 10 units/ml 50 units IV UD PRN syringe 05/04/19 Heparin Pf Lock 10 units/ml 50 units IV UD PRN syringe 05/04/19 Following Prescrptions Were Given to Patient: Ferrous Sulfate 325 mg PO DAILY@0800 #30 tab Transmission Status: Pending to [id number] Primary Care Physician: Noel Rudd [Primary Care Provider] - Please follow up with your Primary Care Physician in: 1 week. Please Follow Up With: elba Rodriguez When: 2 weeks. Please Follow Up With: Mariano Estrella MD When: 2 weeks. Disposition: Home with Home Health Minutes spent on discharge:: 35 Patient Condition:: Stable Medical Necessity - Tobacco Use Smoking Status: Former smoker Tobacco Use: Cigarettes Meaningful Use Info Meaningful Use Diagnoses (Choose all that apply): None applicable
[2019-05-05] MEDS: Acetaminophen 500 MG Tablet 1000 MG PO (01:34)
[2019-05-05] MEDS: Omega-3 Acid Ethyl Esters 1 GM Capsule 2 GM PO (06:21)
[2019-05-05 06:30] LABS: Bedside Glucose 146 mg/dL (70-110)
[2019-05-05] MEDS: Niacin SA 500 MG Tablet PO ×2 (06:33→18:04)
[2019-05-05] MEDS: Losartan Potassium 50 MG Tablet PO (06:33)
[2019-05-05] MEDS: Senna/Docusate Sodium 1 Tablet PO ×2 (06:33→18:04)
[2019-05-05] MEDS: Meloxicam 7.5 MG Tablet PO ×2 (06:33→18:03)
[2019-05-05] MEDS: Ascorbic Acid 500 MG Tablet 1000 MG PO ×2 (06:33→18:04)
[2019-05-05] MEDS: Multivitamins,Ther W-Minerals Tablet 1 TABLET PO (08:39)
[2019-05-05] MEDS: Ferrous Sulfate 325 MG Tablet PO (08:39)
[2019-05-05] MEDS: metFORMIN HCl 500 MG Tablet PO ×2 (09:39)
[2019-05-05] MEDS: Aspirin 81 MG TAB.CHEW PO ×2 (09:40→18:03)
[2019-05-05] MEDS: 0.9% Saline Lock 10 ML Syringe IV ×2 (10:16→20:46)
[2019-05-05 13:07] VITALS: RESP 18
[2019-05-05 14:33] VITALS: BP 127/67; PULSE 79; RESP 16; TEMP 36.8; O2SAT 97
--- NOTE | 2019-05-05 15:57 | CHAPLAIN ---
Type of Pastoral Visit ___ Initial Visit _x__ Follow-up Visit ___ On-call Visit ___ General Patient Visit ___ Spiritual Assessment ___ Family Conference ___ Bereavement ___ Rapid Response ___ Code Blue ___ Other (describe below) Pastoral Care Referral From _x__ Patient ___ Family ___ Nurse ___ Physician ___ Wood Preserving Plant Laborer ___ Ceramics Instructor ___ Other (describe below) Sacrament/Intervention _x__ Active listening ___ Anointing ___ Christianity ___ Bereavement ___ Communion ___ Yesi exploration ___ _x__ Life review _x__ Prayer ___ Reconciliation ___ Sacrament of Sick _x__ Supportive presence ___ Wedding ___ Other (describe below) Pastoral Comments
--- NOTE | 2019-05-05 16:14 | NURSING ---
pt has been removed from contact precautions, currently requesting picc line to be wrapped (using 2 rolls of blue tape) for independent shower,
[2019-05-05] MEDS: Atorvastatin Calcium 20 MG Tablet PO (18:06)
[2019-05-05] MEDS: oxyCODONE 5 MG Tablet PO (20:41)
[2019-05-06] MEDS: Niacin SA 500 MG Tablet PO ×2 (06:08→17:15)
[2019-05-06] MEDS: Losartan Potassium 50 MG Tablet PO (06:08)
[2019-05-06] MEDS: Ascorbic Acid 500 MG Tablet 1000 MG PO ×2 (06:08→17:13)
[2019-05-06] MEDS: Senna/Docusate Sodium 1 Tablet PO ×2 (06:08→17:14)
[2019-05-06] MEDS: Omega-3 Acid Ethyl Esters 1 GM Capsule 2 GM PO (06:09)
[2019-05-06] MEDS: Meloxicam 7.5 MG Tablet PO ×2 (06:09→17:14)
[2019-05-06 06:51] LABS: Bedside Glucose 192 mg/dL (70-110)
[2019-05-06] MEDS: Ferrous Sulfate 325 MG Tablet PO (08:08)
[2019-05-06] MEDS: Multivitamins,Ther W-Minerals Tablet 1 TABLET PO (08:08)
[2019-05-06] MEDS: metFORMIN HCl 500 MG Tablet PO ×2 (08:08→17:12)
[2019-05-06] MEDS: Aspirin 81 MG TAB.CHEW PO ×2 (08:08→17:13)
[2019-05-06] MEDS: 0.9% Saline Lock 10 ML Syringe IV ×2 (10:52→20:23)
[2019-05-06 15:20] VITALS: BP 105/61; PULSE 74; RESP 20; TEMP 36.7; O2SAT 94
[2019-05-06] MEDS: Atorvastatin Calcium 20 MG Tablet PO (17:12)
[2019-05-07 06:40] LABS: Bedside Glucose 173 mg/dL (70-110)
[2019-05-07] MEDS: Losartan Potassium 50 MG Tablet PO (06:47)
[2019-05-07] MEDS: Ascorbic Acid 500 MG Tablet 1000 MG PO ×2 (06:47→17:55)
[2019-05-07] MEDS: Meloxicam 7.5 MG Tablet PO ×2 (06:47→17:55)
[2019-05-07] MEDS: Senna/Docusate Sodium 1 Tablet PO ×2 (06:47→17:55)
[2019-05-07] MEDS: Omega-3 Acid Ethyl Esters 1 GM Capsule 2 GM PO (06:47)
[2019-05-07] MEDS: Niacin SA 500 MG Tablet PO ×2 (06:47→17:55)
--- NOTE | 2019-05-07 09:24 | CASEMGMT ---
Social Work BIMS and PHQ-9 completed for MDS assessment. Merry Figueredo, MANUFACTURING DESIGN ENGINEER EMERGENCY MANAGEMENT SPECIALIST
--- NOTE | 2019-05-07 09:30 | NURSING ---
PT OUT OF ROOM TO THERAPY VIA W/C. WILL PASS AM MEDS WHEN HE RETURNS TO ROOM,ONE IS IV ATB
[2019-05-07] MEDS: metFORMIN HCl 500 MG Tablet PO ×2 (09:54→17:55)
[2019-05-07] MEDS: Multivitamins,Ther W-Minerals Tablet 1 TABLET PO (09:54)
[2019-05-07] MEDS: Aspirin 81 MG TAB.CHEW PO ×2 (09:55→17:55)
[2019-05-07] MEDS: 0.9% Saline Lock 10 ML Syringe IV ×2 (09:56→20:02)
[2019-05-07] MEDS: Ferrous Sulfate 325 MG Tablet PO (09:57)
[2019-05-07 14:09] VITALS: BP 124/67; PULSE 76; RESP 16; TEMP 36.6; O2SAT 95
[2019-05-07] MEDS: Atorvastatin Calcium 20 MG Tablet PO (17:55)
[2019-05-08 05:25] LABS: Bedside Glucose 216 mg/dL (70-110)
[2019-05-08] MEDS: Acetaminophen 500 MG Tablet 1000 MG PO (06:15)
[2019-05-08] MEDS: Niacin SA 500 MG Tablet PO ×2 (06:16→18:24)
[2019-05-08] MEDS: Meloxicam 7.5 MG Tablet PO (06:17)
[2019-05-08] MEDS: Omega-3 Acid Ethyl Esters 1 GM Capsule 2 GM PO (06:17)
[2019-05-08] MEDS: Losartan Potassium 50 MG Tablet PO (06:17)
[2019-05-08] MEDS: Ascorbic Acid 500 MG Tablet 1000 MG PO ×2 (06:17→18:24)
[2019-05-08] MEDS: Senna/Docusate Sodium 1 Tablet PO ×2 (06:18→18:24)
[2019-05-08] MEDS: Aspirin 81 MG TAB.CHEW PO (08:50)
[2019-05-08] MEDS: Multivitamins,Ther W-Minerals Tablet 1 TABLET PO (08:50)
[2019-05-08] MEDS: oxyCODONE 5 MG Tablet PO ×3 (08:50→20:00)
[2019-05-08] MEDS: Ferrous Sulfate 325 MG Tablet PO (08:50)
[2019-05-08] MEDS: metFORMIN HCl 500 MG Tablet PO ×2 (08:50→18:24)
--- NOTE | 2019-05-08 10:03 | NURSING ---
Notified Dr. Kaplan of pt c/o pain to left hip and having difficulty moving. Received order for X-Ray and CT of the left hip. Dr. Kaplan also stated pt is to not discharge today. Dr. Raphael's office is to be notified on Friday to request an appointment as soon as possible. Orders repeated back, will add orders.
--- NOTE | 2019-05-08 11:05 | RAD_ITS ---
STUDY: X-RAY - PELVIS AND LEFT HIP REASON FOR EXAM: Male, 68 years old. left hip implant removed mid April due to infection, still having pain TECHNIQUE: 3 views of the pelvis and hip. COMPARISON: 04/16/2019 FINDINGS: There is a non-specific bowel gas pattern. There are atherosclerotic vascular calcifications of the pelvic arteries. There are multiple calcified phleboliths. There is soft tissue swelling of the lateral hip. Normal bilateral iliac wings, sacroiliac joints and visualized sacrum. Normal bilateral superior and inferior pubic rami. Normal pubic symphysis. Normal bilateral ischial tuberosities. There are degenerative changes of the right hip, stable. Left hip replacement is in stable alignment. Stable linear lucency of the proximal left femur just below the greater trochanter could represent a vascular channel or stress type fracture. RAD/HIP, UNI W/ Pelvis 2-3 Views IMPRESSION: 1. Lateral hip soft tissue swelling. 2. Stable appearance of left hip prosthesis. 3. Vascular channel versus a stress type fracture of the proximal left femur, stable. Electronically Signed: Stanton Muniz MD (Brooks) at 16:42 EST , Service support ,
[2019-05-08] MEDS: 0.9% Saline Lock 10 ML Syringe IV (12:24)
[2019-05-08 14:29] VITALS: BP 92/55; PULSE 70; RESP 16; TEMP 36.8; O2SAT 95
--- NOTE | 2019-05-08 15:18 | NURSING ---
Addendum entered by Elena Garcia 05/08/19 15:54: Patient called his and notified of transfer to ED. Original Note: Dr. Kaplan notified of CT impression. Received order to send pt to the ER. Order repeated back.
--- NOTE | 2019-05-08 15:24 | NURSING ---
Notified ED nurse of Dr. Kaplan ordering pt to go to ED.
--- NOTE | 2019-05-08 18:19 | NURSING ---
pt returned to TCU, Ed d/c instructions state pt has Hip contusion and a hematoma. He is to f/u with Dr Raphael in 3-5 days.
[2019-05-08] MEDS: Atorvastatin Calcium 20 MG Tablet PO (18:24)
[2019-05-09] MEDS: oxyCODONE 5 MG Tablet PO ×5 (01:04→20:08)
[2019-05-09] MEDS: 0.9% Saline Lock 10 ML Syringe IV ×3 (01:04→20:09)
[2019-05-09] MEDS: Omega-3 Acid Ethyl Esters 1 GM Capsule 2 GM PO (05:14)
[2019-05-09] MEDS: Niacin SA 500 MG Tablet PO ×2 (05:15→17:38)
[2019-05-09] MEDS: Senna/Docusate Sodium 1 Tablet PO ×2 (05:15→17:38)
[2019-05-09] MEDS: Losartan Potassium 50 MG Tablet PO (05:15)
[2019-05-09] MEDS: Ascorbic Acid 500 MG Tablet 1000 MG PO ×2 (05:15→17:38)
[2019-05-09 05:35] LABS: Bedside Glucose 186 mg/dL (70-110)
[2019-05-09] MEDS: Multivitamins,Ther W-Minerals Tablet 1 TABLET PO (08:12)
[2019-05-09] MEDS: metFORMIN HCl 500 MG Tablet PO ×2 (08:12→17:38)
[2019-05-09] MEDS: Ferrous Sulfate 325 MG Tablet PO (08:12)
[2019-05-09 13:30] VITALS: BP 136/76; PULSE 76; RESP 16; TEMP 36.2; O2SAT 92
[2019-05-09] MEDS: Atorvastatin Calcium 20 MG Tablet PO (17:38)
[2019-05-10] MEDS: oxyCODONE 5 MG Tablet PO (05:11)
[2019-05-10] MEDS: Losartan Potassium 50 MG Tablet PO (05:12)
[2019-05-10] MEDS: Senna/Docusate Sodium 1 Tablet PO (05:12)
[2019-05-10] MEDS: Ascorbic Acid 500 MG Tablet 1000 MG PO (05:12)
[2019-05-10] MEDS: Omega-3 Acid Ethyl Esters 1 GM Capsule 2 GM PO (05:12)
[2019-05-10] MEDS: Niacin SA 500 MG Tablet PO (05:13)
[2019-05-10 05:31] LABS: Bedside Glucose 144 mg/dL (70-110)
[2019-05-10] MEDS: metFORMIN HCl 500 MG Tablet PO (08:20)
[2019-05-10] MEDS: Ferrous Sulfate 325 MG Tablet PO (08:20)
[2019-05-10] MEDS: Multivitamins,Ther W-Minerals Tablet 1 TABLET PO (08:20)
--- NOTE | 2019-05-10 08:46 | CASEMGMT ---
Social Work Notified [facility] patient did not DC as scheduled. Will continue to follow. MIHAELA WilliamsonW
--- NOTE | 2019-05-10 09:09 | NURSING ---
Addendum entered by Britta Roman 05/10/19 11:35: returned from appt 1055 & no new orders, reported that it was a seroma to LT hip. pt requesting to go home. Original Note: Dr odonnell office notified of pt concern and hematoma to LT hip incision, appt made for this AM at 0945. here and transporting
[2019-05-10] MEDS: 0.9% Saline Lock 10 ML Syringe IV (11:06)
--- NOTE | 2019-05-10 11:23 | NURSING ---
dr brothers sending script to [facility] for oxyir today per pt request. since pt developed seroma over weekend he started using it again.
[2019-05-10 11:49] VITALS: BP 104/53; PULSE 79; RESP 18; TEMP 36.6; O2SAT 98
== END 2019-05-10 12:05 | disposition home health service (06) | DRG 949 ==
PROVIDERS: Admitting Provider Family Medicine Geriatric Medicine; PCP Family Medicine; Visit Provider Family Medicine Geriatric Medicine
DX: T84.52XD Infection and inflammatory reaction due to internal left hip prosthesis, subsequent encounter (principal); M00.252 Other streptococcal arthritis, left hip; B95.4 Other streptococcus as the cause of diseases classified elsewhere; Y79.2 Prosthetic and other implants, materials and accessory orthopedic devices associated with adverse incidents; E78.5 Hyperlipidemia, unspecified; I10 Essential (primary) hypertension; E11.9 Type 2 diabetes mellitus without complications; M19.90 Unspecified osteoarthritis, unspecified site; Z87.891 Personal history of nicotine dependence; E61.1 Iron deficiency
CPT/HCPCS: 36415; 73502; 80048; 82962; 85025; 85652; 87506; 97110; 97116; 97162; 97166; 97530; 97535; 97802; J7030; J7050; A4216; J0696

== ENCOUNTER 2019-05-08 15:32 | Emergency (ER) | payer MEDICARE, OTHER, SELFPAY ==
[2019-05-08 15:34] VITALS: BP 164/79; PULSE 90; RESP 16; TEMP 36.5; O2SAT 99; BMI 29.6
--- NOTE | 2019-05-08 16:22 | ED.DCSUM_ITS ---
- ER Visit Summary Date of Service: 05/08/19 Chief Complaint: Left hip pain History of Present Illness: The patient is a 68 M who presents with left hip pain that began today. Patient states the pain began rather suddenly this morning. Patient describes it as aching. Patient denies any trauma. Patient s tates he took Tylenol this morning with no improvement. Patient states he was also given OxyIR which helped with his pain. Patient states his pain is worse with certain movements. Patient denies any fevers or chills. Patient denies any paresthesias or weakness. Patient recently had replacement of his left total hip prosthesis with antibiotic spacer. Patient denies any chest pain or shortness of breath. Physical Examination: Vital signs are stable. Patient is afebrile. Patient is in no acute distress. Skin is warm dry. There is no erythema or warmth. The incision is healing well. There is a edema under the incision. There is no erythema or warmth. There is some mild tenderness over this area. Range of motion was slightly limited in internal rotation secondary to pain. Heart was regular rate and rhythm. Lungs are clear and equal bilaterally. Abdomen is soft and nontender. Test Results: Patient had a x-ray and CT scan of his left hip done earlier today. CT scan shows a likely hematoma. Abscess is less likely. CBC, metabolic profile, sed rate and CRP were obtained. CRP is slightly elevated at 7.35. Hemoglobin is stable at 9.5. Glucose was slightly elevated at 324. The remaining labs are within normal limits. Emergency Department Course and Treatment: Patient was feeling better on reevaluation. Patient was advised of his results. Case was discussed with Dr. Newsome from orthopedics. He wants the patient to follow-up with Dr. Raphael this week. Patient will be discharged back to the TCU today. Patient understood and was agreeable with the plan. All questions were answered. Disposition: Discharged to TCU Impression: 1. Left hip hematoma This note was generated with [employer] dictation software. It may contain incorrect words, spelling, and punctuation that were not noted in review of the chart prior to signing ED Disposition - Plan for ED Patient: Disposition: [facility] Facility Diagnosis: Hip hematoma, left Instructions: Hematoma, Hip Contusion Referrals: Noel Rudd [Primary Care Provider] - Arsenio Raphael MD [STAFF PHYSICIAN] - 3-5 Days Additional Instructions: Use ice to the left hip. Follow-up with Dr. Raphael this week.
[2019-05-08 16:45] LABS: Absolute Lymphocyte Count 1.19 X10^3/uL (0.83-4.51); Absolute Neutrophil Count 4.5 X10^3/uL (2.0-7.7); Basophil# 0.02 X10^3/uL; Basophil% 0.3 % (0-1); Eosinophil# 0.27 X10^3/uL; Hematocrit 29.8 % (40-54); Hemoglobin 9.5 g/dL (13.0-16.5); Lymphocyte # 1.19 X10^3/ul (4.0); Lymphocyte % 17.6 % (19-41); Mean Corp Hgb Conc 31.9 g/dL (32-36); Mean Corpuscular Hgb 29.7 pg (27.0-32.0); Mean Corpuscular Volume 93.1 fL (80-94); Mean Platelet Vol. 10.1 fl (6.2-12.0); Monocyte# 0.79 X10^3/uL; Monocyte% 11.7 % (0-10); NRBC Flagged by Analyzer 0 % (0-5); Neutrophil # 4.47 X10^3/uL (2.7-7.7); Platelet Count 180 K/mm3 (150-450); RBC Distribution Width CV 15.1 % (11.6-14.6); RBC Distribution Width SD 51.3 fl (35.1-43.9); White Blood Count 6.8 K/mm3 (4.4-11.0)
[2019-05-08 16:50] LABS: Erythrocyte Sedimentation Rate 3 mm/hr (0-20)
[2019-05-08 16:55] LABS: Anion Gap 6 (5-15); BUN 22 mg/dL (7-18); BUN/Creat Ratio 20.6 RATIO (10-20); CRP 7.35 mg/L (0.0-3.0); Calcium,Total 8.7 mg/dL (8.5-10.1); Chloride 97 mmol/L (98-107); Creatinine, Serum 1.07 mg/dL (0.70-1.30); EST Glomerular Filtration Rate 73 mL/min (>60); Est Glom Filt Rate - Afr Amer 88 mL/min (>60); Estimated Creatinine Clearance 63.04 ml/min; Glucose 324 mg/dL (74-106); Potassium 4.3 mmol/L (3.5-5.1); Sodium Level 133 mmol/L (136-145)
[2019-05-08 17:35] VITALS: BP 109/54; PULSE 78; RESP 16; O2SAT 96
--- NOTE | 2019-05-08 17:35 | ED.RN ---
NOT SCREENING FOR SEPSIS, SUSPECTED MASS
--- NOTE | 2019-05-08 17:58 | ED.RN ---
REPORT CALLED TO TCU NURSE SHAHAB.
== END 2019-05-08 18:03 | disposition skilled nursing facility (03) ==
PROVIDERS: Emergency Provider Emergency Medicine; PCP Family Medicine
DX: S70.02XA Contusion of left hip, initial encounter (principal); Z96.642 Presence of left artificial hip joint; M25.552 Pain in left hip; E11.65 Type 2 diabetes mellitus with hyperglycemia; I10 Essential (primary) hypertension; E78.00 Pure hypercholesterolemia, unspecified; Z87.891 Personal history of nicotine dependence; Z79.1 Long term (current) use of non-steroidal anti-inflammatories (NSAID); Z79.82 Long term (current) use of aspirin; Z79.01 Long term (current) use of anticoagulants; Z79.84 Long term (current) use of oral hypoglycemic drugs; Z79.899 Other long term (current) drug therapy; X58.XXXA Exposure to other specified factors, initial encounter; Y93.89 Activity, other specified; Y92.89 Other specified places as the place of occurrence of the external cause; Y99.8 Other external cause status
CPT/HCPCS: 36592; 73702; 80048; 85025; 85652; 86140; 99282; Q9967; A4216

== ENCOUNTER → 2019-05-08 | Outpatient (CLI) | payer MEDICARE, OTHER, SELFPAY ==
[2019-04-19 14:05] VITALS: BMI 29.8
--- NOTE | 2019-05-08 11:09 | CT_ITS ---
STUDY: CT SCAN OF THE LEFT HIP WITHOUT CONTRAST REASON FOR EXAM: Male, 68 years old. Left hip pain today with deformity, no injury, s/p left hip antibiotic spacer 04/16/19. RADIATION DOSAGE (If Supplied By Facility): CTDIvol = ( 16.52 ) mGy, DLP = ( 1535.43 ) mGycm. Individualized dose optimization techniques were used for this CT.? TECHNIQUE: Multiple axial cuts were obtained through the region of the left hip without intravenous contrast infusion. Sagittal and coronal reconstruction images were obtained. COMPARISON: None. FINDINGS: There is partial left hip arthroplasty. There is no evidence of fracture or dislocation. There is separation of the greater trochanter. There is a large soft tissue mass in the subcutaneous fat of the left hip lateral to the muscular structures measuring about 6.5 x 7 x 15 cm. There is also soft tissue density/hematoma posterior to the hip prosthesis. There is stranding in the anterior subcutaneous fat. CT/Extremity Lower W/WO Contrast IMPRESSION: Status post left hip arthroplasty. Large soft tissue mass lateral to the left hip as described above which could represent hematoma. Abscess and this likely. No demonstrated acute fracture. Electronically Signed: Don De Los Santos MD at 12:56 EST Tel , Service support ,
== END | disposition home or self-care (01) ==
PROVIDERS: PCP Family Medicine; Referring Provider Family Medicine Geriatric Medicine; Visit Provider Family Medicine Geriatric Medicine
DX: M25.552 Pain in left hip (principal)
CPT/HCPCS: 73702; Q9967; A4216

== ENCOUNTER → 2019-07-08 | Outpatient (CLI) | payer MEDICARE, OTHER, SELFPAY ==
[2019-07-08 12:47] LABS: Erythrocyte Sedimentation Rate 13 mm/hr (0-20)
[2019-07-08 12:49] LABS: Absolute Lymphocyte Count 2.06 X10^3/uL (0.83-4.51); Absolute Neutrophil Count 5.4 X10^3/uL (2.0-7.7); Basophil# 0.03 X10^3/uL; Basophil% 0.4 % (0-1); Eosinophil# 0.15 X10^3/uL; Eosinophils% 1.8 % (0-5); Hematocrit 41.2 % (40-54); Hemoglobin 13.4 g/dL (13.0-16.5); Lymphocyte # 2.06 X10^3/ul (4.0); Lymphocyte % 24.2 % (19-41); Mean Corp Hgb Conc 32.5 g/dL (32-36); Mean Corpuscular Hgb 28.9 pg (27.0-32.0); Mean Corpuscular Volume 88.8 fL (80-94); Mean Platelet Vol. 10.7 fl (6.2-12.0); Monocyte# 0.81 X10^3/uL; Monocyte% 9.5 % (0-10); NRBC Flagged by Analyzer 0 % (0-5); Neutrophil # 5.43 X10^3/uL (2.7-7.7); Neutrophil % 63.9 % (47-70); Platelet Count 194 K/mm3 (150-450); RBC Distribution Width CV 13.1 % (11.6-14.6); RBC Distribution Width SD 42.3 fl (35.1-43.9); Red Blood Count 4.64 M/mm3 (4.6-6.2); White Blood Count 8.5 K/mm3 (4.4-11.0)
[2019-07-08 13:13] LABS: CRP 4.72 mg/L (0.0-3.0)
== END | disposition home or self-care (01) ==
PROVIDERS: PCP Family Medicine; Referring Provider Specialist; Visit Provider Specialist
DX: T84.52XD Infection and inflammatory reaction due to internal left hip prosthesis, subsequent encounter (principal)
CPT/HCPCS: 36415; 85025; 85652; 86140

== ENCOUNTER → 2019-07-22 09:24 | Outpatient (CLI) | payer MEDICARE, OTHER, SELFPAY ==
--- NOTE | 2019-07-22 09:43 | MRI_ITS ---
STUDY: MRI LEFT HIP WITH AND WITHOUT CONTRAST REASON FOR EXAM: Postop seroma, infection/inflammation from left hip prosthesis. TECHNIQUE: Standardized fat and water weighted pulse sequences were obtained in all 3 orthogonal planes before and after intravenous administration of 19 mL of Dotarem. COMPARISON: CT images 05/08/2019 and radiographs 05/08/2019. FINDINGS: There is metallic artifact from left femoral prosthesis. There is a fluid collection superior to the greater trochanter and inferior to the retracted left gluteal tendons (inversion recovery coronal images 9-14; inversion recovery axial images 4-21) measuring 3.6 x 5.3 x 12.8 cm (AP x transverse x length). There is contrast enhancement of the wall of the fluid collection (postcontrast T1 axial images 6-24) and therefore most suggestive of a soft tissue abscess. There is edema in the adjacent subcutis adipose space. Normal visualized left superior and inferior pubic rami. Normal pubic symphysis. Normal left ischial tuberosity. Normal origin of the left hamstring tendons. MRI/Lower Ext Joint Only W/WO Cont IMPRESSION: Fluid collection superior to the greater trochanter with contrast enhancement of the wall and therefore most suggestive of a soft tissue abscess. Electronically Signed: Aleksey Mcclure MD at 13:09 EDT Tel , Service support ,
[2019-07-22 09:50] LABS: Absolute Lymphocyte Count 2.23 X10^3/uL (0.83-4.51); Absolute Neutrophil Count 5.7 X10^3/uL (2.0-7.7); Basophil# 0.02 X10^3/uL; Basophil% 0.2 % (0-1); Eosinophil# 0.16 X10^3/uL; Eosinophils% 1.8 % (0-5); Hematocrit 41.8 % (40-54); Hemoglobin 13.9 g/dL (13.0-16.5); Lymphocyte # 2.23 X10^3/ul (4.0); Lymphocyte % 25.1 % (19-41); Mean Corp Hgb Conc 33.3 g/dL (32-36); Mean Corpuscular Hgb 29.1 pg (27.0-32.0); Mean Corpuscular Volume 87.4 fL (80-94); Mean Platelet Vol. 9.8 fl (6.2-12.0); Monocyte# 0.79 X10^3/uL; Monocyte% 8.9 % (0-10); NRBC Flagged by Analyzer 0 % (0-5); Neutrophil # 5.67 X10^3/uL (2.7-7.7); Neutrophil % 63.7 % (47-70); Platelet Count 209 K/mm3 (150-450); RBC Distribution Width SD 41.5 fl (35.1-43.9); Red Blood Count 4.78 M/mm3 (4.6-6.2); White Blood Count 8.9 K/mm3 (4.4-11.0)
[2019-07-22 09:57] LABS: Erythrocyte Sedimentation Rate 13 mm/hr (0-20)
[2019-07-22 10:10] LABS: CRP 5.61 mg/L (0.0-3.0); Creatinine, Serum 0.84 mg/dL (0.70-1.30); EST Glomerular Filtration Rate 97 mL/min (>60); Est Glom Filt Rate - Afr Amer 117 mL/min (>60)
== END ==
PROVIDERS: PCP Family Medicine; Referring Provider Specialist; Visit Provider Specialist
DX: T84.52XD Infection and inflammatory reaction due to internal left hip prosthesis, subsequent encounter (principal); M96.842 Postprocedural seroma of a musculoskeletal structure following a musculoskeletal system procedure; N28.9 Disorder of kidney and ureter, unspecified
CPT/HCPCS: 36415; 73723; 82565; 85025; 85652; 86140; A9575

== ENCOUNTER → 2019-07-28 13:20 | Outpatient (CLI) | payer MEDICARE, OTHER, SELFPAY ==
[2019-07-28 13:40] LABS: Absolute Neutrophil Count 4.6 X10^3/uL (2.0-7.7); Basophil# 0.02 X10^3/uL; Basophil% 0.2 % (0-1); Eosinophils% 2.4 % (0-5); Hematocrit 40.8 % (40-54); Hemoglobin 13.5 g/dL (13.0-16.5); Lymphocyte % 31.7 % (19-41); Mean Corp Hgb Conc 33.1 g/dL (32-36); Mean Corpuscular Hgb 28.9 pg (27.0-32.0); Mean Corpuscular Volume 87.4 fL (80-94); Mean Platelet Vol. 10.2 fl (6.2-12.0); Monocyte# 0.71 X10^3/uL; Monocyte% 8.7 % (0-10); NRBC Flagged by Analyzer 0 % (0-5); Neutrophil # 4.64 X10^3/uL (2.7-7.7); Neutrophil % 56.8 % (47-70); Platelet Count 202 K/mm3 (150-450); RBC Distribution Width CV 13.1 % (11.6-14.6); RBC Distribution Width SD 41.3 fl (35.1-43.9); Red Blood Count 4.67 M/mm3 (4.6-6.2); White Blood Count 8.2 K/mm3 (4.4-11.0)
[2019-07-28 13:59] LABS: Erythrocyte Sedimentation Rate 15 mm/hr (0-20)
[2019-07-28 14:06] LABS: CRP 5.27 mg/L (0.0-3.0)
== END ==
PROVIDERS: PCP Family Medicine; Referring Provider Specialist; Visit Provider Specialist
DX: T84.52XD Infection and inflammatory reaction due to internal left hip prosthesis, subsequent encounter (principal)
CPT/HCPCS: 36415; 85025; 85652; 86140

== ENCOUNTER 2019-08-11 09:52 | Inpatient (IN) | payer MEDICARE, OTHER, SELFPAY ==
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
[2019-08-06 09:40] LABS: Anion Gap 9 (5-15); BUN 19 mg/dL (7-18); BUN/Creat Ratio 23.1 RATIO (10-20); Calcium,Total 9.2 mg/dL (8.5-10.1); Chloride 96 mmol/L (98-107); Creatinine, Serum 0.82 mg/dL (0.70-1.30); EST Glomerular Filtration Rate 99 mL/min (>60); Est Glom Filt Rate - Afr Amer 119 mL/min (>60); Glucose 139 mg/dL (74-106); Potassium 4.2 mmol/L (3.5-5.1); Sodium Level 131 mmol/L (136-145)
[2019-08-06 09:59] LABS: Hemoglobin A1c 7.4 % (3.8-5.6)
[2019-08-11] VITALS (10 sets, daily range): BP systolic 129–166; BP diastolic 54–91; PULSE 65–75; RESP 15–16; TEMP 36.1–36.6; O2SAT 98–100; BMI 30.8
[2019-08-11 10:21] LABS: Bedside Glucose 225 mg/dL (70-110)
[2019-08-11] MEDS: Gabapentin 600 MG Tablet PO (10:33)
[2019-08-11] MEDS: Scopolamine 1mg/72hr Patch 1 PATCH TRANSDERM. (10:34)
[2019-08-11] MEDS: Acetaminophen 500 MG Tablet 1000 MG PO ×2 (10:34→22:21)
[2019-08-11] MEDS: Lactated Ringers 1,000 ML 999 ML IV (10:36)
[2019-08-11] MEDS: Lactated Ringers 1,000 ML 75 ML IV ×2 (10:51→16:00)
[2019-08-11] MEDS: Insulin Lispro 100 UNIT/ML INSULN.PEN SC ×2 (11:26→22:24)
[2019-08-11] MEDS: Lactated Ringers 1,000 ML 125 ML IV (11:35)
--- NOTE | 2019-08-11 13:07 | PCM.OPRPT ---
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 Left displaced greater trochanteric fracture. 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 Left displaced greater trochanteric fracture. Surgery/Procedure Performed:: 1. Left hip removal of antibiotic spacer and revision hip replacement acetabular and femoral components. 2. Left hip open reduction internal fixation greater trochanteric fracture Description of Surgical Findings:: Stable hip with equal leg lengths. No signs of gross infection. Greater trochanteric fragment was repaired using #5 FiberWire. government affairs director: Chi Schneider government affairs director: Brenda Rossi Type of Anesthesia:: Spinal Anesthesiologist: Asa Crisostomo Special Medications: 2 g Ancef, 1 g TXA at incision, 1 g TXA closure, 10 mg Decadron, joint cocktail (5 mg Duramorph, 30 mL of 0.5% Ropivicaine, 1000 units of epinephrine, 30 mg of Toradol) Specimen's removed: 3 separate specimens were sent to microbiology Estimated Blood Loss (mL): 500 Fluids Replaced: 1700 mL crystalloid, 250 mL of Cell Saver reinfused Description of Procedure: Findings: Adequate reduction with stability of the hip and equal leg lengths measured intraoperatively. Components used: 1. Femur: Reubens roman catholic modular 17mm x 155 millimeters stem. 23 mm, +10 mm cone body. 2. Acetabulum: Reubens 54 mm alpha code E with MDM liner 3. Edin X3 polyethylene liner, MDM outer head 2848 4. Edin Biolox delta 28 mm, +4 mm neck femoral head Brief history operative indications: 69-year-old male who previously had irrigation debridement and antibiotic spacer placement for PJ I presented to my office after completion of his antibiotics. Follow-up lab work showed no continued infection. We also did a MRI to verify that the sinus tract in his thigh had resolved which he did. At this time we did discuss proceeding with the revision hip replacement. Risks and benefits were discussed with the patient which included but were not limited to blood loss, DVTs, PEs, infection, neurovascular damage, and dislocation. In light of all this patient did agree to proceed with a revision left total hip arthroplasty. Procedure: On the date of procedure the patient's L hip was marked in the preoperative area. Patient was then taken back to the operating room where anesthesia assumed control of the C-spine and airway and administered anesthetic. Patient was transferred to the operating table and placed in the lateral decubitus position with the affected hip up. The patient was secured in the bed with the lateral positioners and leg lengths were checked. The L lower extremity was then prepped out in a sterile fashion using chlorhexidine while the surgeon scrubbed. Upon reentering the room the L lower extremity was draped in the standard orthopedic fashion and the incision was marked. A timeout was called and everyone agreed upon the side, the site, the procedure be performed, antibiotics given, and patient's identity. At this time incision was made through skin, subcutaneous tissue, and fat down to fascia. The fascia was then incised and a Charley retractor was placed. At this time it was noted that theRE was a significant seroma which was evacuated. We made clear fascial layers. Once we evacuated the seroma a synovectomy was performed. The hip was dislocated we did identify the greater trochanteric fragment which had proximal lysed. This was freed up with the remaining attachments of the abductors left alone. Bone ends roughened proximally distally down to good bleeding bone. Attention was then turned to the femur where the femoral component was extracted. Femoral head was first removed. Then the extractor was placed in the femoral component. Cement mantle was then completely debrided using osteotomes and reamers. Once this was done we sequentially reamed up to 18 mm. We did send femoral canal synovium for culture. Once we had adequately prepared the femoral shaft we directed our attention to the acetabulum. Our attention was then directed to the acetabulum and the anterior retractor was placed and a Zelpi was used to retract the posterior capsule superiorly. The acetabular component and cement mantle were removed using an osteotome. Once we debrided this we sent synovium from behind the acetabulum for culture. We then proceeded to ream the acetabulum was then sequentially to 54 millimeters. Debriding and preparing the bone. After both parts of bone were adequately prepped the wound was copiously irrigated out with 6 L of normal saline under low-pressure lavage. Once we adequately irrigated out the joint chlorhexidine solution was used to irrigate followed by normal saline. At this time a and 54 mm Reubens Trident 2 cup was opened and impacted into place. Once it was securely fastened our attention was again turned towards the femur where the 18 mm stem was impacted into place. We then reamed the proximal portion to the templated 23 mm cone body. Trial cone body with a +10 height was put into place. Hip was reduced and leg lengths were equal with stability. At this time based on the patient's body habitus we elected to repair the greater trochanteric fracture using #5 FiberWire suture and bone tunnels. Bone tunnels were made and the suture was passed. 2 sutures were used. At this time the hip was dislocated. The proximal femur was again exposed and the trial components were removed from the wound. The final components were verified and opened. The wound was copiously irrigated out with normal saline. The acetabulum was checked for any residual debris. The final components were placed and impacted. Traction and external rotation were again used to reduce the hip. After adequate reduction the hip remained stable with appropriate leg lengths. A sliding knot was used to tighten both down sequentially. Hip was taken through range of motion and the repair was stable. After both were adequately tightened compressing the bone The wound was then copiously irrigated with normal saline once more, and hemostasis was obtained. The posterior structures were not repairable. Closure was then done using #1 Vicryl to close the fascia. A 2-0 Vicryl interrupted sutures were used to close the subcutaneous skin. Skin eh were used for final skin closure. A sterile dressing was placed. Patient was awakened by anesthesia and transferred to the [facility]. Patient was then transferred to the PACU for recovery. Postoperative plan: Patient will get 24 hours postop antibiotics. Patient will get in-house physical therapy and will be weight-bear as tolerated. Patient will follow up in office in 2 weeks for a wound check and x-rays. Patient will receive 1 week of doxycycline as we follow intraoperative cultures. Patient will follow strict posterior hip precautions and will not be allowed abduction for a total of 6 weeks due to the greater trochanteric repair. During the course of the procedure the physician anesthesiology physician (PE) played a vital role. Their intimate knowledge of my steps in the procedure aided in safe and expedient completion of the procedure. The PE played a vital rolls in positioning particularly in obtaining the appropriate positioning of the lateral decubitus position. The PE was also vital in the retraction of soft tissues during the exposure and especially the femoral work as this is a vital part of the procedure to prevent complications and fractures. The PE was also vital and protecting soft tissues during times of bony cuts and reaming. He also played a vital role in closure with my direct supervision. The PE was also important during reduction and dislocation of the joint and trials intraoperatively. Grafts/Implants Used: Reubens roman catholic modular - Complications No intraoperative complications - Admit VTE Documentation VTE Present on Admission: No VTE Mechan Device Prophylaxis: SCD's, Thigh High ALEXANDRA Hose VTE Pharm Prophylaxis ordered?: Yes
[2019-08-11] MEDS: Cefazolin 2 GM in 0.9% Normal Saline 100 ML IV (13:08)
[2019-08-11] MEDS: Scopolamine 1mg/72hr Patch 1 PATCH TD (13:15)
[2019-08-11] MEDS: Heparin 10,000 UNITS/10 ML Vial 10000 UNITS (14:00)
--- NOTE | 2019-08-11 16:19 | RAD_ITS ---
STUDY: X-RAY - PELVIS AND LEFT HIP REASON FOR EXAM: Male, 69 years old. Postop from redo of a left hip replacement TECHNIQUE: 3 views of the pelvis and hip. COMPARISON: None. FINDINGS: Patient is status post redo of a left hip replacement. The components demonstrate anatomic alignment. There is no plain film evidence of postoperative complication. Normal postoperative soft tissue swelling and subcutaneous emphysema noted. 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 RAD/Hip Min 2 Views (Portable) IMPRESSION: Redo of a replaced left hip joint demonstrates anatomic alignment. No plain film evidence of postoperative complication Electronically Signed: Reese Leonardo MD at 16:37 EDT , Service support ,
[2019-08-11 16:46] LABS: Bedside Glucose 183 mg/dL (70-110)
[2019-08-11] MEDS: metFORMIN HCl 500 MG Tablet PO (18:18)
[2019-08-11] MEDS: oxyCODONE 5 MG Tablet PO ×2 (18:19→22:35)
--- NOTE | 2019-08-11 18:21 | PN_ITS ---
Subjective: Patient is a 69-year-old male with an extensive medical history as outlined was admitted to the orthopedic service for removal of left hip antibiotic spacer with conversion to left hip arthroplasty. He had said procedure on 08/11/2019. Hospitalist service was consulted for medical management of diabetes and hypertension. Patient seen after procedure. He had no complaints and felt well. Review of systems otherwise negative. He had had a left total hip arthroplasty in 2011 at the [facility] and subsequently developed a hematoma in 2017 to the left thigh. He had irrigation and debridement of an inner thigh abscess in July 2018 and again in January 2019 and was treated with a wound VAC subsequently. 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 He had left hip arthroplasty with removal of left hip antibiotic spacer today. Review of systems otherwise negative. Vitals/I&O's: Vital Signs Temp Pulse Resp BP Pulse Ox 97.9 F 70 16 155/75 H 100 08/11/19 17:44 08/11/19 17:44 08/11/19 17:44 08/11/19 17:44 08/11/19 17:44 Oxygen Flow Rate (L/min) 6 Oxygen Delivery Method Room Air Weight: 202 lb 13.204 oz Body Mass Index (BMI) 30.8 Finger Stick Blood Glucose 183 Intake and Output for Last 24 Hours 08/09/19 08/10/19 08/11/19 23:59 23:59 23:59 Intake Total 3570 / 3570 Balance 3570 / 3570 General: Alert, Oriented x3, Cooperative, No apparent distress HEENT: Atraumatic, PERRLA, EOMI, Normocephalic Oral: Moist Mucosa Neck: Supple, No JVD, Negative Carotid Bruits Lungs: Clear to auscultation, Normal air movement, No rhonchi, No wheeze, No rales Cardiovascular: Regular rate, Regular Rhythm, Normal S1, Normal S2, No murmurs Abdomen: Bowel Sounds Present, Soft, Non Tender, Non-Distended, No Hepato- splenomegaly Extremities: No clubbing, No cyanosis, No edema, Capillary Refill Less than 3 Seconds Skin: - - left hip dressing in place Musculoskeletal: No Tenderness to Palpation of Joints or Extremities Lymphatic: No Cervical, Supraclavicular, or Inguinal Adenopathy Neurological: Cranial nerves II-XII grossly intact, Neuro grossly intact, Motor Exam 5/5 strength throughout Psych/Mental Status: Normal Affect, Appropriate, Alert and oriented to time, place, person, mood and affect Laboratory Results 08/11/19 10:15: POC Glucose 225 H 08/11/19 16:39: POC Glucose 183 H Current Medications Acetaminophen (Tylenol) 1,000 mg PO Q8 [facility] Ascorbic Acid (Vitamin C) 1,000 mg PO BID [facility] Aspirin (Aspirin, Baby) [facility] Atorvastatin Calcium (Lipitor) 20 mg PO QHS [facility] Cholecalciferol (Vitamin D (25mcg)) 1,000 unit PO DAILY [facility] Doxycycline Monohydrate (Doxycycline) 100 mg PO BID [facility] Enteral Nutritional Formula (Ensure Surgery) 237 ml PO TIDCM [facility] Famotidine (Pepcid) 20 mg PO DAILY [facility] Ferrous Sulfate (Ferrous Sulfate) 325 mg PO DAILY@0800 [facility] Lactated Ringer's () 1,000 mls @ 75 mls/hr IV .[id number] [facility] Last Admin: 08/11/19 16:00 Dose: 75 mls/hr Documented by: Cefazolin Sodium () 1 gm in 50 mls @ 150 mls/hr IV Q8H [facility] Stop: 08/12/19 05:19 Insulin Human Lispro (Humalog Kwikpen (Bkc)) 1 - 6 unit SC Q4H PRN PRN; Protocol PRN Reason: BG>/= 180, SEE PROTOCOL Last Admin: 08/11/19 11:26 Dose: 2 units Documented by: Ketorolac Tromethamine (Toradol (Bkc)) 15 mg IV Q6H PRN PRN PRN Reason: Pain Score 1-5/10 Stop: 08/12/19 18:01 Lactobacillus Acidophilus (Acidophilus) 1 tablet PO DAILY [facility] Losartan Potassium (Cozaar) 50 mg PO DAILY [facility] Meloxicam (Mobic) 7.5 mg PO BID [facility] Metformin HCl (Glucophage) 500 [facility] Morphine Sulfate () 2 - 4 mg IV Q2H PRN PRN PRN Reason: Pain Score 4-10/10 Niacin (Niacin Sr) 500 mg [facility] Non-Formulary Medication (Tizanidine Hcl) 4 mg PO PRN PRN PRN Reason: muscle relaxation Ondansetron HCl (Zofran) 4 mg IV Q8H PRN PRN PRN Reason: NAUSEA Oxycodone HCl (Oxyir) 5 - 10 mg PO Q4H PRN PRN PRN Reason: Pain Score 4-10/10 Promethazine HCl (Phenergan) 12.5 mg IM Q6H PRN PRN; Protocol PRN Reason: NAUSEA/VOMITING Senna/Docusate Sodium (Senokot-S, Cynthia-Colace) 2 tablet PO BID [facility] Sodium Chloride () 10 - 40 ml IV UD PRN PRN Reason: SALINE FLUSH STROKE Vital Signs/Narrative: Vital Signs Temp Pulse Resp BP Pulse Ox 08/11/19 17:44 97.9 F 70 16 155/75 H 100 08/11/19 17:09 97.5 F L 72 16 132/87 H 100 08/11/19 17:00 75 16 142/75 H 100 08/11/19 16:45 65 16 139/75 H 100 08/11/19 16:30 74 16 149/76 H 100 08/11/19 16:15 71 16 166/80 H 100 08/11/19 16:04 97.2 F L 72 16 147/54 H 100 Medical Necessity - Tobacco Use Smoking Status: Former smoker Tobacco Use: Non-smoker Assessment/Plan All Active Problems (Last Reviewed 03/17/19 @ 18:[address] Chavo Alcala MD) Debility (Acute) Infected prosthesis of left hip (Acute) 1. Left hip antibiotic spacer overall with conversion to left total hip arthroplasty * Days postop day 0. * Pain is well controlled. Management as per orthopedic surgery. * * Encourage incentive spirometry. PT OT on board. Fall precautions. * 2. Type 2 diabetes mellitus: On metformin 500 mg twice daily. Insulin sliding scale. Accu-Cheks AC at bedtime. 3. Hypertension: On valsartan. IV hydralazine PRN. 4. Hyperlipidemia: On atorvastatin. * DVT prophylaxis: As per orthopedic surgery the primary team. Thank you for the courtesy of the consult. We will continue to follow with you. Please do not hesitate to reach out if you have any questions. Inpatient E&M: 14135 Subs Hosp L2
[2019-08-11] MEDS: Cefazolin 1 GM/50 ML BAG IV (20:26)
[2019-08-11] MEDS: 0.9% Saline Lock 10 ML Syringe IV ×2 (20:32→22:30)
[2019-08-11] MEDS: Morphine 2 MG/ML Syringe IV (20:39)
[2019-08-11] MEDS: Ascorbic Acid 500 MG Tablet 1000 MG PO (22:20)
[2019-08-11] MEDS: Senna/Docusate Sodium 1 Tablet 2 TABLET PO (22:21)
[2019-08-11] MEDS: Doxycycline 100 MG CAPSULE PO (22:21)
[2019-08-11] MEDS: Atorvastatin Calcium 20 MG Tablet PO (22:21)
[2019-08-11] MEDS: Aspirin 81 MG TAB.CHEW PO (22:21)
[2019-08-11] MEDS: Ketorolac 15 MG/ML Vial IV (22:30)
[2019-08-11 23:21] LABS: Bedside Glucose 189 mg/dL (70-110)
[2019-08-12 01:44] VITALS: BP 138/72; PULSE 71; RESP 16; TEMP 36.7; O2SAT 98
[2019-08-12] MEDS: Ketorolac 15 MG/ML Vial IV (05:16)
[2019-08-12] MEDS: 0.9% Saline Lock 10 ML Syringe IV ×2 (05:16→05:24)
[2019-08-12] MEDS: Cefazolin 1 GM/50 ML BAG IV (05:24)
[2019-08-12] MEDS: Acetaminophen 500 MG Tablet 1000 MG PO ×2 (06:01→14:29)
[2019-08-12 06:16] LABS: Bedside Glucose 165 mg/dL (70-110)
[2019-08-12 06:40] LABS: Hematocrit 32.8 % (40-54); Hemoglobin 10.5 g/dL (13.0-16.5); Mean Corpuscular Hgb 28.8 pg (27.0-32.0); Mean Corpuscular Volume 89.9 fL (80-94); Mean Platelet Vol. 9.8 fl (6.2-12.0); Platelet Count 155 K/mm3 (150-450); RBC Distribution Width CV 13.3 % (11.6-14.6); RBC Distribution Width SD 43.7 fl (35.1-43.9); Red Blood Count 3.65 M/mm3 (4.6-6.2); White Blood Count 11.4 K/mm3 (4.4-11.0)
[2019-08-12 07:04] LABS: Anion Gap 8 (5-15); BUN 14 mg/dL (7-18); BUN/Creat Ratio 14.5 RATIO (10-20); Calcium,Total 8.9 mg/dL (8.5-10.1); Chloride 97 mmol/L (98-107); Creatinine, Serum 0.97 mg/dL (0.70-1.30); EST Glomerular Filtration Rate 82 mL/min (>60); Est Glom Filt Rate - Afr Amer 99 mL/min (>60); Estimated Creatinine Clearance 68.56 ml/min; Glucose 166 mg/dL (74-106); Potassium 4.5 mmol/L (3.5-5.1); Sodium Level 133 mmol/L (136-145)
[2019-08-12] MEDS: Ondansetron 4 MG/2 ML Vial IV (07:30)
[2019-08-12 07:45] VITALS: BP 156/75; PULSE 75; RESP 18; TEMP 36.6; O2SAT 96
[2019-08-12] MEDS: Aspirin 81 MG TAB.CHEW PO (07:57)
[2019-08-12] MEDS: Ferrous Sulfate 325 MG Tablet PO (07:58)
[2019-08-12] MEDS: metFORMIN HCl 500 MG Tablet PO (07:58)
[2019-08-12] MEDS: Ensure Surgery 237 ML LIQUID PO (08:04)
[2019-08-12] MEDS: Famotidine 20 MG Tablet PO (08:13)
[2019-08-12] MEDS: Senna/Docusate Sodium 1 Tablet 2 TABLET PO (08:13)
[2019-08-12] MEDS: Ascorbic Acid 500 MG Tablet 1000 MG PO (08:13)
[2019-08-12] MEDS: Losartan Potassium 50 MG Tablet PO (08:14)
[2019-08-12] MEDS: Doxycycline 100 MG CAPSULE PO (08:14)
--- NOTE | 2019-08-12 09:04 | PN.ORTHO_ITS ---
Subjective: The patient was sitting in bedside chair upon examination. Patient denies any chest pain, shortness of breath, dizziness, lightheadedness, or calf pain. Pain is controlled on medications. No adverse overnight events. Patient did have nausea and vomiting when given the Toradol. This has been discontinued. Patient states the pain is been doing very well. Patient does wish to try to go home today if he is able to. He has not had physical therapy. He does have limitations with no active abduction for 6 weeks and posterior hip dislocation precautions. Objective: Vital signs stable and afebrile. Patient is able to plantarflex and dorsiflex actively. Sensation is intact to light touch to saphenous, sural, superficial and deep peroneal, and tibial distribution. Dressing is clean dry and intact Negative Homans bilaterally, negative signs and symptoms of DVT. - Physical Exam Vitals/I&O's: Vital Signs Temp Pulse Resp BP Pulse Ox 97.8 F 75 18 156/75 H 96 08/12/19 07:45 08/12/19 07:45 08/12/19 07:45 08/12/19 07:45 08/12/19 07:45 Oxygen Flow Rate (L/min) 6 Oxygen Delivery Method Room Air Weight: 92 kg Body Mass Index (BMI) 30.8 Finger Stick Blood Glucose 183 Intake and Output for Last 24 Hours 08/10/19 08/11/19 08/12/19 23:59 23:59 23:59 Intake Total 3620 / 4120 1827.50 / 1827.50 Output Total 650 / 650 Balance 3620 / 3820 1177.50 / 1177.50 General: Alert, Oriented x3, Cooperative, No apparent distress Laboratory Results 08/11/19 10:15: POC Glucose 225 H 08/11/19 16:39: POC Glucose 183 H 08/11/19 22:17: POC Glucose 189 H 08/12/19 06:05: POC Glucose 165 H 08/12/19 06:25: WBC 11.4 H, RBC 3.65 L, Hgb 10.5 L, Hct 32.8 L, MCV 89.9, MCH 28 .8, MCHC 32.0, RDW Std Deviation 43.7, RDW Coeff of Kwame 13.3, Plt Count 155, MPV 9.8 08/12/19 06:25: Sodium 133 L, Potassium 4.5, Chloride 97 L, Carbon Dioxide 28.0, Anion Gap 8, BUN 14, Creatinine 0.97, Estim Creat Clear Calc 68.56, Est GFR (MDRD) Af Amer 99, Est GFR (MDRD) Non-Af 82, BUN/Creatinine Ratio 14.5, Glucose 166 H, Calcium 8.9 Current Medications Acetaminophen (Tylenol) 1,000 mg PO Q8 [facility] Last Admin: 08/12/19 06:01 Dose: 1,000 mg Documented by: Ascorbic Acid (Vitamin C) 1,000 mg PO BID [facility] Last Admin: 08/12/19 08:13 Dose: 1,000 mg Documented by: Aspirin (Aspirin, Baby) 81 mg PO BIDCM [facility] Last Admin: 08/12/19 07:57 Dose: 81 mg Documented by: Atorvastatin Calcium (Lipitor) 20 mg PO QHS [facility] Last Admin: 08/11/19 22:21 Dose: 20 mg Documented by: Cholecalciferol (Vitamin D (25mcg)) 1,000 unit PO DAILY [facility] Last Admin: 08/12/19 08:13 Dose: 1,000 unit Documented by: Doxycycline Monohydrate (Doxycycline) 100 mg PO BID [facility] Last Admin: 08/12/19 08:14 Dose: 100 mg Documented by: Enteral Nutritional Formula (Ensure Surgery) 237 ml PO TIDCM [facility] Last Admin: 08/12/19 08:04 Dose: 237 ml Documented by: Famotidine (Pepcid) 20 mg PO DAILY [facility] Last Admin: 08/12/19 08:13 Dose: 20 mg Documented by: Ferrous Sulfate (Ferrous Sulfate) 325 mg PO DAILY@0800 [facility] Last Admin: 08/12/19 07:58 Dose: 325 mg Documented by: Lactated Ringer's () 1,000 mls @ 75 mls/hr IV .[id number] [facility] Last Infusion: 08/12/19 02:22 Dose: 0 mls/hr Documented by: Insulin Human Lispro (Humalog Kwikpen ([facility])) 1 - 6 unit SC Q4H PRN PRN; Protocol PRN Reason: BG>/= 180, SEE PROTOCOL Last Admin: 08/11/19 22:24 Dose: 1 units Documented by: Ketorolac Tromethamine (Toradol ([facility])) 15 mg IV Q6H PRN PRN PRN Reason: Pain Score 1-5/10 Stop: 08/12/19 18:01 Last Admin: 08/12/19 05:16 Dose: 15 mg Documented by: Lactobacillus Acidophilus (Acidophilus) 1 tablet PO DAILY [facility] Last Admin: 08/12/19 08:14 Dose: 1 tablet Documented by: Losartan Potassium (Cozaar) 50 mg PO DAILY [facility] Last Admin: 08/12/19 08:14 Dose: 50 mg Documented by: Meloxicam (Mobic) 7.5 mg PO BID [facility] Metformin [facility]ucophage) [facility] Last Admin: 08/12/19 07:58 Dose: 500 mg Documented by: Morphine Sulfate () 2 - 4 mg IV Q2H PRN PRN PRN Reason: Pain Score 4-1010 Last Admin: 08/11/19 20:39 Dose: 2 mg Documented by: Niacin (Niacin Sr) [facility] Last Admin: 08/12/19 07:58 Dose: 500 mg Documented by: Ondansetron HCl (Zofran) 4 mg IV Q8H PRN PRN PRN Reason: NAUSEA Last Admin: 08/12/19 07:30 Dose: 4 mg Documented by: Oxycodone HCl (Oxyir) 5 - 10 mg PO Q4H PRN PRN PRN Reason: Pain Score 4-10/10 Last Admin: 08/11/19 22:35 Dose: 5 mg Documented by: Promethazine HCl (Phenergan) 12.5 mg IM Q6H PRN PRN; Protocol PRN Reason: NAUSEA/VOMITING Senna/Docusate Sodium (Senokot-S, Cynthia-Colace) 2 tablet PO BID [facility] Last Admin: 08/12/19 08:13 Dose: 2 tablet Documented by: Sodium Chloride () 10 - 40 ml IV UD PRN PRN Reason: SALINE FLUSH Last Admin: 08/12/19 05:24 Dose: 10 ml Documented by: Tizanidine HCl (Zanaflex) 4 mg PO DAILY PRN PRN PRN Reason: MUSCLE SPASMS Medical Necessity - Tobacco Use Smoking Status: Former smoker Tobacco Use: Non-smoker Assessment/Plan All Active Problems (Last Reviewed 03/17/19 @ 18:[address] Chavo Alcala MD) Debility (Acute) Infected prosthesis of left hip (Acute) 1. S/P left hip removal antibiotic spacer with revision left total hip arthroplasty and open reduction internal fixation greater trochanteric fracture POD #1 2. Continue Pain Medications: Tylenol, meloxicam, oxycodone 3. DVT Prophylaxis: Aspirin 81 mg twice daily for 4 weeks postoperatively 4. PT/OT: Weightbearing as tolerated with strict posterior hip dislocation precautions and no active abduction for 6 weeks postoperatively 5. H & H: 11.5/36.3, asymptomatic. Secondary to acute postoperative blood loss 6. Reactive leukocytosis: Currently 11.4, afebrile. Patient did receive De cadron intraoperatively. 7. Continue antibiotics while following cultures: Currently pending. Patient will be on doxycycline 1 week postoperatively. 8. Encouraged Incentive Spirometry 9. Continue postoperative medical management per medicine 10. Disposition: Orthopedically patient is doing well. Patient is requesting to try to go home today. I did have a discussion with him that I would like to see how he does with physical therapy to make sure he is maintaining the appropriate precautions. If patient tolerates physical therapy and his pain is well controlled and medically stable we can attempt possible discharge home this afternoon. Prescriptions will be E scribed to [facility] in [place]. Patient has outpatient physical therapy established. I have reviewed the [place] Automated Rx Reporting System (OARRS) report for this patient for refill pattern and other prescriber involvement as part of the appropriate surveillance for the provision of acute and chronic controlled medications. The report was requested and reviewed on the date of this entry and was considered in the prescribing process.
--- NOTE | 2019-08-12 09:20 | PCM.DC.THR ---
Discharge Diet: 1800 Calorie Control Diet Discharge Activity: May Not Drive - while taking narcotic pain medications. May shower in (days): 1 - Dressing must be intact to skin. Turned dressing away from water Weight Bearing Status: Weight bearing as tolerated - With walker Elevate: Operative Extremity Additional Activity Instructions:: Wear elastic stockings for 2 weeks. DO NOT use alcohol with narcotic pain medication. DO NOT make important decisions while taking narcotic medication. If you have problems with taking your medication (rash, itching, nausea, etc.) call the office at once. Call your doctor if your incision/area has: Increased Pain/ Swelling, Increased Redness, Foul Smelling Discharge Call your doctor if you observe: Fever of 101 or Higher Remove Dressing in (days):: 4 - Okay to remove dressing on August 16, 2019 Additional Instructions: Follow orthopedic postop instructions Strict posterior hip dislocation precautions: No flexion greater than 90 degrees of the hip and no internal/external rotation or crossing of the legs. No active abduction for 6 weeks postoperatively Allergies/Adverse Reactions: Allergies Penicillins Allergy (Verified 08/11/19 10:04) CHILDHOOD ALLERGY PER PATIENT'S MOTHER. PATIENT UNAWARE OF ANY OTHER ALLERGY. WASP STINGS Allergy (Severe, Uncoded 08/11/19 10:04) Anaphylaxis USES EPI PEN Medications to take at Discharge ascorbic acid (vitamin C) 1,000 mg tablet 1 g PO BID tab 03/15/19 atorvastatin 20 mg tablet 20 mg PO QHS 03/15/19 metformin 500 mg tablet 500 mg PO BID tab 03/15/19 niacin 500 mg tablet 500 mg PO DAILY 03/15/19 tizanidine 4 mg capsule 4 mg PO PRN PRN cap 03/15/19 L.acidoph,Paracasei, B.lactis [Probiotic] 1 ea PO DAILY 03/22/19 Valsartan [Diovan] 160 mg PO DAILY 04/16/19 Ferrous Sulfate 325 mg PO DAILY@0800 #30 tab 05/04/19 Cholecalciferol (VIT D3) [Vitamin D3] 1,000 unit PO DAILY 07/30/19 Acetaminophen [Tylenol] 1,000 mg PO Q8 #100 tab 08/12/19 Aspirin [Aspirin, Baby] 81 mg PO BIDCM #60 tab 08/12/19 Doxycycline 100 mg PO BID #12 cap 08/12/19 Meloxicam [Mobic] 7.5 mg PO BID #60 tab 06/11/20 Oxycodone [Oxyir] 5 - 10 mg PO Q4H PRN PRN 4 Days #48 tablet 08/12/19 Senna/Docusate Sodium [Senokot-S] 2 tab PO BID #10 tab 08/12/19 The following prescriptions were given: Aspirin [Aspirin, Baby] 81 mg PO BIDCM #60 tab Transmission Status: Pending to [facility] Doxycycline 100 mg PO BID #12 cap Transmission Status: Pending to [facility] Meloxicam [Mobic] 7.5 mg PO BID #60 tab Transmission Status: Pending to [facility] Oxycodone [Oxyir] 5 - 10 mg PO Q4H PRN PRN 4 Days #48 tablet PRN Reason: Pain Score 4-10/10 Transmission Status: Sent to [facility] Senna/Docusate Sodium [Senokot-S] 2 tab PO BID #10 tab Transmission Status: Pending to [facility] Acetaminophen [Tylenol] 1,000 mg PO Q8 #100 tab Transmission Status: Pending to [facility] Primary Care Physician: Noel Rudd MD [Primary Care Provider] - Test Results: Test results from this visit will be discussed in further detail at your follow-up appointment, if applicable. Please Follow Up With: Kiran [facility] When: 08/16/19 @ 9:00 am with Birgit Please Follow Up With: Milagros Griggs NP-C When: 08/25/19 @ 10:15 am
[2019-08-12] MEDS: oxyCODONE 5 MG Tablet PO ×2 (10:14→14:39)
--- NOTE | 2019-08-12 12:03 | PCM.PN.HOSP ---
Subjective: Vomited after receiving ketorolac. Vitals/I&O's: Vital Signs Temp Pulse Resp BP Pulse Ox 36.6 C 75 18 156/75 H 96 08/12/19 07:45 08/12/19 07:45 08/12/19 07:45 08/12/19 07:45 08/12/19 07:45 Oxygen Flow Rate (L/min) 6 Oxygen Delivery Method Room Air Weight: 92 kg Body Mass Index (BMI) 30.8 Finger Stick Blood Glucose 183 Intake and Output for Last 24 Hours 08/10/19 08/11/19 08/12/19 23:59 23:59 23:59 Intake Total 3620 / 4120 1827.50 / 1827.50 Output Total 650 / 650 Balance 3620 / 3820 1177.50 / 1177.50 General: Alert, No apparent distress HEENT: Atraumatic, Normocephalic Oral: Moist Mucosa, No Gingival or Mucosal Lesions/ Ulcerations Neck: No Nodes, Thyroid Normal Size and Texture Lungs: Clear to auscultation, Normal air movement, No rhonchi, No wheeze Cardiovascular: Regular rate, Regular Rhythm, Normal S1, Normal S2 Abdomen: Bowel Sounds Present, Soft, Non Tender, Non-Distended Extremities: No edema, No Calf Tenderness Psych/Mental Status: Normal Affect, Appropriate Microbiology Past 72 Hours 08/11/19 16:45 Tissue - Hip Wound Culture - Preliminary No growth-Final to follow 08/11/19 16:45 Tissue - Hip Wound Culture - Preliminary No growth-Final to follow 08/11/19 16:45 Tissue - Hip Wound Culture - Preliminary No growth-Final to follow Laboratory Results 08/11/19 16:39: POC Glucose 183 H 08/11/19 22:17: POC Glucose 189 H 08/12/19 06:05: POC Glucose 165 H 08/12/19 06:25: WBC 11.4 H, RBC 3.65 L, Hgb 10.5 L, Hct 32.8 L, MCV 89.9, MCH 28.8, MCHC 32.0, RDW Std Deviation 43.7, RDW Coeff of Kwame 13.3, Plt Count 155, MPV 9.8 08/12/19 06:25: Sodium 133 L, Potassium 4.5, Chloride 97 L, Carbon Dioxide 28.0, Anion Gap 8, BUN 14, Creatinine 0.97, Estim Creat Clear Calc 68.56, Est GFR (MDRD) Af Amer 99, Est GFR (MDRD) Non-Af 82, BUN/Creatinine Ratio 14.5, Glucose 166 H, Calcium 8.9 Current Medications Acetaminophen (Tylenol) 1,000 mg PO Q8 [facility] Last Admin: 08/12/19 06:01 Dose: 1,000 mg Documented by: Ascorbic Acid (Vitamin C) 1,000 mg PO BID [facility] Last Admin: 08/12/19 08:13 Dose: 1,000 mg Documented by: [facility], [facility]) [facility] Last Admin: 08/12/19 07:57 Dose: 81 mg Documented by: Atorvastatin Calcium (Lipitor) 20 mg PO QHS [facility] Last Admin: 08/11/19 22:21 Dose: 20 mg Documented by: Cholecalciferol (Vitamin D (25mcg)) 1,000 unit PO DAILY [facility] Last Admin: 08/12/19 08:13 Dose: 1,000 unit Documented by: Doxycycline Monohydrate (Doxycycline) 100 mg PO BID [facility] Last Admin: 08/12/19 08:14 Dose: 100 mg Documented by: Enteral Nutritional Formula (Ensure Surgery) 237 ml PO TIDCM [facility] Last Admin: 08/12/19 08:04 Dose: 237 ml Documented by: Famotidine (Pepcid) 20 mg PO DAILY [facility] Last Admin: 08/12/19 08:13 Dose: 20 mg Documented by: Ferrous Sulfate (Ferrous Sulfate) 325 mg PO DAILY@0800 [facility] Last Admin: 08/12/19 07:58 Dose: 325 mg Documented by: Insulin Human Lispro (Humalog Jlpen (Bkc)) 1 - 6 unit SC Q4H PRN PRN; Protocol PRN Reason: BG>/= 180, SEE PROTOCOL Last Admin: 08/11/19 22:24 Dose: 1 units Documented by: Lactobacillus Acidophilus (Acidophilus) 1 tablet PO DAILY [facility] Last Admin: 08/12/19 08:14 Dose: 1 tablet Documented by: Losartan Potassium (Cozaar) 50 mg PO DAILY [facility] Last Admin: 08/12/19 08:14 Dose: 50 mg Documented by: Meloxicam (Mobic) 7.5 mg PO BID [facility] Metformin HCl (Glucophage) [facility] Last Admin: 08/12/19 07:58 Dose: 500 mg Documented by: Morphine Sulfate () 2 - 4 mg IV Q2H PRN PRN PRN Reason: Pain Score 4-10/10 Last Admin: 08/11/19 20:39 Dose: 2 mg Documented by: Niacin ([facility]in Sr) [facility] Last Admin: 08/12/19 07:58 Dose: 500 mg Documented by: Ondansetron HCl (Zofran) 4 mg IV Q8H PRN PRN PRN Reason: NAUSEA Last Admin: 08/12/19 07:30 Dose: 4 mg Documented by: Oxycodone HCl (Oxyir) 5 - 10 mg PO Q4H PRN PRN PRN Reason: Pain Score 4-10/10 Last Admin: 08/12/19 10:14 Dose: 10 mg Documented by: Promethazine HCl (Phenergan) 12.5 mg IM Q6H PRN PRN; Protocol PRN Reason: NAUSEA/VOMITING Senna/Docusate Sodium (Senokot-S, Cynthia-Colace) 2 tablet PO BID [facility] Last Admin: 08/12/19 08:13 Dose: 2 tablet Documented by: Sodium Chloride () 10 - 40 ml IV UD PRN PRN Reason: SALINE FLUSH Last Admin: 08/12/19 05:24 Dose: 10 ml Documented by: Tizanidine HCl (Zanaflex) 4 mg PO DAILY PRN PRN PRN Reason: MUSCLE SPASMS Medical Necessity - Tobacco Use Smoking Status: Former smoker Tobacco Use: Non-smoker Assessment/Plan All Active Problems (Last Reviewed 03/17/19 @ 18:[address] Chavo Alcala MD) Debility (Acute) Infected prosthesis of left hip (Acute) 1. DM2: controlled. Continue with metformin 2. HTN: stable. continue with losartan 3. s/p Left hip replacement: mgmt per orthopaedics Medically stable for discharge. Inpatient E&M: 64677 Subs Hosp L2
--- NOTE | 2019-08-12 12:40 | CASEMGMT ---
KANG BELTRAN Face to Face with patient for initial transition planning/care coordination assessment. RN DEVIN introduced self and role at [facility]. Patient lying in bed, alert and oriented. Patient willing to participate in assessment and is able to answer all questions appropriately. Care providers, pharmacy, and demographics verified. Patient wishes to discharge home and is setup with [facility] for outpatient therapy. Patient states he has no further needs or concerns at this time. CM to follow for discharge planning needs that may arise. PCP: Tobin Specialists: stefania Raphael Pharmacy: [facility] Prescription Benefit: yes Living Will/HPOA: yes, Rachael Sampson LNOK: Living Arrangements: Patient lives with in 2 story home with bed and bath on first floor. 5-6 steps to enter the home. Patient independent prior to surgery Transportation: DME/HHC: Patient has shower chair, raised toilet seat, cane, grab bars, hip kit, walker, and nebulizer at home. Patient is setup with [facility] for outpatient therapy on Friday. Disposition Plan: Patient to discharge home with outpatient therapy, family support, and follow-up plans in place. Cele HERNANDEZ, RN, CM
[2019-08-12 14:15] VITALS: BP 153/76; PULSE 99; RESP 18; TEMP 37.2; O2SAT 95
== END 2019-08-12 15:30 | disposition home or self-care (01) | DRG 466 ==
LOC: ACINP 09:56 → MS3 13:32
PROVIDERS: Anesthesiology; Admitting Provider Specialist; PCP Family Medicine; Referring Provider Specialist
PROC: 0SPB08Z Removal of Spacer from Left Hip Joint, Open Approach (ICD-10-PCS; CPT 27134; principal; 2019-08-11 11:35)
DX: Z47.32 Aftercare following explantation of hip joint prosthesis (principal); S72.112A Displaced fracture of greater trochanter of left femur, initial encounter for closed fracture; T84.52XA Infection and inflammatory reaction due to internal left hip prosthesis, initial encounter; M96.89 Other intraoperative and postprocedural complications and disorders of the musculoskeletal system; I10 Essential (primary) hypertension; E11.9 Type 2 diabetes mellitus without complications; Z87.891 Personal history of nicotine dependence; E78.5 Hyperlipidemia, unspecified; Y83.8 Other surgical procedures as the cause of abnormal reaction of the patient, or of later complication, without mention of misadventure at the time of the procedure
CPT/HCPCS: 36415; 73502; 80048; 82962; 83036; 85027; 87015; 87070; 87075; 87077; 87081; 87102; 87116; 87205; 87206; 87635; 97110; 97116; 97162; 97166; 99251; C1776; G2023; J7120; A4216; G0463; J2405; U0003

== ENCOUNTER 2020-04-05 15:01 | Observation (INO) | payer MEDICARE, OTHER, SELFPAY ==
[2019-08-11 17:52] VITALS: BMI 30.8
--- NOTE | 2020-03-20 12:37 | PCM.HP.BLA ---
History and Physical History and Physical Patient Name: Griffin Sampson : 1950 From: WILEY HINTON NP DATE OF SURGERY: 04/05/2020 SCHEDULED PROCEDURE: Right total hip arthroplasty HISTORY OF PRESENT ILLNESS: Preoperative history and physical exam was performed in March 17, 2020. This is a 69-year-old male who has been having right hip pain following his left total hip arthroplasty. The pain is located in the right groin. The pain is 7 scale of 10 at worst. The pain is made worse with stairs and walking. The pain has significantly increased while performing physical therapy following a left total hip arthroplasty. The patient reports inability to perform activities of daily living such as dressing and undressing. The patient reports start up pain. He has had a near fall secondary to the right hip pain and weakness. Previous conservative measures attempted consist of rest, ice, heat and elevation with mild relief. The patient had an intra-articular right hip injection September 2019 with no relief. The patient has taken extra strength Tylenol and Celebrex with some relief. The patient had a left total hip arthroplasty revision in April 2019 with placement of an antibiotic spacer with removal of the antibiotic spacer to total hip implants in August 2019. His original left total hip arthroplasty was in 2011. The patient developed an infection in the left hip following an injury to the left thigh while cutting wood. The patient has a medical history pertinent for type 2 diabetes, hypercholesterolemia and hypertension. Surgical clearance will be obtained from his primary care provider Dr. Rudd. He denies chest pain, fevers, chills, shortness of breath, difficulty breathing or recent infections. After failing conservative measures and discussing treatment options with Dr. Arsenio Raphael the patient does wish to proceed with a right total hip arthroplasty. REVIEW OF SYSTEMS: ROS: Const: Reports difficulty sleeping and weight change, but denies anorexia, change in appetite, fever. CV: Denies chest pain, heart murmur, irregular heartbeat and peripheral vascular disease. Resp: Reports pneumonia, but denies asthma, cough, sleep apnea, shortness of breath, tuberculosis and wheezing. GI: Denies constipation, diarrhea, heartburn, nausea, rectal itching, bloody stools and vomiting. : Denies incontinence. Musculo: Reports pain, but denies leg swelling, trouble walking and weakness. Skin: Denies Raynaud's, history of shingles and tattoo. Neuro: Denies ambulatory dysfunction, dizziness, numbness/tingling and tremor. Psych: Reports anxiety, insomnia and stress, but denies depression and mental illness. Pacheco/Lymph: Denies anemia, bleeding/bruising tendency and past transfusion. Reviewed, no changes. PAST MEDICAL HISTORY: Advance Care Plan: Other Directive, LIVING WILL Effective Date: 07/02/2018 Other Directive, POA PMH: Medical Problems: High Blood Pressure, Hypercholesterolemia, Diabetes Accidents: Sports Related Injury - (1964) RT KNEE Fracture - FINGERS LT Femur - (2017) Surgical Hx: LT Knee - MENISCUS REPAIR LT Elbow - 03/04 [facility] SURGERY Tonsillectomy - AND ADNOIDS left total shoulder replacement - 12-07-2013 lt hip - 2008 [facility] LT Hip Drainage Of Cyst - (07/01/2018) 01/13/2019 LT Hip Antibiotic Spacer - (04/16/2019) SAW @ [facility] Removal Abx Spacer To NOMAN - (08/11/2019) LT - SAW @ [facility] LT Hip Injection - (09/24/2019) SAW @ [facility] Anesthesia Complications: Respiratory Depression Assistive Devices: Glasses, Hearing Aid Reviewed and updated. SOCIAL HISTORY: SH: Marital: .Occupation: [employer].Work Status: Currently Working.Hand Dominance: Right-handed. Personal Habits: Cigarette Use: Former.Smokeless Tobacco: Never Used Smokeless Tobacco.E-Cigarette Use: Never used.Alcohol: Denies use.Drug Use: Denies Use.Enjoy Exercising: Never Exercises. Reviewed, no changes. VITALS: Ht: 67 Wt: 210lb Wt k.256 BMI: 32.9 BP: 129/71 Pulse: 61 Resp: 16 T: 97.5 T: 36.4C Pain Level: 2 ALLERGIES: Penicillins Wasp Stings MEDICATIONS: Aspirin 81 mg 1po qday, Celebrex 200 mg 1 cap by mouth daily, Niacin 500 mg 1po qday, Metformin HCL 500 mg 1 by mouth twice a day, Vitamin C 1000 mg 1 by mouth every day, Atorvastatin Calcium 20 mg 1 by mouth every day, Probiotic 1 PO qd, Vitamin D3 1000 Unit 1 PO daily, Fish Oil 1000 mg 1po bid, Centrum Silver 50+Men 50+Men 1po qday, Colace 100 mg 1po bid, Iron 325 (65 Fe) MG 1po qday, Tylenol 8 Hour 650 mg 2po bid, Finasteride 5 mg 1po qday, Zinc 50 mg 1po qday, Losartan Potassium 100 mg 1 by mouth every day PRE-OP EXAM: General appearance:NORMAL Other: Eyes: Conjunctivae and lids: NORMAL Pupils: ERR Ears, Nose, Mouth, and Throat: NORMAL Other: Inspection of lips, teeth and gums: NORMAL Other: Respiratory: Assessment of respiratory effort: NORMAL Other: Auscultation of lungs: clear to auscultation no wheezes, rhonchi or rales. Cardiovascular: Auscultation of heart: regular rate and rhythm, no murmurs, gallops or rubs. Gastrointestinal: Exam of abdomen: soft, nontender, nondistended bowel sounds present. Neurological: see below Psychiatric: Orientation to time, place and person: NORMAL Other: Mood and affect: NORMAL Other: PHYSICAL EXAMINATION: The patient ambulates with an antalgic gait. Skin is warm, dry and intact. Right hip flexion to 70. Internal rotation to neutral. External rotation to 20. Pain in groin with flexion, abduction and internal rotation. Mild tenderness with palpation over the greater trochanter. Hip flexion strength 5/5. IMAGING STUDIES: 3 views of right hip including weightbearing AP pelvis and AP hip and crossfire lateral obtained on November 11, 2019 reviewed reveals joint space narrowing, subchondral sclerosis and osteophyte formation consistent with severe osteoarthritis. IMPRESSION: 1. Osteoarthritis, right hip 2. Hypertension 3. Type 2 diabetes mellitus 4. Hypercholesterolemia PLAN: Dr. Arsenio Raphael did discuss and review with the patient all treatment options including surgical versus nonsurgical. The patient does wish to proceed with the above-stated procedure. Potential risk, benefits and complications of the procedure were discussed in detail including but not limited to , infection, nerve and blood vessel damage, persistent pain, numbness, tingling, paresthesia, blood clot, pulmonary embolism and requirement for possible further surgery. The patient expressed full understanding and has no further questions for the doctor. The patient does agree to proceed with the above-stated procedure and has signed the surgery consent form. The patient was instructed to bring a walker with him to the hospital the day of his surgery. Discussed with the patient the risks associated with the COVID-19 virus including the risk of exposure while at the hospital. The patient was reassured local hospitals have low infection rates and taken all necessary precautions to limit patient exposure to COVID-19. Limiting the patient's time in the hospital may decrease their exposure to COVID-19. The patient was notified that we will need to comply with any screening or testing the hospital wishes to perform and that surgery may be delayed for any positive test results. This dictation was created using voice recognition software. Phonetic and/or grammatical errors may exist. ___ I have re-examined the patient. There are no clinical changes since date of exam. ___ See progress notes for changes. ___ Dictated on admission Date: Time: Signature:
--- NOTE | 2020-03-30 09:06 | EKG12_ITS ---
Test Reason : PRE OP Blood Pressure : / mmHG Vent. Rate : 069 BPM Atrial Rate : 069 BPM P-R Int : 138 ms QRS Dur : 084 ms QT Int : 402 ms P-R-T Axes : 086 069 066 degrees QTc Int : 430 ms Normal sinus rhythm Normal ECG Confirmed by VIOLET CASSIDY, IMELDA ([id number]), greeting card editor MORGAN MORENO ([id number]) on 04/03/2020 11:21:05 AM Referred By: Arsenio Raphael Confirmed By:WHIT LAZO MD
[2020-03-30 09:11] LABS: Absolute Lymphocyte Count 1.92 X10^3/uL (0.83-4.51); Basophil# 0.02 X10^3/uL; Basophil% 0.2 % (0-1); Eosinophil# 0.14 X10^3/uL; Eosinophils% 1.6 % (0-5); Hematocrit 43.3 % (40-54); Hemoglobin 14.5 g/dL (13.0-16.5); Lymphocyte # 1.92 X10^3/ul (4.0); Lymphocyte % 22.3 % (19-41); Mean Corp Hgb Conc 33.5 g/dL (32-36); Mean Corpuscular Hgb 30.5 pg (27.0-32.0); Mean Corpuscular Volume 91.2 fL (80-94); Mean Platelet Vol. 10.2 fl (6.2-12.0); Monocyte# 0.56 X10^3/uL; Monocyte% 6.5 % (0-10); NRBC Flagged by Analyzer 0 % (0-5); Neutrophil # 5.96 X10^3/uL (2.7-7.7); Neutrophil % 69.2 % (47-70); Platelet Count 188 K/mm3 (150-450); RBC Distribution Width CV 12.1 % (11.6-14.6); RBC Distribution Width SD 40.9 fl (35.1-43.9); Red Blood Count 4.75 M/mm3 (4.6-6.2); White Blood Count 8.6 K/mm3 (4.4-11.0)
[2020-03-30 09:26] LABS: Anion Gap 8 (5-15); BUN 16 mg/dL (7-18); Calcium,Total 8.9 mg/dL (8.5-10.1); Chloride 99 mmol/L (98-107); EST Glomerular Filtration Rate 79 mL/min (>60); Est Glom Filt Rate - Afr Amer 95 mL/min (>60); Glucose 276 mg/dL (74-106); Potassium 4.1 mmol/L (3.5-5.1); Sodium Level 133 mmol/L (136-145)
[2020-03-30 09:28] LABS: Magnesium 1.8 mg/dL (1.6-2.6)
[2020-03-30 14:05] LABS: Hemoglobin A1c 6.9 % (3.8-5.6)
[2020-04-05] VITALS (14 sets, daily range): BP systolic 96–167; BP diastolic 62–96; PULSE 60–79; RESP 16–18; TEMP 36.2–36.9; O2SAT 60–100; BMI 30.4
[2020-04-05] MEDS: Acetaminophen 500 MG Tablet 1000 MG PO ×3 (07:00→20:50)
[2020-04-05] MEDS: Scopolamine 1mg/72hr Patch 1 PATCH TD (07:00)
[2020-04-05] MEDS: Gabapentin 600 MG Tablet PO (07:00)
[2020-04-05] MEDS: Lactated Ringers 1,000 ML 75 ML IV (07:00)
--- NOTE | 2020-04-05 07:00 | RAD_ITS ---
STUDY: X-RAY - PELVIS AND RIGHT HIP REASON FOR EXAM: Male, 69 years old. POST OP TOTAL HIP REPLACEMENT TECHNIQUE: 2 views of the pelvis and hip. COMPARISON: 08/11/2019. FINDINGS: No acute fracture, dislocation or osseous destruction. Uncomplicated appearing left hip arthroplasty. Uncomplicated right hip arthroplasty. Slightly increased superior migration of the previously identified rate or trochanter fracture component. No significant soft tissue swelling. Vascular calcifications. RAD/Hip Min 2 Views (Portable) IMPRESSION: Uncomplicated appearing bilateral hip arthroplasties Electronically Signed: Denilson Langford DO at 12:51 EST Tel , Service support ,
[2020-04-05] MEDS: Lactated Ringers 1,000 ML 999 ML IV ×2 (08:32→12:40)
[2020-04-05] MEDS: Cefazolin 2 GM in 0.9% Normal Saline 100 ML IV (09:49)
[2020-04-05 10:11] LABS: Bedside Glucose 248 mg/dL (70-110)
--- NOTE | 2020-04-05 10:36 | RAD_ITS ---
STUDY: X-RAY - PELVIS AND RIGHT HIP REASON FOR EXAM: Male, 69 years old. INTRA-OPERATIVE RIGHT HIP TECHNIQUE: 4 views of the pelvis and hip. COMPARISON: 08/11/2019 FINDINGS: Fluoroscopy of the right hip was utilized and operating room during arthroplasty and 4 images are submitted for interpretation.. RAD/Hip 1 view with Pelvis IMPRESSION: Fluoroscopy during surgery. Electronically Signed: Kirt Ruffin MD at 7:54 EST Tel , Service support ,
--- NOTE | 2020-04-05 11:14 | PCM.OPRPT ---
Report of Operation Date of Procedure: 04/05/20 Pre-Operative Diagnosis: Right hip primary osteoarthritis Post-Operative Diagnosis: Right hip primary osteoarthritis Surgery/Procedure Performed:: Right direct anterior minimally invasive total hip replacement Description of Surgical Findings:: Stable hip with restored leg length marketing development specialist: Harriet Farnsworth Type of Anesthesia:: Spinal Anesthesiologist: Denilson Lunsford Special Medications: 2 g Ancef, 1 g TXA at incision, 1 g TXA closure, 10 mg Decadron, joint cocktail (5 mg Duramorph, 30 mL of 0.5% Ropivicaine, 1000 units of epinephrine, 30 mg of Toradol) Specimen's removed: Bony cuts Estimated Blood Loss (mL): 150 Fluids Replaced: 700 mL crystalloid Description of Procedure: Components used: 1. Accolade 2 Edin femoral stem size 4 127? 2. Norris trident 2 acetabular shell size 54 mm 3. Norris X3 polyethylene E 4. Edin Biolox delta 36-mm,2.5]mm femoral head Brief history operative indications: 69 yo M who failed conservative measures for their hip osteoarthritis. X-rays were consistent with osteoarthritis including joint space narrowing, osteophyte formation and subchondral cysts. Total hip replacement was discussed with the patient with risks and benefits including but not limited to blood loss, DVTs, PEs, neurovascular damage, dislocation, general risks of anesthesia including loss of life. Patient demonstrated an understanding medical clearance is obtained the patient was consented for surgery. Procedure: On the date of procedure the patient's R hip was marked in the preoperative area. Patient was then taken back to the operating room where anesthesia assumed control of the C-spine and airway and administered anesthetic. Patient was transferred to the operating table and placed in the supine position. The hips were placed at the break of the bed and a sacral bump was placed. The R lower extremity was then prepped out in a sterile fashion using chlorhexidine while the surgeon scrubbed. The PA was vital in the positioning of the patient. Upon reentering the room the R lower extremity was draped in the standard orthopedic fashion and the incision was marked. A timeout was called and everyone agreed upon the side, the site, the procedure be performed, antibody given, and patient's identity. At this time incision was made through skin, subcutaneous tissue, and fat down to fascia. The fascia was then incised and the TFL was retracted laterally. A retractor was placed on the lateral border of the femoral neck. Attention was directed to the inferior portion of the approach and all crossing vessels were identified and appropriately coagulated. A retractor was then placed on the medial portion of the femoral neck. The anterior capsule was then cleared of all soft tissue and then H shaped capsulotomy was made. The retractors were then placed inside the capsule. The femoral neck was identified and a cleanup cut was made. At this time a power corkscrew was used to remove the femoral head. Attention was then turned toward the acetabulum where the soft tissues were appropriately retracted and the acetabulum was sequentially reamed to 54 mm. A 54 mm cup was then selected and impacted into place. Acetabular liner was impacted into place and locking mechanism was verified. The position of the acetabular cup was then verified under live fluoroscopy. Attention was then turned to the femur. Soft tissue releases on the medial and lateral femoral neck were appropriately done, the leg was externally rotated and lateralized. A Young retractor was placed medially and proximally to the greater trochanter this allowed appropriate visualization and exposure of the femoral canal. Rongeour was then used to remove excess lateral bone. A canal finder and entry broach were used to open the proximal canal. Once we verified we were down the femoral canal we subsequently broached up to a size 4 femur. The appropriate neck was placed in the previously selected head was trialed with a -2.5 mm neck. Traction was pulled and the hip was reduced with internal rotation. Once it was appropriately reduced and stability was checked. There was minimal shuck, restored leg lengths compared to preoperative x-rays. (We used pentecostal of leg lengths due to previous surgery on the other side and slightly shorter preoperative limb on contralateral side) there was appropriate stability with hyperextension and external rotation as well as with 90? flexion and internal rotation. Fluoroscopy was then also used to verify the position of the components and leg lengths using the contralateral side for comparison. The trial components were then dislocated the proximal femur was again exposed and the components were removed from the wound. The final components were verified and opened. The wound was copiously irrigated out with normal saline. The acetabulum was checked for any residual debris. The final components were placed and impacted. Traction and internal rotation were again used to reduce the hip. After adequate reduction the hip remained stable with appropriate leg lengths. The final components were once again checked with live fluoroscopy and were found to be satisfactory. The wound was then copiously irrigated with normal saline once more, and hemostasis was obtained. Closure was then done using #1 Vicryl runner to close the fascia. A 2-0 vicryl interuppted sutures were used to close the subcutaneous skin. A 3-0 Monocryl and Steri-Strips were used for final skin closure. A Silverlon dressing was placed. Patient was awakened by anesthesia and transferred to the [facility]. Patient was then transferred to the PACU for recovery. Postoperative plan: Patient will get 24 hours postop antibiotics. Patient will get in-house physical therapy and will be weight-bear as tolerated. Patient will follow up in office in 2 weeks for a wound check and x-rays. Aspirin 81 mg twice daily. - Complications No intraoperative complications - Admit VTE Documentation VTE Present on Admission: No VTE Mechan Device Prophylaxis: SCD's, Thigh High ALEXANDRA Hose VTE Pharm Prophylaxis ordered?: Yes
[2020-04-05 12:05] LABS: Bedside Glucose 154 mg/dL (70-110)
[2020-04-05] MEDS: Lactated Ringers 1,000 ML 125 ML IV ×2 (14:41→23:17)
[2020-04-05] MEDS: oxyCODONE 5 MG Tablet PO ×2 (15:30→20:56)
[2020-04-05] MEDS: metFORMIN HCl 500 MG Tablet PO (16:38)
[2020-04-05] MEDS: Ascorbic Acid 500 MG Tablet 1000 MG PO (16:38)
[2020-04-05] MEDS: Aspirin 81 MG TAB.CHEW PO (16:38)
[2020-04-05 16:45] LABS: Bedside Glucose 164 mg/dL (70-110)
--- NOTE | 2020-04-05 16:49 | PN_ITS ---
Subjective: Mr. Sampson is a 69-year-old white male who was admitted [facility] on 04/05/2020 active right total hip arthroplasty. He has had pain for a significant amount of time and the pain is now affecting his IADLs. He has failed conservative management. He has a past medical history of DM-2, hyperlipidemia, hypertension, and OA. Patient states that he is feeling well and having minimal pain at this time. He is anxious to get up and walk with physical therapy and is awaiting their arrival. Vitals/I&O's: Vital Signs Temp Pulse Resp BP Pulse Ox 97.9 F 60 18 167/81 H 98 04/05/20 15:04 04/05/20 15:04 04/05/20 15:04 04/05/20 15:04 04/05/20 15:04 Oxygen Flow Rate (L/min) 6 Oxygen Delivery Method Room Air Weight: 90.9 kg Body Mass Index (BMI) 30.4 Finger Stick Blood Glucose 154 Intake and Output for Last 24 Hours 04/03/20 04/04/20 04/05/20 23:59 23:59 23:59 Intake Total 3558.42 / 3558.42 Balance 3558.42 / 3558.42 General: Alert, Oriented x3, Cooperative, No apparent distress, Well developed, Well nourished, - - Pleasant white elderly male sitting up in bed watching TV, appears comfortable HEENT: Atraumatic, PERRLA, EOMI, Normocephalic, EAC Clear, - - Tongue is red from Jell-O, poor dentition Oral: Moist Mucosa, No Gingival or Mucosal Lesions/ Ulcerations Neck: Supple, Negative Carotid Bruits, Trachea Midline, Thyroid Normal Size and Texture Lungs: Clear to auscultation, Normal air movement, No rhonchi, No wheeze, No rales Cardiovascular: Regular rate, Regular Rhythm, Normal S1, Normal S2, No murmurs, No Ectopic Activity, No rub noted, No Gallop Abdomen: Bowel Sounds Present, Soft, Non Tender, Non-Distended Extremities: No clubbing, No cyanosis, No edema, Capillary Refill Less than 3 Seconds, Diminished Peripheral Pulses Musculoskeletal: - - Right hip with polar ice on top Neurological: Cranial nerves II-XII grossly intact, Neuro grossly intact Psych/Mental Status: Normal Affect, Appropriate Microbiology Past 72 Hours 04/04/20 09:40 Interface Orders SARS-CoV-2 Antigen (Rapid) - Final Laboratory Results 04/05/20 08:08: POC Glucose 248 H 04/05/20 12:01: POC Glucose 154 H 04/05/20 16:36: POC Glucose 164 H Current Medications Acetaminophen (Acetaminophen 500 Mg Tablet) 1,000 mg PO Q8 [facility] Last Admin: 04/05/20 15:30 Dose: 1,000 mg Documented by: Ascorbic Acid (Ascorbic Acid 500 Mg Tablet) [facility] Last Admin: 04/05/20 16:38 Dose: 1,000 mg Documented by: Aspirin (Aspirin 81 Mg Tab.Chew) 81 mg [facility]IDUN[facility] Last Admin: 04/05/20 16:38 Dose: 81 mg Documented by: Atorvastatin Calcium (Atorvastatin Calcium 20 Mg Tablet) 20 mg PO QHS [facility] Celecoxib (Celecoxib 200 Mg Capsule) 200 mg PO BID PRN PRN Reason: Pain Score 1-10 Cholecalciferol (Cholecalciferol (Vit D3) 1,000 Unit (25mcg)) 1,000 unit PO DAILYUNIVERS[facility] Docusate Sodium (Docusate Sodium 100 Mg Capsule) 100 mg PO BID PRN PRN PRN Reason: CONSTIPATION Enteral Nutritional Formula (Ensure Surgery 237 Ml Liquid) 237 ml PO TIDCM [facility] Famotidine (Famotidine 20 Mg Tablet) 20 mg PO DAILY [facility] Ferrous Sulfate (Ferrous Sulfate 325 Mg Tablet) 325 mg PO DAILY@1200 [facility] Lactated Ringer's () 1,000 mls @ 125 mls/hr IV .Q8H [facility] Last Infusion: 04/05/20 15:40 Dose: 125 mls/hr Documented by: Cefazolin Sodium () 1 gm in 50 mls @ 150 mls/hr IV Q8H [facility] Stop: 04/06/20 02:19 Insulin Human Lispro (Insulin Lispro 100 Unit/Ml Insuln.Pen) 1 - 6 unit SC Q4H PRN PRN; Protocol PRN Reason: BG>/= 180, SEE PROTOCOL Stop: 04/05/20 18:00 Ketorolac Tromethamine (Ketorolac 15 Mg/Ml Vial) 15 mg IV Q6H PRN PRN PRN Reason: Pain Score 1-5 Stop: 04/07/20 07:00 Losartan Potassium (Losartan Potassium 100 Mg Tablet) 100 mg PO DAILY [facility] Metformin HCl (Metformin Hcl 500 Mg Tablet) 500 mg PO [facility]IDUNIV[facility] Last Admin: 04/05/20 16:38 Dose: 500 mg Documented by: Morphine Sulfate (Morphine 2 Mg/Ml Syringe) 2 - 4 mg IV Q2H PRN PRN PRN Reason: Pain Score 4-10 Morphine Sulfate (Morphine 4 Mg/Ml Syringe) 2 - 4 mg IV Q2H PRN PRN PRN Reason: Pain Score 4-10 Niacin (Niacin 250 Mg Capsule) 500 mg PO DAILYUN[facility] Ondansetron HCl (Ondansetron 4 Mg/2 Ml Vial) 4 mg IV Q8H PRN PRN PRN Reason: NAUSEA Oxycodone HCl (Oxycodone 5 Mg Tablet) 5 - 10 mg PO Q4H PRN PRN PRN Reason: Pain Score 4-10 Last Admin: 04/05/20 15:30 Dose: 5 mg Documented by: Promethazine HCl (Promethazine 25 Mg/Ml Syringe) 12.5 mg IM Q6H PRN PRN; Protocol PRN Reason: NAUSEA/VOMITING Senna/Docusate Sodium (Senna/Docusate Sodium 1 Tablet) 2 tablet PO BID [facility] Sodium Chloride (0.9% Nacl Peripheral Flush Adult/Peds) 5 - 15 ml IV UD PRN PRN Reason: SALINE FLUSH Sodium Chloride (0.9% Saline Lock 10 Ml Syringe) 10 - 40 ml IV UD PRN PRN Reason: SALINE FLUSH STROKE Vital Signs/Narrative: Vital Signs Temp Pulse Resp BP Pulse Ox 04/05/20 15:04 97.9 F 60 18 167/81 H 98 04/05/20 15:00 97 04/05/20 13:20 60 16 127/62 H 60 04/05/20 13:00 66 16 125/68 H 100 Medical Necessity - Tobacco Use Smoking Status: Former smoker Assessment/Plan All Active Problems (Last Reviewed 03/17/19 @ 18:[address] Chavo Alcala MD) Debility (Acute) Infected prosthesis of left hip (Acute) Severe OA right hip status post right NOMAN POD #0 -Pain management per primary service -Bowel regimen as ordered -PT\OT -Hip precautions per primary service -Aspirin 81 mg twice daily for DVT prophylaxis in the perioperative period as directed by primary service History of left prosthesis infection -No acute issues -Had his initial hip and revision done in this past calendar year Status post left TSA -No acute issues Hyponatremia -Appears to be chronic with a baseline sodium approximately 133 -Although when corrected for blood sugar is low normal -Repeat BMP in a.m. DM-2 -A1c on 03/30/2020 was 6.9 -Continue Metformin -Continue SSI insulin -BGT before meals and at bedtime Hypertension -Continue losartan 100 mg daily Hyperlipidemia -Continue atorvastatin DVT prophylaxis -Aspirin 81 mg twice daily per primary service Inpatient E&M: 23727 Subs Hosp L2
[2020-04-05] MEDS: Ensure Surgery 237 ML LIQUID PO (18:39)
[2020-04-05] MEDS: Cefazolin 1 GM/50 ML BAG IV (18:39)
[2020-04-05] MEDS: Ketorolac 15 MG/ML Vial IV (18:43)
[2020-04-05] MEDS: Atorvastatin Calcium 20 MG Tablet PO (20:50)
[2020-04-05] MEDS: Senna/Docusate Sodium 1 Tablet 2 TABLET PO (20:50)
[2020-04-06] MEDS: Ketorolac 15 MG/ML Vial IV (00:43)
[2020-04-06] MEDS: Cefazolin 1 GM/50 ML BAG IV (02:00)
[2020-04-06 04:47] VITALS: BP 141/63; PULSE 66; RESP 16; TEMP 36.6; O2SAT 98
[2020-04-06] MEDS: Acetaminophen 500 MG Tablet 1000 MG PO (05:56)
[2020-04-06] MEDS: oxyCODONE 5 MG Tablet PO (05:57)
[2020-04-06 06:40] LABS: Hemoglobin 10.9 g/dL (13.0-16.5); Mean Corpuscular Hgb 30.5 pg (27.0-32.0); Mean Corpuscular Volume 92.4 fL (80-94); Mean Platelet Vol. 10.2 fl (6.2-12.0); Platelet Count 153 K/mm3 (150-450); RBC Distribution Width CV 12.3 % (11.6-14.6); RBC Distribution Width SD 41.8 fl (35.1-43.9); Red Blood Count 3.57 M/mm3 (4.6-6.2); White Blood Count 10.1 K/mm3 (4.4-11.0)
[2020-04-06 07:30] LABS: Anion Gap 5 (5-15); BUN 15 mg/dL (7-18); BUN/Creat Ratio 16.4 RATIO (10-20); Calcium,Total 8.8 mg/dL (8.5-10.1); Chloride 105 mmol/L (98-107); Creatinine, Serum 0.92 mg/dL (0.70-1.30); EST Glomerular Filtration Rate 87 mL/min (>60); Est Glom Filt Rate - Afr Amer 105 mL/min (>60); Estimated Creatinine Clearance 72.28 ml/min; Glucose 168 mg/dL (74-106); Potassium 4.4 mmol/L (3.5-5.1); Sodium Level 136 mmol/L (136-145)
[2020-04-06 07:46] VITALS: BP 146/74; PULSE 76; RESP 12; TEMP 37.1; O2SAT 98
[2020-04-06 07:55] VITALS: PULSE 76; RESP 12; O2SAT 98
--- NOTE | 2020-04-06 09:46 | PN.ORTHO_ITS ---
Subjective: The patient was sitting in bedside chair upon examination. Patient denies any chest pain, shortness of breath, dizziness, lightheadedness, nausea or vomiting, or calf pain. Pain is controlled on medications. No adverse overnight events. Overall patient is doing very well and wishes to be discharged home as soon as possible. He tolerated therapy very well. His pain is been well controlled. Objective: Vital signs stable and afebrile. Patient is able to plantarflex and dorsiflex actively. Sensation is intact to light touch to saphenous, sural, superficial and deep peroneal, and tibial distribution. Dressing is clean dry and intact. Negative Homans bilaterally, negative signs and symptoms of DVT. - Physical Exam Vitals/I&O's: Vital Signs Temp Pulse Resp BP Pulse Ox 98.8 F 76 12 146/74 H 98 04/06/20 07:46 04/06/20 07:55 04/06/20 07:55 04/06/20 07:46 04/06/20 07:55 Oxygen Flow Rate (L/min) 6 Oxygen Delivery Method Room Air Weight: 90.9 kg Body Mass Index (BMI) 30.4 Finger Stick Blood Glucose 154 Intake and Output for Last 24 Hours 04/04/20 04/05/20 04/06/20 23:59 23:59 23:59 Intake Total 5285.50 / 5285.50 1397.92 / 1397.92 Output Total 1175 / 1175 1475 / 1475 Balance 4110.50 / 4110.50 -77.08 / -77.08 General: Alert, Oriented x3, Cooperative, No apparent distress Microbiology Past 72 Hours 04/04/20 09:40 Interface Orders SARS-CoV-2 Antigen (Rapid) - Final Laboratory Results 04/05/20 08:08: POC Glucose 248 H 04/05/20 12:01: POC Glucose 154 H 04/05/20 16:36: POC Glucose 164 H 04/06/20 06:25: WBC 10.1, RBC 3.57 L, Hgb 10.9 L, Hct 33.0 L, MCV 92.4, MCH 30.5, MCHC 33.0, RDW Std Deviation 41.8, RDW Coeff of Kwame 12.3, Plt Count 153, MPV 10.2 04/06/20 06:25: Sodium 136, Potassium 4.4, Chloride 105, Carbon Dioxide 26.0, Anion Gap 5, BUN 15, Creatinine 0.92, Estim Creat Clear Calc 72.28, Est GFR (MDRD) Af Amer 105, Est GFR (MDRD) Non-Af 87, BUN/Creatinine Ratio 16.4, Glucose 168 H, Calcium 8.8 Current Medications Acetaminophen (Acetaminophen 500 Mg Tablet) 1,000 mg PO Q8 [facility] Last Admin: 04/06/20 05:56 Dose: 1,000 mg Documented by: Ascorbic Acid (Ascorbic Acid 500 Mg Tablet) [facility] Last Admin: 04/05/20 16:38 Dose: 1,000 mg Documented by: Aspirin (Aspirin 81 Mg Tab.Chew) [facility] Last Admin: 04/05/20 16:38 Dose: 81 mg Documented by: Atorvastatin Calcium (Atorvastatin Calcium 20 Mg Tablet) 20 mg PO QHS [facility] Last Admin: 04/05/20 20:50 Dose: 20 mg Documented by: Celecoxib (Celecoxib 200 Mg Capsule) 200 mg PO BID PRN PRN Reason: Pain Score 1-10 Cholecalciferol (Cholecalciferol (Vit D3) 1,000 Unit (25mcg)) 1,[facility] Docusate Sodium (Docusate Sodium 100 Mg Capsule) 100 mg PO BID PRN PRN PRN Reason: CONSTIPATION Enteral Nutritional Formula (Ensure Surgery 237 Ml Liquid) 237 ml PO TIDCM [facility] Last Admin: 04/05/20 18:39 Dose: 237 ml Documented by: Famotidine (Famotidine 20 Mg Tablet) 20 mg PO DAILY [facility] Ferrous Sulfate (Ferrous Sulfate 325 Mg Tablet) 325 mg PO DAILY@1200 [facility] Ketorolac Tromethamine (Ketorolac 15 Mg/Ml Vial) 15 mg IV Q6H PRN PRN PRN Reason: Pain Score 1-5 Stop: 04/07/20 07:00 Last Admin: 04/06/20 00:43 Dose: 15 mg Documented by: Losartan Potassium (Losartan Potassium 100 Mg Tablet) 100 mg PO DAILY [facility] Metformin HCl (Metformin Hcl 500 Mg Tablet) [facility] Last Admin: 04/05/20 16:38 Dose: 500 mg Documented by: Morphine Sulfate (Morphine 2 Mg/Ml Syringe) 2 - 4 mg IV Q2H PRN PRN PRN Reason: Pain Score 4-10 Morphine Sulfate (Morphine 4 Mg/Ml Syringe) 2 - 4 mg IV Q2H PRN PRN PRN Reason: Pain Score 4-10 Niacin (Niacin 250 Mg Capsule) 500 [facility] Ondansetron HCl (Ondansetron 4 Mg/2 Ml Vial) 4 mg IV Q8H PRN PRN PRN Reason: NAUSEA Oxycodone HCl (Oxycodone 5 Mg Tablet) 5 - 10 mg PO Q4H PRN PRN PRN Reason: Pain Score 4-10 Last Admin: 04/06/20 05:57 Dose: 5 mg Documented by: Promethazine HCl (Promethazine 25 Mg/Ml Syringe) 12.5 mg IM Q6H PRN PRN; Protocol PRN Reason: NAUSEA/VOMITING Senna/Docusate Sodium (Senna/Docusate Sodium 1 Tablet) 2 tablet PO BID [facility] Last Admin: 04/05/20 20:50 Dose: 2 tablet Documented by: Sodium Chloride (0.9% Nacl Peripheral Flush Adult/Peds) 5 - 15 ml IV UD PRN PRN Reason: SALINE FLUSH Sodium Chloride (0.9% Saline Lock 10 Ml Syringe) 10 - 40 ml IV UD PRN PRN Reason: SALINE FLUSH Medical Necessity - Tobacco Use Smoking Status: Former smoker Assessment/Plan All Active Problems (Last Reviewed 03/17/19 @ 18:[address] Chavo Alcala MD) Debility (Acute) Infected prosthesis of left hip (Acute) 1. S/P right direct anterior total hip arthroplasty POD #1 2. Continue Pain Medications: Tylenol, oxycodone. Takes Celebrex at home 3. DVT Prophylaxis: Take 81 mg aspirin twice daily for 4 weeks postoperatively for DVT prophylaxis 4. PT/OT: Weightbearing as tolerated 5. H & H: 10.9/33.0, asymptomatic. Take until first bowel movement, then as needed 6. Encouraged Incentive Spirometry 7. Continue postoperative medical management per medicine: Case was discussed with medicine 8. Disposition: Orthopedically stable, plan will be for discharge home today. He has outpatient physical therapy established. Prescriptions will be E scribed to [facility]. He will follow-up per postop instructions. I have reviewed the [place] Automated Rx Reporting System (OARRS) report for this patient for refill pattern and other prescriber involvement as part of the appropriate surveillance for the provision of acute and chronic controlled medications. The report was requested and reviewed on the date of this entry and was considered in the prescribing process.
[2020-04-06] MEDS: Senna/Docusate Sodium 1 Tablet 2 TABLET PO (09:50)
[2020-04-06] MEDS: Ascorbic Acid 500 MG Tablet 1000 MG PO (09:51)
[2020-04-06] MEDS: metFORMIN HCl 500 MG Tablet PO (09:51)
[2020-04-06] MEDS: Famotidine 20 MG Tablet PO (09:52)
[2020-04-06] MEDS: Ensure Surgery 237 ML LIQUID PO (09:52)
[2020-04-06] MEDS: Losartan Potassium 100 MG Tablet PO (09:52)
--- NOTE | 2020-04-06 09:52 | DCINST_ITS ---
Discharge Diet: No Restrictions Discharge Activity: May Not Drive - while taking narcotic pain medications. May shower in (days): 1 - Okay to shower if dressing is intact to skin. Turn dressing away from water. Do not submerge underwater for 6 weeks postoperatively. Ice area for (Minutes): 20 - Every 1-2 hours while awake Weight Bearing Status: Weight bearing as tolerated Elevate: Operative Extremity Additional Activity Instructions:: Wear elastic stockings for 2 weeks. DO NOT use alcohol with narcotic pain medication. DO NOT make important decisions while taking narcotic medication. If you have problems with taking your medication (rash, itching, nausea, etc.) call the office at once. Call your doctor if your incision/area has: Increased Pain/ Swelling, Increased Redness, Foul Smelling Discharge Call your doctor if you observe: Fever of 101 or Higher Remove Dressing in (days):: 4 - Okay to remove on April 10, 2020 Additional Instructions: Follow [facility] Post-op Instructions. Once postoperative dressing has been removed only use gentle soap and water over the incision. Do not use any ointments, Neosporin, salves, alcohol pads over the incision for 6 weeks postoperatively. Do not submerge underwater for 6 weeks postoperatively. Allergies/Adverse Reactions: Allergies Penicillins Allergy (Verified 04/05/20 07:34) CHILDHOOD ALLERGY PER PATIENT'S MOTHER. PATIENT UNAWARE OF ANY OTHER ALLERGY. midazolam [From Versed] Adverse Reaction (Verified 04/05/20 07:34) NEEDS FOLLOW-UP Confusion, anxiety, and becomes combative WASP STINGS Allergy (Severe, Uncoded 04/05/20 07:34) Anaphylaxis USES EPI PEN Medications to take at Discharge ascorbic acid (vitamin C) 1,000 mg tablet 1 g PO BID tab 03/15/19 atorvastatin 20 mg tablet 20 mg PO QHS 03/15/19 metformin 500 mg tablet 500 mg PO BID tab 03/15/19 niacin 500 mg tablet 500 mg PO DAILY 03/15/19 L.acidoph,Paracasei, B.lactis [Probiotic] 1 ea PO DAILY 03/22/19 Ferrous Sulfate 325 mg PO DAILY@0800 #30 tab 05/04/19 Cholecalciferol (VIT D3) [Vitamin D3] 1,000 unit PO DAILY 07/30/19 Celecoxib [Celebrex] 200 mg PO BID PRN 03/22/20 Docusate Sodium [Colace] 100 mg PO BID PRN PRN 03/22/20 Finasteride 03/22/20 Losartan Potassium [Cozaar] 100 mg PO DAILY 03/22/20 [place]-3 Fatty Acids/Fish Oil [Fish Oil 1,000 mg Capsule] 2 cap PO DAILY 03/22/20 Zinc 50 mg PO QHS 03/22/20 Acetaminophen [Tylenol] 1,000 mg PO Q8 30 Days tablet 04/06/20 Aspirin [Aspirin, Baby] 81 mg PO BIDCM 30 Days tab.chew 04/06/20 Famotidine [Pepcid] 20 mg PO DAILY #30 tab 04/06/20 Oxycodone [Oxyir] 5 - 10 mg PO Q4H PRN PRN 5 Days #60 tablet 04/06/20 The following prescriptions were given: Oxycodone [Oxyir] 5 - 10 mg PO Q4H PRN PRN 5 Days #60 tablet PRN Reason: Pain Score 4-10 Transmission Status: Sent to [facility] Famotidine [Pepcid] 20 mg PO DAILY #30 tab Transmission Status: Pending to [facility] Orders to be completed after discharge: 12 Lead EKG [[facility]] Time Frame: 2 Weeks, Location: None Selected Primary Care Physician: Noel Rudd MD [Primary Care Provider] - Test Results: Test results from this visit will be discussed in further detail at your follow- up appointment, if applicable. Please Follow Up With: [facility] When: 04/10/20 @ 9:00 am with Son Please Follow Up With: Chi Schnedier PA-C When: 04/19/20 @ 9:15 am
--- NOTE | 2020-04-06 10:32 | NURSING ---
When cleaning out patient's room after dc it was noted that the patient did not take 5MG OxyIR tab. This medication was wasted in Accudose with asw/asuw tactical air controller and patient was notified by a phone call that he did not take the pain medication.
--- NOTE | 2020-04-06 10:40 | CASEMGMT ---
KANG BELTRAN in to review LUNSFORD form with patient. RN DEVIN explained LUNSFORD form to patient, patient voiced understanding. Patient signed LUNSFORD form and placed in chart. RN DEVIN provided copy of signed LUNSFORD form to patient. Patient had no further questions or concerns at this time.
--- NOTE | 2020-04-06 10:40 | CASEMGMT ---
KANG BELTRAN Face to Face with patient for initial transition planning/care coordination assessment. RN DEVIN introduced self and role at [facility]. Patient sitting in chair, alert and oriented. Patient willing to participate in assessment and is able to answer all questions appropriately. Care providers, pharmacy, and demographics verified. Patient wishes to discharge home and is setup with [facility] for [facility]. Patient states he has no further needs or concerns at this time. CM to follow for discharge planning needs that may arise. PCP: Tobin Specialists: Ije[facility] Pharmacy: [facility] retail at discharge Insurance: [facility], MMO Prescription Benefit: yes Living Will/HPOA: yes, Rachael Gaston HPOA LNOK: Living Arrangements: Patient lives with in a 2 story home with bed and bath on first floor. 5-6 steps with railing x2 to enter the home. Patient was independent at home prior to surgery. Transportation: DME/HHC: Patient states he has shower chair, raised toilet, cane, walker, wheelchair, and grab bars at home. Patient has previous been to TCU. Patient is scheduled for outpatient therapy with [facility] starting Friday. Disposition Plan: Patient to discharge home with outpatient therapy, family support, and follow-up plans in place. Cele HERNANDEZ, RN, CM
--- NOTE | 2020-04-06 11:58 | PCM.PN.HOSP ---
Subjective: Feels well. Vitals/I&O's: Vital Signs Temp Pulse Resp BP Pulse Ox 37.1 C 76 12 146/74 H 98 04/06/20 07:46 04/06/20 07:55 04/06/20 07:55 04/06/20 07:46 04/06/20 07:55 Oxygen Flow Rate (L/min) 6 Oxygen Delivery Method Room Air Weight: 90.9 kg Body Mass Index (BMI) 30.4 Finger Stick Blood Glucose 154 Intake and Output for Last 24 Hours 04/04/20 04/05/20 04/06/20 23:59 23:59 23:59 Intake Total 5285.50 / 5285.50 1397.92 / 1397.92 Output Total 1175 / 1175 1475 / 1475 Balance 4110.50 / 4110.50 -77.08 / -77.08 General: Alert, No apparent distress HEENT: Atraumatic, Normocephalic Psych/Mental Status: Normal Affect, Appropriate Microbiology Past 72 Hours 04/04/20 09:40 Interface Orders SARS-CoV-2 Antigen (Rapid) - Final Laboratory Results 04/05/20 12:01: POC Glucose 154 H 04/05/20 16:36: POC Glucose 164 H 04/06/20 06:25: WBC 10.1, RBC 3.57 L, Hgb 10.9 L, Hct 33.0 L, MCV 92.4, MCH 30.5, MCHC 33.0, RDW Std Deviation 41.8, RDW Coeff of Kwame 12.3, Plt Count 153, MPV 10.2 04/06/20 06:25: Sodium 136, Potassium 4.4, Chloride 105, Carbon Dioxide 26.0, Anion Gap 5, BUN 15, Creatinine 0.92, Estim Creat Clear Calc 72.28, Est GFR (MDRD) Af Amer 105, Est GFR (MDRD) Non-Af 87, BUN/Creatinine Ratio 16.4, Glucose 168 H, Calcium 8.8 Medical Necessity - Tobacco Use Smoking Status: Former smoker Assessment/Plan All Active Problems (Last Reviewed 03/17/19 @ 18:[address] Chavo Alcala MD) Debility (Acute) Infected prosthesis of left hip (Acute) 1. right hip replacement: mgmt per surgery 2. Hyponatremia: resolved Medically stable for discharge. Inpatient E&M: 93374 Subs Hosp L1
--- NOTE | 2020-04-06 12:11 | PHA.DC.MR ---
Pharmacy Service has performed discharge medication reconciliation for this patient. The patient's discharge medication list was reviewed for discrepancies and discrepancies were resolved. Home Medications ascorbic acid (vitamin C) 1,000 mg tablet 1 g PO BID tab 03/15/19 atorvastatin 20 mg tablet 20 mg PO QHS 03/15/19 metformin 500 mg tablet 500 mg PO BID tab 03/15/19 niacin 500 mg tablet 500 mg PO DAILY 03/15/19 L.acidoph,Paracasei, B.lactis [Probiotic] 1 ea PO DAILY 03/22/19 Ferrous Sulfate 325 mg PO DAILY@0800 #30 tab 05/04/19 Cholecalciferol (VIT D3) [Vitamin D3] 1,000 unit PO DAILY 07/30/19 Celecoxib [Celebrex] 200 mg PO BID PRN 03/22/20 Docusate Sodium [Colace] 100 mg PO BID PRN PRN 03/22/20 Finasteride 5 mg PO DAILY 03/22/20 Losartan Potassium [Cozaar] 100 mg PO DAILY 03/22/20 [place]-3 Fatty Acids/Fish Oil [Fish Oil 1,000 mg Capsule] 2 cap PO DAILY 03/22/20 Zinc 50 mg PO QHS 03/22/20 Acetaminophen [Tylenol] 1,000 mg PO Q8 30 Days tab 04/06/20 Aspirin [Aspirin, Baby] 81 mg PO BIDCM 30 Days tab.chew 04/06/20 Famotidine [Pepcid] 20 mg PO DAILY #30 tab 04/06/20 Oxycodone [Oxyir] 5 - 10 mg PO Q4H PRN PRN 5 Days #60 tab 04/06/20 Note: Patient counselling materials prepared, but pt left prior to discharge counselling.
== END 2020-04-06 10:45 | disposition home or self-care (01) ==
LOC: AC 16:22 → MS3 16:22 → SDC 16:22
PROVIDERS: Anesthesiology; Admitting Provider Specialist; PCP Family Medicine; Referring Provider Specialist
PROC: (CPT 27284; principal; 2020-04-05 09:50)
DX: M16.11 Unilateral primary osteoarthritis, right hip (principal); Z20.828 Contact with and (suspected) exposure to other viral communicable diseases; I10 Essential (primary) hypertension; E11.9 Type 2 diabetes mellitus without complications; Z79.899 Other long term (current) drug therapy; Z79.84 Long term (current) use of oral hypoglycemic drugs; Z79.82 Long term (current) use of aspirin; Z87.891 Personal history of nicotine dependence; E78.5 Hyperlipidemia, unspecified; E87.1 Hypo-osmolality and hyponatremia
CPT/HCPCS: 01214; 27130; 36415; 73501; 73502; 76000; 80048; 82962; 83036; 83735; 85025; 85027; 87081; 87426; 93005; 96361; 96365; 96366; 96375; 96376; 97110; 97116; 97162; 97166; 97530; 99218; 99251; C1776; C9803; J7120; G0378; G0379; G0463

== ENCOUNTER 2021-04-13 12:53 | Outpatient (CLI) | payer MEDICARE, OTHER, SELFPAY ==
--- NOTE | 2021-04-13 12:59 | CT_ITS ---
STUDY: CT RIGHT SHOULDER REASON FOR EXAM: Male, 70 years old. SHOULDER PAIN RADIATION DOSAGE (If Supplied By Facility): CTDIvol = ( 19.39 ) mGy, DLP = ( 1072.66 ) mGycm TECHNIQUE: The patient was scanned in a multi detector CT scanner. High resolution transaxial imaging was performed without the administration of intravenous contrast material. Sagittal and coronal images were reconstructed. Individualized dose optimization techniques were used for this CT. COMPARISON: None. FINDINGS: There is severe osteoarthritis, with severe articular joint space narrowing, osteoarthritic spurring, articular remodeling, and with articular erosions. Degenerative spur formation along the anterior and posterior aspect of the acromion. Degenerative spur formation along the anterior and posterior aspects of the head of the humerus. Normal coracoid process. Normal visualized lateral clavicle. There is moderate hypertrophic osteoarthritis with prominent osseous hypertrophy, with a potential for impingement upon the supraspinatus muscle. There is a Type II morphology (curved), with a neutral orientation. Normal visualized muscles and soft tissue structures. CT/Extremity Upper without Contra IMPRESSION: Moderate degree of osteoarthritis of the glenohumeral joint with periarticular spur formation. Moderate degree of the hypertrophic osteoarthritis of the right acromioclavicular joint with possible impingement on the supraspinatus muscle. Electronically Signed: Ryan Leonardo MD at 15:32 EST ,
== END 2021-04-13 23:59 | disposition home or self-care (01) ==
LOC: CT 12:55
PROVIDERS: PCP Family Medicine; Referring Provider Specialist; Visit Provider Specialist
DX: M19.011 Primary osteoarthritis, right shoulder (principal)
CPT/HCPCS: 73200

== ENCOUNTER 2021-07-11 07:19 | Observation (INO) | payer MEDICARE, OTHER, SELFPAY ==
--- NOTE | 2021-05-25 11:45 | PCM.HP.BLA ---
History and Physical History and Physical [facility] Patient Name: Griffin Sampson : 1950 From: BRITTA WAGNER PA-C DATE OF SURGERY: 06/13/2021 SCHEDULED PROCEDURE: right reverse total shoulder arthroplasty HISTORY OF PRESENT ILLNESS: Preoperative history and physical exam was performed on May 25, 2021. This is a 70-year-old male who is had ongoing pain in his right shoulder for over 10 years. Pain and still reaches high as a 7/10. Patient has had previous history of a left total shoulder replacement on December 07, 2013 at outside institution. Patient's pain is located over the anterior and lateral right shoulder. It does wake him up at nighttime. He does feel weaker in the right shoulder. He has had multiple corticosteroid injections with the last injection only given him temporary relief on February 14, 2021. He has been on Tylenol and Celebrex. Previous x-rays reveal severe glenohumeral osteoarthritis with evidence of rotator cuff dysfunction. Patient has had difficulties with activities of daily living including getting dressed and putting on clothes. After failing conservative measures and discussing all treatment options with Dr. Arsenio Raphael, the patient does wish to proceed with a right reverse total shoulder arthroplasty. We are obtaining surgical clearance from patient's primary care physician Dr. Noel Rudd and research psychologist Dr. Zavala. Cardiology is working patient up with echocardiogram and stress test which will be performed on May 31, 2021. Patient denies any chest pain, shortness of breath, fevers chills. He has medical history pertinent for type 2 diabetes mellitus and hypertension. REVIEW OF SYSTEMS: Review Of Systems: Constitutional: Reports difficulty sleeping and weight change, but denies anorexia, change in appetite, fever. Cardiovasular: Denies chest pain, heart murmur, irregular heartbeat and peripheral vascular disease. Respiratory: Reports pneumonia, but denies asthma, cough, sleep apnea, shortness of breath, tuberculosis and wheezing. Gastrointestinal: Denies constipation, diarrhea, heartburn, nausea, rectal itching, bloody stools and vomiting. Genitourinary: Denies incontinence. Musculoskeletal: Reports pain, but denies leg swelling, trouble walking and weakness. Skin: Denies Raynaud's, history of shingles and tattoo. Neurological: Denies ambulatory dysfunction, dizziness, numbness/tingling and tremor. Psychiatric: Reports anxiety, insomnia and stress, but denies depression and mental illness. Hematologic/Lymphatic: Denies anemia, bleeding/bruising tendency and past transfusion. Reviewed, no changes. PAST MEDICAL HISTORY: Advance Care Plan: Other Directive, LIVING WILL Effective Date: 07/02/2018 Other Directive, POA Past Medical History: Medical Problems: High Blood Pressure, Hypercholesterolemia, Diabetes Accidents: Sports Related Injury - (1964) RT KNEE Fracture - FINGERS LT Femur - (2017) Surgical Hx: LT Knee - MENISCUS REPAIR LT Elbow - 03/04 [facility] SUR[facility]ERY Tonsillectomy - AND ADNOIDS left total shoulder replacement - 12-07-2013 lt hip - 2008 [facility] LT Hip Drainage Of Cyst - (07/01/2018) 01/13/2019 LT Hip Antibiotic Spacer - (04/16/2019) SAW @ [facility] Removal Abx Spacer To NOMAN - (08/11/2019) LT - SAW @ [facility] LT Hip Injection - (09/24/2019) [facility] @ [facility] Hip Replacement RT - (04/05/2020) ANTERIOR SAW AT [facility] Anesthesia Complications: Respiratory Depression Assistive Devices: Glasses, Hearing Aid Reviewed, no changes. SOCIAL HISTORY: Social History: Marital: .Occupation: [employer].Work Status: Currently Working.Hand Dominance: Right-handed. Personal Habits: Cigarette Use: Former.Smokeless Tobacco: Never Used Smokeless Tobacco.E-Cigarette Use: Never used.Alcohol: Denies use.Drug Use: Denies Use.Enjoy Exercising: Never Exercises. Reviewed, no changes. VITALS: Ht: 68 Wt: 198lb Wt k.813 BMI: 30.1 BP: 128/80 Pulse: 66 Resp: 16 T: 97.9 T: 36.6C Pain Level: 0 O2SatR: 98 ALLERGIES: Penicillins Wasp Stings Bone Gap MEDICATIONS: Celebrex 200 mg 1 cap by mouth daily, Niacin 500 mg 1po qday, Metformin HCL 500 mg 1 by mouth twice a day, Vitamin C 1000 mg 1 by mouth every day, Atorvastatin Calcium 20 mg 1 by mouth every day, Probiotic 1 PO qd, Vitamin D3 1000 Unit 1 PO daily, Fish Oil 1000 mg 1po bid, Centrum Silver 50+Men 50+Men 1po qday, Colace 100 mg 1po bid, Iron 325 (65 Fe) MG 1po qday, Tylenol 8 Hour 650 mg 2po bid, Zinc 50 mg 1po qday, Losartan Potassium 100 mg 1 by mouth every day, Sildenafil Citrate 20 mg take 1 tablet by mouth as needed for erectile dysfunction, Aspirin Adult Low Dose 81 mg by mouth 1 a day PRE-OP EXAM: General appearance:NORMAL Other: Eyes: Conjunctivae and lids: NORMAL Pupils: ERR Ears, Nose, Mouth, and Throat: NORMAL Other: Inspection of lips, teeth and gums: NORMAL Other: Neck: Examination of neck: no masses noted. Respiratory: Assessment of respiratory effort: NORMAL Other: Auscultation of lungs: expiratory wheezing was appreciated on the left upper and right lower quadrants. Cardiovascular: Auscultation of heart: regular rate and rhythm, no murmurs, gallops or rubs. PHYSICAL EXAMINATION: Patient's right shoulder is cool to touch without erythema. He does get significant crepitus with range of motion. There is limited range of motion secondary to pain. Active forward elevation approximately 100. Internal rotation to beltline. 3/5 supraspinatus strength. Sensation intact to light touch in axillary, median, radial, ulnar nerve distribution. IMAGING STUDIES: Preoperative CT scan shows severe glenohumeral osteoarthritis with inferior bony osteophytes on the humeral head and glenoid as well as loose body in the inferior recess. In addition there is significant posterior bony erosion of the glenoid. Previous x-rays reveal rotator cuff dysfunction and severe glenohumeral osteoarthritis. IMPRESSION: 1. Severe right shoulder glenohumeral osteoarthritis with rotator cuff dysfunction 2. Type 2 diabetes mellitus 3. Hypertension 4. Hypercholesterolemia PLAN: Dr. Arsenio Raphael did discuss and review with the patient all treatment options including surgical versus nonsurgical options. Patient does wish to proceed with the above-stated procedure. Potential risks, benefits, and complications of the procedure were discussed in detail including but not limited to , infection, nerve and blood vessel damage, persistent pain, numbness, tingling, paresthesias, blood clot, pulmonary embolism, and requirement for possible further surgery. The patient expressed full understanding and has no further questions for the doctor. Patient does agree to proceed with the above-stated procedure and has signed the surgery consent form. We discussed the current risks associated with COVID 19. This does include the risk of exposure while in the hospital. Patient was reassured local hospitals have low infection rates and are taking all necessary precautions to avoid exposure to patients. In addition, we discussed strategies that can be used to help limit exposure including those that limit the patient's time in the hospital. Also using strategies to limit the patient's need for continued inpatient services after being discharged from the hospital. Patient was notified that we will need to comply with any screening or testing the hospital wishes to perform or that surgery may be delayed for any positive results. This dictation was created using voice recognition software. Phonetic and/or grammatical errors may exist. ___ I have re-examined the patient. There are no clinical changes since date of exam. ___ See progress notes for changes. ___ Dictated on admission Date: Time: Signature:
--- NOTE | 2021-06-29 15:24 | HP.PCM_ITS ---
History and Physical History and Physical Patient Name: Griffin Sampson : 1950 From: BRITTA WAGNER PA-C DATE OF SURGERY: 07/11/2021 SCHEDULED PROCEDURE: right reverse total shoulder arthroplasty HISTORY OF PRESENT ILLNESS: Preoperative history and physical exam was performed on June 28, 2021. Patient was initially done to undergo right reverse total shoulder arthroplasty but had to be canceled due to elevated A1c. He has been followed by his primary care physician with medications adjusted. His last A1c he was able to get down to 7.2. He is now qualified for surgery. He has had continued pain in the shoulder for over 10 years. Pain can still reach as high as a 7/10. He has had previous left total shoulder replacement in December 07, 2013 at outside institution. His right shoulder pain is located over the anterior and lateral shoulder. It does wake him up at nighttime. He has had previous multiple corticosteroid injections with the last injection only given him temporary relief in January 2021. He has also been on Tylenol and Celebrex. Previous x- rays do reveal severe glenohumeral osteoarthritis with evidence of rotator cuff dysfunction. Activities have been affected with daily routine such as getting dressed and putting on his clothes. After failing conservative measures and discussing treatment options with Dr. Arsenio Raphael, the patient does wish to proceed with a right reverse total shoulder arthroplasty. We have obtained previous clearance from primary care physician Dr. Noel Rudd with most recent A1c at 7.2. We have also had cardiology clearance from Dr. Zavala. He has had previous echocardiogram and stress test. Currently denies any shortness of breath, chest pain, fevers chills or recent infections. He has medical history pertinent for type 2 diabetes mellitus and hypertension. REVIEW OF SYSTEMS: Review Of Systems: Constitutional: Reports difficulty sleeping and weight change, but denies anorexia, change in appetite, fever. Cardiovasular: Denies chest pain, heart murmur, irregular heartbeat and peripheral vascular disease. Respiratory: Reports pneumonia, but denies asthma, cough, sleep apnea, shortness of breath, tuberculosis and wheezing. Gastrointestinal: Denies constipation, diarrhea, heartburn, nausea, rectal itching, bloody stools and vomiting. Genitourinary: Denies incontinence. Musculoskeletal: Reports pain, but denies leg swelling, trouble walking and weakness. Skin: Denies Raynaud's, history of shingles and tattoo. Neurological: Denies ambulatory dysfunction, dizziness, numbness/tingling and tremor. Psychiatric: Reports anxiety, insomnia and stress, but denies depression and mental illness. Hematologic/Lymphatic: Denies anemia, bleeding/bruising tendency and past transfusion. Reviewed, no changes. PAST MEDICAL HISTORY: Advance Care Plan: Other Directive, LIVING WILL Effective Date: 07/02/2018 Other Directive, POA Past Medical History: Medical Problems: High Blood Pressure, Hypercholesterolemia, Diabetes Accidents: Sports Related Injury - (1964) RT KNEE Fracture - FINGERS LT Femur - (2017) Surgical Hx: LT Knee - MENISCUS REPAIR LT Elbow - 03/04 [facility] Tonsillectomy - AND ADNOIDS left total shoulder replacement - 12-07-2013 lt hip - 2008 [facility] LT Hip Drainage Of Cyst - (07/01/2018) 01/13/2019 LT Hip Antibiotic Spacer - (04/16/2019) SAW @ [facility] Removal Abx Spacer To NOMAN - (08/11/2019) LT - SAW @ [facility] LT Hip Injection - (09/24/2019) SAW @ [facility] Hip Replacement RT - (04/05/2020) ANTERIOR SAW AT [facility] Anesthesia Complications: Respiratory Depression Assistive Devices: Glasses, Hearing Aid Reviewed, no changes. SOCIAL HISTORY: Social History: Marital: .Occupation: [employer].Work Status: Currently Working.Hand Dominance: Right-handed. Personal Habits: Cigarette Use: Former.Smokeless Tobacco: Never Used Smokeless Tobacco.E-Cigarette Use: Never used.Alcohol: Denies use.Drug Use: Denies Use.Enjoy Exercising: Never Exercises. Reviewed, no changes. VITALS: Ht: 67.4 Wt: 193lb Wt k.545 BMI: 29.9 BP: 142/82 Pulse: 70 Resp: 14 T: 97.2 T: 36.2C Pain Level: 3 O2SatR: 98 ALLERGIES: Penicillins Wasp Stings Milfay MEDICATIONS: Celebrex 200 mg 1 cap by mouth daily, Niacin 500 mg 1po qday, Metformin HCL 500 mg 1 by mouth twice a day, Vitamin C 1000 mg 1 by mouth every day, Atorvastatin Calcium 20 mg 1 by mouth every day, Probiotic 1 PO qd, Vitamin D3 1000 Unit 1 PO daily, Fish Oil 1000 mg 1po bid, Centrum Silver 50+Men 50+Men 1po qday, Colace 100 mg 1po bid, Iron 325 (65 Fe) MG 1po qday, Tylenol 8 Hour 650 mg 2po bid, Zinc 50 mg 1po qday, Losartan Potassium 100 mg 1 by mouth every day, Sildenafil Citrate 20 mg take 1 tablet by mouth as needed for erectile dysfunction, Aspirin Adult Low Dose 81 mg by mouth 1 a day PRE-OP EXAM: General appearance:NORMAL Other: Eyes: Conjunctivae and lids: NORMAL Pupils: ERR Ears, Nose, Mouth, and Throat: NORMAL Other: Inspection of lips, teeth and gums: NORMAL Other: Neck: Examination of neck: no masses noted. Respiratory: Assessment of respiratory effort: NORMAL Other: Auscultation of lungs: clear to auscultation no wheezes, rhonchi or rales. Cardiovascular: Auscultation of heart: regular rate and rhythm, no murmurs, gallops or rubs. PHYSICAL EXAMINATION: Patient continues to have pain with range of motion with his right shoulder. There is crepitus with range of motion. Range of motion is limited. He does have forward elevation to 100. Internal rotation to beltline. Supraspinatus strength is 3/5 on the right shoulder. Sensation intact to light touch to axillary, median, radial, ulnar distribution. Motor intact with patient able to make okay sign, cross fingers, and thumbs up. IMAGING STUDIES: Preoperative CT scan shows severe glenohumeral osteoarthritis with inferior bony osteophytes on the humeral head and glenoid as well as loose body in the inferior recess. In addition there is significant posterior bony erosion of the glenoid. Previous x-rays reveal rotator cuff dysfunction and severe glenohumeral osteoarthritis. IMPRESSION: 1. Severe right shoulder glenohumeral osteoarthritis with rotator cuff dysfunc tion 2. Type 2 diabetes mellitus 3. Hypertension 4. Hypercholesterolemia PLAN: Dr. Arsenio Raphael did discuss and review with the patient all treatment options including surgical versus nonsurgical options. Patient does wish to proceed with the above-stated procedure. Potential risks, benefits, and complications of the procedure were discussed in detail including but not limited to , infection, nerve and blood vessel damage, persistent pain, numbness, tingling, paresthesias, blood clot, pulmonary embolism, and requirement for possible further surgery. The patient expressed full understanding and has no further questions for the doctor. Patient does agree to proceed with the above-stated procedure and has signed the surgery consent form. We discussed the current risks associated with COVID 19. This does include the risk of exposure while in the hospital. Patient was reassured local hospitals have low infection rates and are takin g all necessary precautions to avoid exposure to patients. In addition, we discussed strategies that can be used to help limit exposure including those that limit the patient's time in the hospital. Also using strategies to limit the patient's need for continued inpatient services after being discharged from the hospital. Patient was notified that we will need to comply with any screening or testing the hospital wishes to perform or that surgery may be delayed for any positive results. This dictation was created using voice recognition software. Phonetic and/or grammatical errors may exist. ___ I have re-examined the patient. There are no clinical changes since date of exam. ___ See progress notes for changes. ___ Dictated on admission Date: Time: Signature:
[2021-07-11] VITALS (9 sets, daily range): BP systolic 108–142; BP diastolic 56–89; PULSE 65–84; RESP 16–18; TEMP 36.1–37.4; O2SAT 84–100; BMI 28.0
--- NOTE | 2021-07-11 07:30 | OP.PCM_ITS ---
Report of Operation Date of Procedure: 07/11/21 Pre-Operative Diagnosis: Right shoulder osteoarthritis with rotator cuff dysfun ction Post-Operative Diagnosis: Right shoulder osteoarthritis with rotator cuff dysfunction Surgery/Procedure Performed:: Right reverse total shoulder replacement Description of Surgical Findings:: Stable shoulder Surgeon: Arsenio Raphael information security consultant: Chi Schneider Type of Anesthesia: General Anesthesiologist: Asa Crisostomo Special Medications: 2 g Ancef, 1 g TXA at incision, 1 g TXA closure, 10 mg Decadron Specimen's removed: Bony cuts Estimated Blood Loss (mL): 200 Fluids Replaced: 1500 mL crystalloid Description of Procedure: Components used 1. [place] reunion glenoid baseplate 2. [place] reunion 36 mm, 6mm, 2 mm eccentric glenosphere 3. [place] reunion 36mm, 4mm humeral liner 4. [place] reunion reverse TSA humeral adapter tray 4mm 5. [place] reunion humeral stem primary press-fit 14 mm size Brief history/Operative indications: 71 yo M with history of right shoulder pain and cuff tear arthropathy. Patient failed conservative measures as mentioned in the H&P. After discussion of risk and benefits of reverse total shoulder replacement including but not limited to blood loss, DVTs, PEs, nerve vessel damage, infection, general risk of anesthesia including loss of life, instability and stiffness patient demonstrating understanding wish to proceed was able to sign informed consent. Medical clearance was obtained. Procedure: On the date of the procedure, patient's right upper extremity was marked in the preoperative area. Patient was taken back to the operating room where they were placed on the table in the supine position. Anesthesia assumed control of the C-spine and airway, then administered anesthetic. All bony prominences were identified well-padded, the head was secured and the patient was placed in the beachchair position at about 35? inclination. Anesthesia remained in control of the C-spine airway throughout the remainder of the procedure. Patient was then appropriately fastened to the table and the right upper extremity was prepped in a sterile fashion. The surgeons then scrubbed. Upon reentering the room, the right upper extremity was draped in a sterile fashion and the incision was marked out. Timeout was called, everyone agreed upon the side, the site, the procedure to be performed, patient identity and antibiotics given. Incision was taken down through skin and subcutaneous tissue, fat down to fascia. The stripe of the deltopectoral interval and cephalic vein were identified and blunt dissection was used to retract the deltoid. The cephalic vein was retracted laterally. Clavipectoral fascia was then incised and a cobra retractor was placed in the wound. The proximal one third of the pectoralis major insertion was released. Pectoralis tendon insertion was used to tenodesed the biceps tendon which was identified in the bicipital groove. Tenodesis was done with #1 Vicryl. Proximally we followed the biceps tendon after transecting it into the rotator interval. The rotator interval was split and the arm was externally rotated. The split was 1 cm medial to the bicipital groove. Subscapularis tendon was released. We released down the anterior portion of the humeral head and a bernal elevator was used to release the inferior portion of the humeral head. The arm was externally r otated and the shoulder was dislocated. The humeral head was then cut at its natural retroversion. Once his humeral head cut was made humerus was retracted out of the way and the glenoid was exposed. After exposing the glenoid, the labrum and the remaining proximal biceps were debrided. At this time we are able to view the entire outer edge of the glenoid. A central pin was placed we sequentially reamed over this central pin to 40mm. Once this was completed the central screw was measured and found to be. The glenoid baseplate was screwed into place. Wound was closely irrigated out with normal saline we then drilled sequentially for 2 screws. Screws were placed superiorly and inferiorly and tightened down the screws. Once the screws were appropriately tightened into place the glenoid baseplate was compressed against the exposed subchondral bone. A 36mm glenosphere was impacted into place engaging the Newton taper. Attention was then turned towards the humerus. The humerus was again externally rotated exposing the proximal portion of the humerus. Central canal finder was then used to open up the canal. We reamed to a 14mm reamer. We then broached to a 14mm stem. We trialed the 4mm liner, with the 4mm humeral baseplate. We obtained an adequate reduction at this time with a nice stable shoulder. Good internal rotation to the gluteus, forward elevation to 140?, external rotation to 20?. Final components were then assembled on the back table, trials were removed and the wound was copiously irrigated with normal saline after dislocating the shoulder. Once the final components were assembled they were impacted into place. Shoulder was then reduced and found to be stable with good range of motion. Subscapularis tendon was repaired using #2 FiberWire. The wound was with chlorhexidine solution then copiously irrigated out with a 1 L normal saline lavage. The deltopectoral fascia was then closed using #1 Vicryl skin was closed using 2-0 Vicryl interrupted sutures and final skin closure was done with 3-0 Monocryl. Steri-Strips are placed for final skin closure. Sterile dressing was placed patient was then placed in a sling and awakened by anesthesia. Patient was then transferred to the PACU for recovery. Postoperative plan: Patient will be admitted to the hospital overnight. They will get physical therapy starting in 2 weeks with normal postoperative regimen. Patient will be placed on 81 mg aspirin twice daily for DVT prophylaxis. The first postoperative appointment will be in 2 weeks for wound check and initiation of phase 1 physical therapy. Patient will be placed on doxycycline 100 mg twice daily due to diabetes with hemoglobin A1c greater than 7 preoperatively. During the course of the procedure the physician freezer assistant played a vital role. His intimate knowledge of my steps in the procedure aided in safe and expedient completion of the procedure. The PA played a vital rolls in positioning particularly in obtaining the appropriate beach chair position and securing the patient's body and head to the table. The PA was also vital in the retraction of soft tissues during the exposure and especially the glenoid work as this is a vital part of the procedure to prevent neurovascular damage. the PA was also vital and protecting soft tissues during times of bony cuts and reaming. He also played a vital role in closure with my direct supervision. The PA was also important during reduction and dislocation of the joint and trials intraoperatively. Complications No intraoperative complications Admit VTE Documentation VTE Present on Admission: No VTE Mechan Device Prophylaxis: SCD's VTE Pharm Prophylaxis ordered?: Yes
[2021-07-11] MEDS: Lactated Ringers 1,000 ML 999 ML IV ×2 (07:38→09:10)
[2021-07-11] MEDS: Gabapentin 600 MG Tablet PO (07:39)
[2021-07-11] MEDS: Insulin Lispro 100 UNIT/ML INSULN.PEN SC ×2 (07:39→21:25)
[2021-07-11] MEDS: Acetaminophen 500 MG Tablet 1000 MG PO ×3 (07:39→21:25)
[2021-07-11] MEDS: Cefazolin 2 GM in 0.9% Normal Saline 100 ML IV (08:49)
[2021-07-11] MEDS: TXA 1000mg in NS100 100ml (IVPB at Incision) 660 MG IV (09:01)
[2021-07-11 09:55] LABS: Bedside Glucose 237 mg/dL (74-106)
[2021-07-11] MEDS: TXA 1000mg in NS100 100ml (IVPB at Closure) 660 MG IV (10:30)
[2021-07-11 11:10] LABS: Bedside Glucose 154 mg/dL (74-106)
[2021-07-11] MEDS: Scopolamine 1mg/72hr Patch 1 PATCH TD (11:20)
--- NOTE | 2021-07-11 11:20 | RAD_ITS ---
STUDY: X-RAY - RIGHT SHOULDER REASON FOR EXAM: Male, 71 years old. Post op -- AP and Lateral X-Ray of operative shoulder in PACU TECHNIQUE: 2 view(s) of the shoulder. COMPARISON: None. FINDINGS: The patient is status post right shoulder replacement. There is good alignment. Postoperative soft tissue changes. RAD/Shoulder min 2 Views IMPRESSION: Status post right shoulder replacement. There is good alignment. Postoperative soft tissue changes. Electronically Signed: Ryan Leonardo MD at 12:05 EDT ,
[2021-07-11 12:15] LABS: Bedside Glucose 152 mg/dL (74-106)
[2021-07-11] MEDS: Ferrous Sulfate 325 MG Tablet PO (12:46)
[2021-07-11] MEDS: Lactated Ringers 1,000 ML 125 ML IV (12:47)
[2021-07-11] MEDS: oxyCODONE 5 MG Tablet PO ×2 (14:05→19:45)
--- NOTE | 2021-07-11 15:07 | PCM.PN.HOSP ---
Subjective Subjective Patient was seen and examined today at the request of orthopedic surgery for medical management, patient underwent a right shoulder replacement due to osteoarthritis. Medical history includes essential hypertension, type 2 diabetes, hyperlipidemia, and osteoarthritis. At the time of my examination, patient has no complaints of any right shoulder discomfort at rest, he does not complain of any shortness of breath or chills. Patient's is in the room at the time of my examination. Objective Data Objective Data Vital Signs: Vital Signs Temp Pulse Resp BP Pulse Ox 98.6 F 68 18 108/70 98 07/11/21 14:02 07/11/21 14:02 07/11/21 14:02 07/11/21 14:02 07/11/21 14:02 Oxygen Flow Rate (L/min) 4 Oxygen Delivery Method Room Air Weight: 83.8 kg Body Mass Index (BMI) 28.0 Intake & Output: Intake and Output for Last 24 Hours 07/09/21 07/10/21 07/11/21 23:59 23:59 23:59 Intake Total 2707 / 2707 Balance 2707 / 2707 Lab / Micro Data Labs: Laboratory Results - last 24 hr 07/11/21 07:15: POC Glucose 237 H 07/11/21 11:05: POC Glucose 154 H 07/11/21 12:13: POC Glucose 152 H Micro: Microbiology 07/10/21 09:50 Interface Orders SARS-CoV-2 Antigen (Rapid) - Final Radiography Diagnostic Testing: Radiology Impression Shoulder X-Ray 07/11/21 11:20 IMPRESSION: Status post right shoulder replacement. There is good alignment. Postoperative soft tissue changes. Electronically Signed: Ryan Leonardo MD at 12:05 EDT , Physical Exam Const alert, oriented x3, no apparent distress and healthy appearing General Appearance: cooperative, well kempt and well developed Orientation / Consciousness: awake, oriented to person, oriented to place and oriented to time HEENT normocephalic, head/scalp atraumatic and moist oral mucous membranes Head and Scalp: normocephalic Eyes PERRL, EOMs intact bilaterally and conjunctivae normal Neck nuchal rigidity, supple, no JVD, thyroid normal and no carotid bruits General: trachea midline Resp normal respiratory effort and clear to auscultation bilaterally Auscultation: Negative for rales, rhonchi or wheezes Cardio regular rate, regular rhythm, S1 normal heart sound, S2 normal heart sound, no murmurs, no rub and no gallops GI normal to inspection, nondistended, normoactive bowel sounds, soft to palpation, non-tender and non-distended Extremity Extremity Narrative: There is a right shoulder immobilizer in place Skin no rashes or lesions noted General Skin Exam: no breakdown Neuro oriented x3, CN's II-XII intact bilaterally, no focal motor deficits and no sensory deficits noted Sensorium / Orientation: awake and alert Speech: speech normal Psych affect normal Assessment & Plan Assessment/Plan (1) Diabetes mellitus type 2: PLAN: 1. Essential hypertension-patient will remain on his home medication, blood pressure will be monitored #2 type 2 diabetes-patient is currently on sliding scale insulin per protocol via fingerstick blood sugars-I have changed the interval to AC/ nightly for coverage #3 hyperlipidemia-patient is on a statin and also takes niacin, I do not believe he needs fish oil supplementation while in the hospital #4 osteoarthritis-status post right reverse total shoulder replacement-patient will be seen by PT and OT, orthopedic surgery is participating in his care Charges/Coding Visit Charges Inpatient E&M: 54774 Subs Hosp L2
[2021-07-11] MEDS: Ascorbic Acid 500 MG Tablet 1000 MG PO (16:44)
[2021-07-11] MEDS: Aspirin 81 MG TAB.CHEW PO (16:44)
[2021-07-11] MEDS: metFORMIN HCl 500 MG Tablet PO (16:45)
[2021-07-11] MEDS: Cefazolin 1 GM/50 ML BAG IV (16:48)
[2021-07-11 16:50] LABS: Bedside Glucose 165 mg/dL (74-106)
[2021-07-11] MEDS: Senna/Docusate Sodium 1 Tablet 2 TABLET PO (21:25)
[2021-07-11] MEDS: Doxycycline 100 MG CAPSULE PO (21:25)
[2021-07-11] MEDS: Atorvastatin Calcium 20 MG Tablet PO (21:26)
[2021-07-11 21:56] LABS: Bedside Glucose 218 mg/dL (74-106)
[2021-07-11] MEDS: Ondansetron 4 MG/2 ML Vial IV (23:42)
[2021-07-11] MEDS: Ketorolac 15 MG/ML Vial IV (23:42)
[2021-07-12] MEDS: oxyCODONE 5 MG Tablet PO ×3 (00:22→09:42)
[2021-07-12] MEDS: Cefazolin 1 GM/50 ML BAG IV (00:22)
[2021-07-12 03:00] VITALS: BP 147/83; PULSE 75; RESP 16; TEMP 36.7; O2SAT 94
[2021-07-12] MEDS: Acetaminophen 500 MG Tablet 1000 MG PO (06:11)
[2021-07-12 06:25] LABS: Hematocrit 36.6 % (40-54); Hemoglobin 11.8 g/dL (13.0-16.5); Mean Corp Hgb Conc 32.2 g/dL (32-36); Mean Corpuscular Hgb 30.5 pg (27.0-32.0); Mean Corpuscular Volume 94.6 fL (80-94); Mean Platelet Vol. 10.3 fl (6.2-12.0); Platelet Count 148 K/mm3 (150-450); RBC Distribution Width CV 11.8 % (11.6-14.6); RBC Distribution Width SD 40.8 fl (35.1-43.9); Red Blood Count 3.87 M/mm3 (4.6-6.2); White Blood Count 9.8 K/mm3 (4.4-11.0)
[2021-07-12 06:26] LABS: Bedside Glucose 170 mg/dL (74-106)
[2021-07-12 06:55] LABS: Anion Gap 6 (5-15); BUN 17 mg/dL (7-18); Calcium,Total 8.9 mg/dL (8.5-10.1); Chloride 99 mmol/L (98-107); Creatinine, Serum 0.94 mg/dL (0.70-1.30); EST Glomerular Filtration Rate 84 mL/min (>60); Est Glom Filt Rate - Afr Amer 101 mL/min (>60); Estimated Creatinine Clearance 68.72 ml/min; Glucose 182 mg/dL (74-106); Potassium 4.6 mmol/L (3.5-5.1); Sodium Level 130 mmol/L (136-145)
[2021-07-12] MEDS: Famotidine 20 MG Tablet PO (07:34)
[2021-07-12] MEDS: Aspirin 81 MG TAB.CHEW PO (07:34)
[2021-07-12] MEDS: Ascorbic Acid 500 MG Tablet 1000 MG PO (07:34)
[2021-07-12] MEDS: Losartan Potassium 100 MG Tablet PO (07:35)
[2021-07-12] MEDS: metFORMIN HCl 500 MG Tablet PO (07:35)
[2021-07-12] MEDS: Celecoxib 200 MG Capsule PO (07:35)
[2021-07-12] MEDS: Senna/Docusate Sodium 1 Tablet 2 TABLET PO (07:35)
[2021-07-12] MEDS: Doxycycline 100 MG CAPSULE PO (07:35)
[2021-07-12] MEDS: Niacin SA 500 MG Tablet PO (07:36)
[2021-07-12] MEDS: Cholecalciferol (VIT D3) 25 MCG TABLET (1,000 UNITS) PO (07:36)
[2021-07-12] MEDS: Ketorolac 15 MG/ML Vial IV (07:40)
[2021-07-12] MEDS: 0.9% Saline Lock 10 ML Syringe IV (07:40)
--- NOTE | 2021-07-12 07:43 | PCM.PN.HOSP ---
Subjective Subjective Follow-up on right total shoulder arthroplasty: Patient was seen and examined. Patient denied any pain. His pain is fairly controlled. Able to move his fingers. Objective Data Objective Data Vital Signs: Vital Signs Temp Pulse Resp BP Pulse Ox 98.0 F 75 16 147/83 H 94 07/12/21 03:00 07/12/21 03:00 07/12/21 03:00 07/12/21 03:00 07/12/21 03:00 Oxygen Flow Rate (L/min) 4 Oxygen Delivery Method Room Air Weight: 83.8 kg Body Mass Index (BMI) 28.0 Intake & Output: Intake and Output for Last 24 Hours 07/10/21 07/11/21 07/12/21 23:59 23:59 23:59 Intake Total 3757 / 3757 400 / 400 Output Total 950 / 950 Balance 3757 / 3107 -550 / -550 Lab / Micro Data Result Diagrams: 07/12/21 05:35 07/12/21 05:35 Labs: Laboratory Results - last 24 hr 07/11/21 07:15: POC Glucose 237 H 07/11/21 11:05: POC Glucose 154 H 07/11/21 12:13: POC Glucose 152 H 07/11/21 16:42: POC Glucose 165 H 07/11/21 21:19: POC Glucose 218 H 07/12/21 05:35: WBC 9.8, RBC 3.87 L, Hgb 11.8 L, Hct 36.6 L, MCV 94.6 H, MCH 30.5, MCHC 32.2, RDW Std Deviation 40.8, RDW Coeff of Kwame 11.8, Plt Count 148 L, MPV 10.3 07/12/21 05:35: Sodium 130 L, Potassium 4.6, Chloride 99, Carbon Dioxide 25.0, Anion Gap 6, BUN 17, Creatinine 0.94, Estim Creat Clear Calc 68.72, Est GFR (MDRD) Af Amer 101, Est GFR (MDRD) Non-Af 84, BUN/Creatinine Ratio 18.0, Glucose 182 H, Calcium 8.9 07/12/21 06:10: POC Glucose 170 H Micro: Microbiology 07/10/21 09:50 Interface Orders SARS-CoV-2 Antigen (Rapid) - Final Radiography Diagnostic Testing: Radiology Impression Shoulder X-Ray 07/11/21 11:20 IMPRESSION: Status post right shoulder replacement. There is good alignment. Postoperative soft tissue changes. Electronically Signed: Ryan Leonardo MD at 12:05 EDT , Physical Exam Narrative Physical exam: General: Alert, Oriented x3, Cooperative, No apparent distress HEENT: Atraumatic Oral: Moist Mucosa Neck: Supple Lungs: Clear to auscultation Cardiovascular: HS I+II, regular, no murmurs Abdomen: Bowel Sounds Present, Soft, Non Tender Extremities: No edema, right shoulder cooling mat in place, right upper extremity sling Skin: No rashes, No breakdown Neurological: Grossly intact Psych/Mental Status: Appropriate Assessment & Plan Assessment/Plan (1) Diabetes mellitus type 2: PLAN: 1. Postop day #1 status post right reverse total shoulder replacement Patient's pain is fairly controlled, continue on celecoxib, scheduled Tylenol and as needed oxycodone Continue on prophylactic antibiotics 2. Hypertension, controlled, continue on losartan 3. Type II DM, blood sugars are fairly controlled, continue on metformin 4. Hyperlipidemia, continue on statin and niacin 5. DVT prophylaxis - aspirin twice daily Charges/Coding Visit Charges Inpatient E&M: 22052 Subs Hosp L2
[2021-07-12] MEDS: Ensure Surgery 237 ML LIQUID PO (08:14)
[2021-07-12 08:24] VITALS: BP 164/93; PULSE 69; RESP 16; TEMP 37.2; O2SAT 95
--- NOTE | 2021-07-12 09:33 | PN.ORTHO_ITS ---
Subjective Subjective The patient was sitting in bedside chair upon examination with his who came in nursing home through examination. Patient denies any chest pain, shortness of breath, dizziness, lightheadedness, nausea or vomiting, or calf pain. Pain is controlled on medications. No adverse overnight events. Patient states he let his pain go too long before taking medications. He has been taking the oxycodone and it is better. He still complains of right shoulder pain. Patient is requesting to go home today. Objective Data Objective Data Vital Signs: Vital Signs Temp Pulse Resp BP Pulse Ox 98.9 F 69 16 164/93 H 95 07/12/21 08:24 07/12/21 08:24 07/12/21 08:24 07/12/21 08:24 07/12/21 08:24 Oxygen Flow Rate (L/min) 4 Oxygen Delivery Method Room Air Weight: 83.8 kg Body Mass Index (BMI) 28.0 Intake & Output: Intake and Output for Last 24 Hours 07/10/21 07/11/21 07/12/21 23:59 23:59 23:59 Intake Total 3757 / 3757 400 / 400 Output Total 1150 / 1150 Balance 3757 / 3107 -750 / -750 Lab / Micro Data Result Diagrams: 07/12/21 05:35 07/12/21 05:35 Labs: Laboratory Results - last 24 hr 07/11/21 07:15: POC Glucose 237 H 07/11/21 11:05: POC Glucose 154 H 07/11/21 12:13: POC Glucose 152 H 07/11/21 16:42: POC Glucose 165 H 07/11/21 21:19: POC Glucose 218 H 07/12/21 05:35: WBC 9.8, RBC 3.87 L, Hgb 11.8 L, Hct 36.6 L, MCV 94.6 H, MCH 30.5, MCHC 32.2, RDW Std Deviation 40.8, RDW Coeff of Kwame 11.8, Plt Count 148 L, MPV 10.3 07/12/21 05:35: Sodium 130 L, Potassium 4.6, Chloride 99, Carbon Dioxide 25.0, Anion Gap 6, BUN 17, Creatinine 0.94, Estim Creat Clear Calc 68.72, Est GFR (MDRD) Af Amer 101, Est GFR (MDRD) Non-Af 84, BUN/Creatinine Ratio 18.0, Glucose 182 H, Calcium 8.9 07/12/21 06:10: POC Glucose 170 H Micro: Microbiology 07/10/21 09:50 Interface Orders SARS-CoV-2 Antigen (Rapid) - Final Radiography Diagnostic Testing: Radiology Impression Shoulder X-Ray 07/11/21 11:20 IMPRESSION: Status post right shoulder replacement. There is good alignment. Postoperative soft tissue changes. Electronically Signed: Ryan Leonardo MD at 12:05 EDT , Physical Exam Narrative Vital signs stable, afebrile ALEXANDRA hose are in place but the SCDs are off as he is sitting in bedside chair Dressing is clean, dry, intact Ultra-sling fitting appropriately Sensation intact to axillary, radial, median, and ulnar distribution Motor intact to AIN, PIN, and ulnar nerve Const alert, oriented x3 and no apparent distress Assessment & Plan Assessment/Plan (1) Status post reverse total arthroplasty of left shoulder: PLAN: 1. S/P left reverse total shoulder arthroplasty POD #1 2. Continue Pain Medications: Tylenol and oxycodone. 3. DVT Prophylaxis: Take 81 mg aspirin twice daily for 2 weeks postoperatively for DVT prophylaxis 4. PT/OT: Continue with UltraSling at all times except to come out for range of motion exercises of the elbow and pendulum exercise 3 times daily. No range of motion of the postoperative shoulder until outpatient physical therapy begins. Outpatient physical therapy will begin 2 weeks postoperatively after follow-up with [facility] with x-rays and incision check. 5. H & H: 11.8/36.6, asymptomatic. Postoperative anemia secondary to acute blood loss from surgery without any intra operative complications. 6. Continue antibiotics for 2 weeks postoperatively due to elevated A1c at 7.2. Patient will be on doxycycline for 2 weeks postoperatively. Patient was instructed of sensitivity to sun light and will also continue with probiotics while on antibiotic. 7. Continue postop medical management per medicine: Hospitalist is okay with discharge today from a medical standpoint 8. Encouraged Incentive Spirometry 9. Disposition: Overall patient is doing well this morning. Plan will be for discharge home today as long as patient is medically stable, tolerates therapy, and pain controlled. Patient will not participate in formal physical therapy until after his 2-week postoperative visit. This appointment is scheduled. He will follow-up per postop instructions. Prescriptions will be E scribed to [facility] pharmacy. Patient will contact our office upon discharge with any concerns or questions. I have reviewed the [place] Automated Rx Reporting System (OARRS) report for this patient for refill pattern and other prescriber involvement as part of the appropriate surveillance for the provision of acute and chronic controlled me dications. The report was requested and reviewed on the date of this entry and was considered in the prescribing process. This dictation was created using voice recognition software. Phonetic and/or grammatical errors may exist.
--- NOTE | 2021-07-12 09:42 | DCINST_ITS ---
Discharge Instructions Diet Discharge Diet: No restrictions Activity Discharge Activity: May Not Drive (Until 6 weeks postoperatively while wearing UltraSling and while taking narcotic pain medications.) May shower in (days): 1 (Dressing must be intact to skin. Turn dressing away from water.) Ice area for (Minutes): 20 (Every 1-2 hours while awake. Please place barrier between skin and ice pack.) Weight Bearing Status: No weight bearing (Postoperative upper extremity) Additional Activity Instructions:: Continue with UltraSling at all times. Please come out of UltraSling 3 times daily working on elbow range of motion and pendulum exercises. No range of motion of postoperative shoulder. Will begin outpatient physical therapy after 2-week scheduled follow-up. Dressing / Incision Call your doctor if your incision/area has: Continuous Slow Oozing, Sudden Increased Bleeding, Increased Pain/ Swelling, Increased Redness and Foul Smelling Discharge Call your doctor if you observe: Fever of 101 or Higher, Shortness of breath, Chest pain and Uncontrolled pain Remove Dressing in: 4 days (Okay to remove dressing on July 16, 2021) Additional Dressing/Incision Instructions:: Follow [facility] Post-op Instructions. Once postoperative dressing has been removed only use gentle soap and water over the incision. Do not use any ointments, Neosporin, salves, alcohol pads over the incision for 6 weeks postoperatively. Do not submerge underwater for 6 weeks postoperatively. Do NOT use alcohol with narcotic pain medication. Do NOT make important decisions while taking narcotic medication. If you have problems with taking your medication (rash, itching, nausea, etc.) call the office at once. Follow Up Care Test Results: Test results from this visit will be discussed in further detail at your follow-up appointment, if applicable. Discharge Plan Admission Admit Date/Time: 07/11/21 07:19 Attending Provider: Arsenio Raphael Primary Care Provider: Noel Rudd Consulting Providers: Skip Beckham ; Elisabeth Vivar Discharge Orders/Prescriptions Prescriptions: New acetaminophen 500 mg Tablet 1,000 mg PO TID Qty: 0 RF: 0 aspirin 81 mg tablet,delayed release (DR/EC) 81 mg PO BIDCM Qty: 0 RF: 0 doxycycline monohydrate 100 mg Capsule 100 mg PO BID 14 Days Qty: 28 RF: 0 famotidine 20 mg Tablet 20 mg PO DAILY 14 Days Qty: 14 RF: 0 oxycodone 5 mg Tablet 5 - 10 mg PO Q4H PRN PRN (Reason: Pain Score 4-10) 5 Days Qty: 60 RF: 0 Continued metformin 500 mg tablet 500 mg PO BID RF: 0 ascorbic acid (vitamin C) 1,000 mg tablet 1 g PO BID RF: 0 niacin 500 mg tablet 500 mg PO DAILY RF: 0 atorvastatin 20 mg tablet 20 mg PO QHS RF: 0 L.acidoph, paracasei,B. lactis 1 EACH capsule 1 ea PO DAILY RF: 0 ferrous sulfate 325 MG tablet 325 mg PO DAILY@0800 Qty: 30 RF: 0 cholecalciferol (vitamin D3) 1,000 UNIT tablet 1,000 unit PO DAILY RF: 0 zinc 50 MG tablet 50 mg PO QHS RF: 0 losartan 100 MG tablet 100 mg PO DAILY RF: 0 omega-3 fatty acids-fish oil 1 EACH capsule 2 cap PO DAILY RF: 0 celecoxib 200 MG capsule 200 mg PO DAILY RF: 0 docusate sodium 100 MG capsule 100 mg PO BID PRN PRN (Reason: Pain Score 1-10) RF: 0 multivitamin Tablet 1 tab PO DAILY RF: 0 Discontinued acetaminophen 500 mg Tablet 500 mg PO Q6H PRN (Reason: Pain) RF: 0 aspirin 81 mg Capsule 81 mg PO DAILY RF: 0 Referrals / Follow Up: Physical,Therapy [Other] - 07/27/21 11:00 am Noel Rudd MD [Primary Care Provider] - Chi Schneider PA-C [PHYSICIAN RETAIL SALES MANAGER] - 07/27/21 10:30 am Disposition Disposition (needs filled in before D/C Order can be placed): Home, Self Care
--- NOTE | 2021-07-12 10:45 | CASEMGMT ---
KANG BELTRAN NOTE: [facility] form explained re: Observation status for treatment of Right total shoulder reverse. Explained hospitalization will be paid per his insurance policy for Outpatient billing and condition will continue to be evaluated for Inpt necessity. Also let pt and know that [facility] sends paper in the billing packet with their phone number if questions arise. Discussed Pharmacy section of [employer] form and self administered medication guideline. Pt and verbalize understanding and do not have further questions. Form signed by , copy made and placed in chart, and original given to pt. James HERNANDEZ RN CM
--- NOTE | 2021-07-12 10:45 | CASEMGMT ---
KANG BELTRAN MGMT SPECIALIST DEVIN to room to meet with patient for initial transition planning/care coordination assessment. KANG BELTRAN introduced self and role at [facility].? Pt voices understanding and consents to assessment at this time.? Pt sitting up in chair in no distress at this time.? @ chairside. Pt is A/O at this time and answers all questions appropriately.?? Care providers, pharmacy, and demographics verified/updated at this time. PCP: Dr Noel Rudd Specialists: Dr Raphael-stefania Preferred Pharmacy: [facility] Retail Insurance: MCR, MMO Prescription Benefit:? Yes Living Will/HPOA:? Has both LW and HPOA, who is his , Rachael LNOK: , Rachael Living Arrangements: Lives w/ in 2-story home. Bed and bath on 1st floor. 5-6 steps w/railing x 2 to enter home. Stairs are special 6 steps and easy to navigate. Pt independent prior to surgery. able to assist as needed. Transportation: Pt and both drive and deny any transportation concerns. DME: ?Has the following DME:? shower chair, RTS, cane, grab bars, walker, W/C, nebulizer ?Pt and state no need for further DME at this time.? HHC/SNF: Hx [facility] and has had HHC in the past. Pt wishes to go to OP therapy @ [facility]. 1st appt scheduled for 07/27/21 @ 11 AM. Pt and aware. Pt and wish for pt to return home and state no concerns with going home at time of discharge.? PLAN: ?Home w/OP therapy @ [facility] and spousal support. James PALACIOSN KANG BELTRAN
== END 2021-07-12 11:36 | disposition home or self-care (01) ==
LOC: SDC 07:43 → MS3 07:43
PROVIDERS: Admitting Provider Specialist; PCP Family Medicine; Referring Provider Specialist; Visit Provider Specialist
PROC: (CPT 23472; principal; 2021-07-11 08:45)
DX: M19.011 Primary osteoarthritis, right shoulder (principal); E11.9 Type 2 diabetes mellitus without complications; Z87.891 Personal history of nicotine dependence; I10 Essential (primary) hypertension; Z79.84 Long term (current) use of oral hypoglycemic drugs; E78.00 Pure hypercholesterolemia, unspecified; Z79.899 Other long term (current) drug therapy; Z79.82 Long term (current) use of aspirin
CPT/HCPCS: 23472; 01638; 36415; 73030; 80048; 82962; 85027; 87426; 96361; 96365; 96366; 96375; 96376; 97110; 97166; 97535; 99218; 99251; C1776; J7050; J7120; A4216; G0378; G0463; J2405; J3475

== ENCOUNTER 2022-08-20 08:14 | Day surgery (SDC) | payer MEDICARE, OTHER, SELFPAY ==
[2022-08-20 08:37] VITALS: BP 139/61; PULSE 71; RESP 12; TEMP 36.4; O2SAT 98; BMI 26.4
[2022-08-20] MEDS: Lactated Ringers 1,000 ML 15 ML IV (08:40)
--- NOTE | 2022-08-20 09:25 | PCM.HP.BLA ---
History and Physical Date of Admission: 08/20/22 Intake Vital Signs ? 07/11/2206:30 07/27/2307:17 Height 5 ft 8 in 5 ft 8 in Weight: ? 183 lb BMI ? 27.8 BP ? 166/84 H Blood Pressure Location ? Rt brachial Position ? Sitting Respiration ? 18 Pulse ? 88 Pulse Source ? Monitor Temp ? 97.7 F L Temp Source ? Temporal Pulse Oximetry (%) ? 96 Intake Visit Reasons:?COLONOSCOPY/POSITIVE COLOGUARD Chief Complaint: colonoscopy Allergies venom-wasp [wasp sting] Allergy (Severe, Verified 12/10/21 14:24) AnaphylaxisPenicillins Allergy (Verified 07/11/21 07:53) CHILDHOOD ALLERGY Medications ascorbic acid (vitamin C) 1,000 mg tablet 1 g PO BID thigh wound 03/15/19 [History Confirmed 07/26/22] atorvastatin 20 mg tablet 20 mg PO QHS cholesterol 03/15/19 [History Confirmed 07/26/22] metformin 500 mg tablet 500 mg PO BID diabetes 03/15/19 [History Confirmed 07/26/22] niacin 500 mg tablet 500 mg PO DAILY supplement 03/15/19 [History Confirmed 07/26/22] L.acidoph, paracasei,B. lactis 10 billion cell capsule 1 ea PO DAILY probiotic 03/22/19 [History Confirmed 07/26/22] ferrous sulfate 325 mg (65 mg iron) tablet 325 mg PO DAILY@0800 anemia #30 tabs 05/04/19 [Rx Confirmed 07/26/22] cholecalciferol (vitamin D3) 25 mcg (1,000 unit) tablet 1,000 unit PO DAILY supplement 07/30/19 [History Confirmed 07/26/22] celecoxib 200 mg capsule 200 mg PO DAILY 03/22/20 [History Confirmed 07/26/22] docusate sodium 100 mg capsule 100 mg PO BID PRN PRN Pain Score 1-10 03/22/20 [History Confirmed 07/26/22] losartan 100 mg tablet 100 mg PO DAILY 03/22/20 [History Confirmed 07/26/22] omega-3 fatty acids-fish oil 340 mg-1,000 mg capsule 2 cap PO DAILY 03/22/20 [History Confirmed 07/26/22] zinc 50 mg tablet 50 mg PO QHS 03/22/20 [History Confirmed 07/26/22] multivitamin 1 tab PO DAILY 05/30/21 [History Confirmed 07/26/22] acetaminophen 500 mg tablet 1,000 mg PO TID #0 tabs 07/12/21 [Rx Confirmed 07/26/22] aspirin 81 mg tablet,delayed release 81 mg PO BIDCM #0 tabs 07/12/21 [Rx Confirmed 07/26/22] PFSH Medical History?(Updated 07/26/22 @ 08:[address] Juan C Moulton MD) Ambulates with cane Anxiety Arthritis Back pain Back problem Cardiology follow-up encounter Carpal tunnel syndrome Diabetes Former smoker Hearing problem High blood pressure High cholesterol High triglycerides History of echocardiogram History of pneumonia History of steroid therapy History of stress test Osteoarthritis Scarlet fever Wears glasses Wears hearing aid Surgical History?(Updated 07/20/21 @ 00:02 by Catia Sommer) History of carpal tunnel surgery History of elbow surgery History of epidermal inclusion cyst excision History of shoulder replacement History of total left hip replacement Hx of total hip arthroplasty Family History? Other Arthritis High cholesterol Hypertension Thyroid disorder Social History?(Updated 03/17/19 @ 21:[address] Chavo Alcala MD) Smoking Status:? Former smoker alcohol intake:? never substance use type:? does not use additional social history:? DOES USE ASPIRIN DOES USE IBUPROFEN HPI HPI HPI: Patient is a 72-year-old male here for positive Cologuard.? Patient has last colonoscopy over 10 years ago.? He denies abdominal pain or blood in the stool.? He has no family history of colon cancer. ROS General General: Yes weight change; No appetite, fatigue, colon cancer, breast cancer or weakness HEENT HEENT: No difficulty swallowing, eye injury, eye surgery, swollen glands or hoarseness Endo Endocrine: Yes diabetes mellitus; No thyroid disease, thyroid cancer, Hair loss, heat intolerance or cold intolerance Skin Skin: No rash or changing moles Breast Breast: No left breast lump, right breast lump, nipple discharge, breast pain, abnormal mammogram, abnormal US or breast enlargement Musc Musculoskeletal: Yes back problems and arthritis; No rheumatoid arthritis, gout or joint pain Cardio Cardiovascular: Yes high blood pressure; No murmur, pacemaker, heart disease, atrial fibrillation, heart attack, heart stent, palpitations, shortness of breat with exertion or chest pain Psych Psychiatric: No depression, anxiety or hearing voices Resp Respiratory: No shortness of breath, No sleep apnea, No cough, No COPD, No asthma, No emphysema and No wheezing Gastro Gastrointestinal: No abdominal pain, No nausea or vomiting, No diarrhea, No constipation, No blood in stool, No acid reflux, No hemorrhoids, No ulcers, No gallbladder problem and No black,tarry stools [place] Hematologic: No blood thinners, No blood disorders, No bleeding, No anemia and No blood clots Neuro Neurologic: No system reviewed and no additional complaints, except as documented, No as per HPI, No abnormal gait, No abnormal hearing, No abnormal movements, No abnormal speech, No behavioral changes, No burning sensations, No confusion, No convulsions, No disequilibrium, No dizziness, No localized weakness, No frequent falls, No headache(s), No lack of coordination, No loss of vision, No memory loss, Yes numbness, No other visual disturbances, No radicular pain, No restless legs, No sensory deficit, No syncope, Yes tingling, No tremor(s), No weakness and No other Exam Const General: cooperative Orientation: alert and oriented x3 [facility] Head: normal to inspection Neck Neck: normal visual inspection and full ROM Chest Chest palpation & inspection: normal inspection of the chest Resp Effort & Inspection: normal respiratory effort Auscultation: clear to auscultation bilaterally Cardio Rate: regular rate Rhythm: regular rhythm GI Inspection: non-distended Palpation: soft and nontender Skin General: no rashes or lesions noted Neuro General: patient alert and patient oriented x3 Extrem General: full ROM Psych Appearance: grossly normal Mental Status: mental status grossly normal Assessment and Plan Assessment and Plan (1) Positive colorectal cancer screening using Cologuard test: ?Status:?Acute ?Plan: I explained endoscopy in detail to the patient.? I explained the risks including but not limited to stroke or heart attack with anesthesia, perforation of the GI tract, bleeding, infection.? I explained that any of these could necessitate further emergency surgery.? The patient understands and all questions were answered sufficiently.? The patient wishes to proceed with procedure. Juan C Moulton MD Pager: [facility] [address] [place] [address], [address] [place] [address] Office: I have examined the patient and the H&P has been reviewed. There are no clinical changes since date of exam.
--- NOTE | 2022-08-20 09:52 | OP.COLON_ITS ---
Patient Name: Griffin Sampson Procedure Date: 08/20/2022 9:26 AM Date of : 1950 Age: 72 Procedure: Colonoscopy Indications: Positive Cologuard test Providers: uJan C Moulton MD Referring MD: Juan C Moulton MD Medicines: Monitored Anesthesia Care Patient Profile: This is a 72 year old male. Refer to note in patient chart for documentation of history and physical. Last Colonoscopy: several years ago. Complications: No immediate complications. Procedure: Pre-Anesthesia Assessment: - Prior to the procedure, a History and Physical was performed, and patient medications and allergies were reviewed. The patient's tolerance of previous anesthesia was also reviewed. The risks and benefits of the procedure and the sedation options and risks were discussed with the patient. All questions were answered, and informed consent was obtained. Prior Anticoagulants: The patient has taken no previous anticoagulant or antiplatelet agents. After reviewing the risks and benefits, the patient was deemed in satisfactory condition to undergo the procedure. After I obtained informed consent, the scope was passed under direct vision. Throughout the procedure, the patient's blood pressure, pulse, and oxygen saturations were monitored continuously. The colonoscope was introduced through the anus and advanced to the cecum, identified by appendiceal orifice and ileocecal valve. The colonoscopy was performed without difficulty. The patient tolerated the procedure well. The quality of the bowel preparation was good. Scope In: 9:38:24 AM Scope Withdrawal Time 0 hours 4 minutes 8 seconds Scope Out: 9:49:14 AM Total Procedure Duration Time 0 hours 10 minutes 50 seconds Findings: Multiple small-mouthed diverticula were found in the entire colon. The entire examined colon appeared normal on direct and retroflexion views. Impression: - Diverticulosis in the entire examined colon. - The entire examined colon is normal on direct and retroflexion views. - No specimens collected. Recommendation: - Discharge patient to home. - Resume previous diet. - Continue present medications. - Repeat colonoscopy in 10 years for screening purposes. Procedure Code(s): --- Professional --- 61491, Colonoscopy, flexible; diagnostic, including collection of specimen(s) by brushing or washing, when performed (separate procedure) Diagnosis Code(s): --- Professional --- R19.5, Other fecal abnormalities K57.30, Diverticulosis of large intestine without perforation or abscess without bleeding CPT copyright 2017 [employer]. All rights reserved. The codes documented in this report are preliminary and upon web applications administrator review may be revised to meet current compliance requirements. Juan C Moulton MD 08/20/2022 9:52:23 AM This report has been signed electronically. Number of Addenda: 0 Note Initiated On: 08/20/2022 9:26 AM
--- NOTE | 2022-08-20 09:53 | OP.CCLET_ITS ---
08/20/2022 Noel Rudd Re : Colonoscopy procedure for Griffin Menendez Tobin This procedure was performed on Saturday, August 20, 2022. My impressions and recommendations are as follows: Impressions : - Diverticulosis in the entire examined colon. - The entire examined colon is normal on direct and retroflexion views. - No specimens collected. Recommendations : - Discharge patient to home. - Resume previous diet. - Continue present medications. - Repeat colonoscopy in 10 years for screening purposes. My findings are described in the full procedure note, which is enclosed. If I can be of further assistance, please feel free to contact me at Doctor phone number(s): , Work: . Sincerely, Juan C Moulton MD 08/20/2022 9:52:23 AM This report has been signed electronically.
[2022-08-20 09:54] VITALS: BP 139/61; BP 86/59; PULSE 67; RESP 14; TEMP 36.6; O2SAT 97
[2022-08-20 10:15] VITALS: BP 124/81; BP 139/61; PULSE 73; RESP 18; TEMP 36.7; O2SAT 96
[2022-08-20 10:40] VITALS: BP 139/61
== END 2022-08-20 10:45 | disposition home or self-care (01) ==
LOC: EN 08:15 → AC 08:16
PROVIDERS: PCP Family Medicine; Referring Provider Family Medicine; Visit Provider Surgery
PROC: 0DJD8ZZ Inspection of Lower Intestinal Tract, Via Natural or Artificial Opening Endoscopic (ICD-10-PCS; CPT 45378; principal; 2022-08-20 09:25)
DX: K57.30 Diverticulosis of large intestine without perforation or abscess without bleeding (principal); E11.9 Type 2 diabetes mellitus without complications; Z87.891 Personal history of nicotine dependence; E78.00 Pure hypercholesterolemia, unspecified; Z79.899 Other long term (current) drug therapy; Z79.82 Long term (current) use of aspirin; Z79.84 Long term (current) use of oral hypoglycemic drugs; I10 Essential (primary) hypertension
CPT/HCPCS: 45378; J7120; J2405

== ENCOUNTER 2024-01-27 08:00 | Outpatient (RCR) | payer MEDICARE, OTHER, SELFPAY ==
--- NOTE | 2023-12-11 13:11 | HP.OTEVAL_ITS ---
Patient's Visit Information Visit Information Visit Information: OLIVIA PRESCOTT is a 73 year old M, referred to Occupational Therapy by ZOYA SILVERIO, with a diagnosis of carpal tunnel release, cubital tunnel release s/p transposition of nerve. Date of Evaluation: 12/11/23 Occupational Therapist: Pennie Proctor Subjective Subjective: This 73 year old male arrives s/p R carpal tunnel release revision with hypothenar fat flap, cubital tunnel release revision and transposition of nerve complete 11/28/23 complete in [place]. pt original carpal tunnel release as well as cubital tunnel release was approx [address] Travis Vogel. Pt is R hand dominant. [place] is retired. 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 Pt states he has needed some assistance in self care from his since the surgery. Pain R wrist: Current Pain Intensity: 4 R elbow: Current Pain Intensity: 4 Objective Objective/Observation: pr arrives in sling with wrist brace on R side. pt able to don and doff on own. swelling as well as bruising noted along elbow forearm wrist as well as fingers along dorsal aspect of hand at MCPs. pt wrist incision irritated red and slightly open. does not have any blisters or drainage at this time. Pt elbow incision intact. ROM Elbow: R -40/120 L -10/130 Forearm: R55 L75 Wrist: R 35/35 L 45/ 60 Opposition: R D4 L WFL ROM Comments: R hand able to touch finger tips to plam however night tight grasp feels tightness and pulling feeling along incision line during task L shoulder arthroplasty and R shoulder reverse arthroplasty Strength Research Specialist: L 60 Lateral Pinch: L 10 Tripod Pinch: L 10 Strength Comments: to test R at later date once able Edema Elbow: R 33 cm L 30 cm Wrist: R 19.5 cm L 17.5 cm Other: R MCP 23 cm R 22 cm Sensation Sensation Comments: occ numbness at elbow as well as thumb and D1-3 monofilament 4.08 meaning loss of light touch and protective sensation Quick DASH-Disab of Arm,Shoulder& Hand Quick DASH Score: 75.0000 Goals Goal:100% adherence to protocol: Yes Goal:Daily scar massage when approriate: Yes Goal:ROM equal to unaffected hand: Yes Goal:Research Specialist/Pinch strength at least 75% of unaffected hand: Yes Goal:No pain with affected hand use: Yes Goal:Full use of affected hand in daily activities including work: Yes Goal:Improvement in sensation documented by [place] monofiliaments: Yes Other Goal: pt will improve quick dash score by 15 points or more (75.0) in order to improve functional use of RUE during all daily tasks pt will decrease RUE swelling equal to non affected side to improve ROM and function Rehabilitation General Assessment: This 73 year old male arrives s/p completion of revision to R wrist carpal tunnel release and hypothenar fat flap as well as revision of R cubital tunnel release. Pt presents with limitations at elbow as well as wrist and digits, increase of swelling RUE, pain, sensation, anticipated decrease in R side strength impacting performance in self care as well as IADL activities and hobbies. Pt would benefit from OT services 1-2x a week for 4-6 weeks in order to maximize functional use of RUE. Rehabilitation Potential: Good Anticipated Interventions Anticipated Interventions: A/AAROM/PROM, Strengthening, Edema Control, Scar Care, Triggerpoint Release, Desensitization, Wound Care, Modalities, Orthoses, Joint Protection/Energy Conservation, Sensory Stimulation, Education re assistive Equipment, Education re Diagnosis, Caregiver Training and Home Program Visit Plan Frequency: 1-2x /Week Duration: 4-6 Weeks General Plan: AROM/AAROM/PROM edema management blocking exercise tendon glide wound management strict NWB begin strengthening at 6 weeks as tolerated TEXT: Thank you for the opportunity to evaluate your patient. For Medicare and Medicare HMO plans, please review the plan of care and approve it. It will need to be FAXED BACK to us at [phone] for Medicare purposes. Please let me know if there are questions or concerns regarding this plan of care. Physician Signature: Date:
--- NOTE | 2024-01-01 09:43 | OTREVAL_ITS ---
Re-Evaluation Intro: ZOYA SILVERIO, It has been my pleasure to treat OLIVIA PRESCOTT over the last 4 visits for carpal tunnel release, cubital tunnel release s/p transposition of nerve. Please see the progress note below for an update on the occupational therapy plan of care! Subjective Subjective: pt arrives 4 weeks 6 days from sx doing well incision now closed. Objective Objective/Function: pt to see Doctor next week before our next session updated measurements performed this session. progressing in ROM as well as strength and improved sensation. incision now healed swelling remains in hand as well as elbow. L dermatologist managing partner 60# R dermatologist managing partner 35# L lateral pinch 10# R lateral pinch 15# sensation D2-5 testing at 3.61 from 4.08 sensation at thumb now 3.84 from 4.08 L tripod pinch 8# R tripod pinch 10# wrist R 60/50 Plan Plan Frequency: 1-2x /Week Duration: 4-6 Weeks Goals Goals Patient Goals: Regain Strength, Decrease Pain, Decrease Swelling/Stiffness, Use Hand/Wrist/Arm Normally Again, Decrease Tingling/Numbness, Increase ROM, Be More Independent in ADLS, Resume Former Household Responsibilities (Cooking,Cleaning,Yard, etc.) and Resume Hobbies Goal:100% adherence to protocol: Yes Goal:Daily scar massage when approriate: Yes Goal:ROM equal to unaffected hand: Yes Goal:Cable Splicing Technician/Pinch strength at least 75% of unaffected hand: Yes Goal:No pain with affected hand use: Yes Goal:Full use of affected hand in daily activities including work: Yes Goal:Improvement in sensation documented by [place] monofiliaments: Yes Other Goal: pt will improve quick dash score by 15 points or more (75.0) in order to improve functional use of RUE during all daily tasks pt will decrease RUE swelling equal to non affected side to improve ROM and function Anticipated Interventions Anticipated Interventions Anticipated Interventions: A/AAROM/PROM, Strengthening, Edema Control, Scar Care, Triggerpoint Release, Desensitization, Wound Care, Modalities, Orthoses, Joint Protection/Energy Conservation, Sensory Stimulation, Education re assistive Equipment, Education re Diagnosis, Caregiver Training and Home Program Re-Evaluation Ending Re-evaluation ending: Please do not hesitate to contact me at [phone] by phone or if you have questions or concerns regarding this new plan of care! Sincerely, Pennie Proctor
--- NOTE | 2024-01-27 11:09 | HP.OTDCSUM_ITS ---
Discharge Summary D/C Summary: It has been my pleasure to treat OLIVIA PRESCOTT under orders from ZOYA SILVERIO, for the diagnosis of carpal tunnel release, cubital tunnel release s/p transposition of nerve for a total of 8 visit(s). Please see the following information for a summary of their discharge status. Overall Improvement % Improvement: 80 Objective Objective/Function: R wrist ROM 60/60 able to make full fist elbow ROM extension -8 elbow flexion 125 process designer strength 65 pounds lateral pinch 12 pounds tripod pinch 8 pounds sensation 3.84 thumb and D2-3 Goals Patient Goals: Regain Strength, Decrease Pain, Decrease Swelling/Stiffness, Use Hand/Wrist/Arm Normally Again, Decrease Tingling/Numbness, Increase ROM, Be More Independent in ADLS, Resume Former Household Responsibilities (Cooking,Cleaning,Yard, etc.) and Resume Hobbies Goal:100% adherence to protocol: Yes Goal Progress: Goal Met Goal:Daily scar massage when approriate: Yes Goal Progress: Goal Met Goal:ROM equal to unaffected hand: Yes Goal Progress: Goal Met Goal:Table Games Floor Supervisor/Pinch strength at least 75% of unaffected hand: Yes Goal Progress: Goal Met Goal:No pain with affected hand use: Yes Goal Progress: Goal Met Goal:Full use of affected hand in daily activities including work: Yes Goal Progress: Goal Met Goal:Improvement in sensation documented by [place] monofiliaments: Yes Goal Progress: Goal Met Other Goal: pt will improve quick dash score by 15 points or more (75.0) in order to improve functional use of RUE during all daily tasks now 9.09 GOAL met pt will decrease RUE swelling equal to non affected side to improve ROM and function GOAL MET D/C Information Discharge Comments: This 73 year old male seen with dx of carpal tunnel revision release and nerve transposition. pt seen in therapy for ROM, pain management, wound care and progressive strengthening once able. pt progressed in POC and now achieved all goals. discharge at this time with pt in agreeance. d/c sentence: If there are questions or concerns regarding this patient's occupational therapy, please fell free to call me at [phone]. Thank you for the referral of this patient. Sincerely, Pennie Proctor
--- NOTE | 2024-01-27 11:09 | HP.OT.NRP ---
Patient Information Patient Information: OLIVIA PRESCOTT was seen in my office for initial evaluation on 12/11/23. The following Plan of Care was established for this patient: POC Established Initial Frequency: 1-2x /Week Initial Duration: 4-6 Weeks Anticipated Interventions Anticipated Interventions: A/AAROM/PROM, Strengthening, Edema Control, Scar Care, Triggerpoint Release, Desensitization, Wound Care, Modalities, Orthoses, Joint Protection/Energy Conservation, Sensory Stimulation, Education re assistive Equipment, Education re Diagnosis, Caregiver Training and Home Program Last Seen Last Seen: This patient was last seen in our office 01/27/24. Pertinent comments regarding their Occupational therapy will appear below: This 73 year old male seen with dx of carpal tunnel revision release and nerve transposition. pt seen in therapy for ROM, pain management, wound care and progressive strengthening once able. pt progressed in POC and now achieved all goals. discharge at this time with pt in agreeance. At this point I will be discontinuing this patient from occupational therapy. I would be happy to see this patient again in the future if found appropriate by the physician. Thank you! Pennie Proctor
== END 2024-01-27 19:00 | disposition home or self-care (01) ==
LOC: OT 08:00
PROVIDERS: PCP Family Medicine
DX: G56.01 Carpal tunnel syndrome, right upper limb (principal); G56.21 Lesion of ulnar nerve, right upper limb; Z98.890 Other specified postprocedural states
CPT/HCPCS: 97110; 97140; 97165; 97530